=== PATIENT | male | born 1935 | race Caucasian/White ===

== ENCOUNTER 2017-02-16 12:54 | Inpatient (IN) | payer MEDICARE, OTHER ==
--- NOTE | 2017-02-16 13:26 | PDOC ---
History of Present Illness - General Chief Complaint: Shortness of Breath Stated Complaint: DIFFICULTY BREATHING Time Seen by Provider: 02/16/17 13:15 History Source: Patient, Spouse Exam Limitations: No Limitations - History of Present Illness Initial Comments: 81 yo M history HTN, hypothyroid, afib presents with pna. He saw Dr. Cox earlier today, was referred for CXR that showed pna and B/L pleural effusions. He was short of breath, cough producing brown sputum. His shortness of breath improved with oxygen, given at his PMD's office. He had a CT of the chest, as well, which also showed the effusions and consolidation. He was sent for admission. Past History - Past Medical History Allergies/Adverse Reactions: Allergies Allergy/AdvReac Type Severity Reaction Status Date / Time Penicillins Allergy Verified 02/16/17 13:24 Home Medications: Ambulatory Orders Aspirin [ASA -] 81 mg PO DAILY 02/16/17 Atorvastatin Ca [Lipitor] 40 mg PO HS 02/16/17 Dabigatran Etexilate Mesylate [Pradaxa -] 150 mg PO BID 02/16/17 Levothyroxine [Synthroid -] 25 mcg PO DAILY 02/16/17 Metoprolol Succinate [Toprol Xl -] 25 mg PO DAILY 02/16/17 Ranolazine [Ranexa -] 500 mg PO BID 02/16/17 Tamsulosin HCl [Flomax] 0.4 mg PO DAILY 02/16/17 - Psycho/Social/Smoking Cessation Hx Suicidal Ideation: No Smoking History: Never smoked Hx Alcohol Use: No Drug/Substance Use Hx: No Review of Systems - Review of Systems Able to Perform ROS?: Yes Comments:: GENERAL/CONSTITUTIONAL: +Fever/chills. No weakness. HEAD, EYES, EARS, NOSE AND THROAT: No change in vision. No ear pain or discharge. No sore throat. CARDIOVASCULAR: No chest pain. +Shortness of breath. RESPIRATORY: +Cough. No wheezing or hemoptysis. GASTROINTESTINAL: No nausea, vomiting, diarrhea or constipation. GENITOURINARY: No dysuria, frequency, or change in urination. MUSCULOSKELETAL: No joint or muscle swelling or pain. No neck or back pain. SKIN: No rash NEUROLOGIC: No headache, vertigo, loss of consciousness, or change in strength/ sensation. ENDOCRINE: No increased thirst. No abnormal weight change. HEMATOLOGIC/LYMPHATIC: No anemia, easy bleeding, or history of blood clots. ALLERGIC/IMMUNOLOGIC: No hives or skin allergy. *Physical Exam - Vital Signs Last Vital Signs Temp Pulse Resp BP Pulse Ox 101.5 F H 96 H 19 154/84 90 L 02/16/17 13:22 02/16/17 13:22 02/16/17 13:22 02/16/17 13:22 02/16/17 13:22 - Physical Exam Comments: GENERAL: Awake, alert, and fully oriented, in no acute distress. Appears ill but nontoxic. HEAD: No signs of trauma EYES: PERRLA, EOMI, sclera anicteric, conjunctiva clear ENT: Auricles normal inspection, hearing grossly normal, nares patent, oropharynx clear without exudates. Moist mucosa NECK: Normal ROM, supple, no lymphadenopathy, JVD, or masses LUNGS: Breath sounds equal, clear to auscultation bilaterally. No wheezes, and no crackles HEART: Regular rate and rhythm, normal S1 and S2, no murmurs, rubs or gallops ABDOMEN: Soft, nontender, normoactive bowel sounds. No guarding, no rebound. No masses EXTREMITIES: Normal range of motion, no edema. No clubbing or cyanosis. No cords, erythema, or tenderness NEUROLOGICAL: Cranial nerves II through XII grossly intact. Normal speech, normal gait SKIN: Warm, Dry, normal turgor, no rashes or lesions noted. Heart Score/ECG Review - ECG Impressions Comment:: EKG read 13:24- afib 90 bpm, incomplete RBBB ED Treatment Course - LABORATORY CBC & Chemistry Diagram: 02/16/17 13:53 02/16/17 13:53 Medical Decision Making - Medical Decision Making Case d/w Dr. Spears. Will admit for pna. I have treated with levaquin for CAP. Will place on tele, as patient was desatting off O2, requiring 4L nasal cannula. *DC/Admit/Observation/Transfer Diagnosis at time of Disposition: Pleural effusion Pneumonia Qualifiers: Pneumonia type: due to unspecified organism Laterality: unspecified laterality Lung location: unspecified part of lung Qualified Code(s): J18.9 - Pneumonia, unspecified organism - Discharge Dispostion Condition at time of disposition: Guarded Admit: Yes
[2017-02-16] MEDS ORDERED: LEVOFLOXACIN 750 MG IVPB 150 ML IVPB ONE ×2 (13:43→13:56)
[2017-02-16] MEDS ORDERED: ACETAMINOPHEN 650 MG/20.3 ML ORAL SOLUTION (CUPS) ONE (13:56)
[2017-02-16 14:08] LABS: BASOPHIL 0.4 % (0-2.0); EOSINOPHIL 0.8 % (0-4.5); MCH 27.3 pg (25.7-33.7); MCHC 31.7 g/dl (32.0-35.9); MEAN CELL VOLUME 86.1 fl (80-96); MEAN PLT VOLUME 8.9 fl (7.5-11.1); NEUTROPHILS 77.5 % (42.8-82.8); PLATELET COUNT 167 K/MM3 (134-434); RDW 15.1 % (11.9-15.9); WHITE BLOOD COUNT 6.8 K/mm3 (4.0-10.0)
[2017-02-16 14:15] LABS: URINE APPEARANCE CLEAR; URINE BILIRUBIN NEGATIVE (NEGATIVE); URINE BLOOD NEGATIVE (NEGATIVE); URINE COLOR LTYELLOW; URINE GLUCOSE (UA) NEGATIVE (NEGATIVE); URINE KETONE 1+ (NEGATIVE); URINE LEUK ESTERASE NEGATIVE (NEGATIVE); URINE NITRITE NEGATIVE (NEGATIVE); URINE PROTEIN NEGATIVE (NEGATIVE); URINE UROBILINOGEN 2.0 E.U/dl E.U./dl (0.2-1.0)
[2017-02-16] MEDS ORDERED: ACETAMINOPHEN 325 MG TABLET (FP) PO ONE (14:20)
[2017-02-16] MEDS ORDERED: SODIUM CHLORIDE 1,000 ML IV STA (14:20)
[2017-02-16 14:21] LABS: ALBUMIN 3.3 g/dl (3.4-5.0); ANION GAP 12 (8-16); CALCIUM 7.9 mg/dL (8.5-10.1); CO2 28 mmol/L (21-32); CREATININE 0.8 mg/dL (0.7-1.3); GLUCOSE,RANDOM 123 mg/dL (74-106); SGPT/ALT 16 U/L (12-78)
[2017-02-16 14:22] LABS: INR 1.4 (0.82-1.09); PROTHROMBIN TIME (PATIENT) 15.5 SEC (9.98-11.88)
[2017-02-16 14:25] LABS: ACTIVATED PTT 34.5 SECONDS (26.9-34.4)
[2017-02-16 14:43] LABS: ALK PHOS 103 U/L (45-117); BILIRUBIN,TOTAL 1.1 mg/dL (0.2-1.0); SGOT/AST 13 U/L (15-37); TOT PROT 6.3 g/dl (6.4-8.2); TROPONIN I 0.02 ng/ml (0.00-0.05)
[2017-02-16 14:52] LABS: VENOUS PH 7.42 (7.32-7.42)
[2017-02-16 14:56] LABS: VENOUS BLOOD GAS HCO3 26.8 meq/L (19-25)
[2017-02-16 17:23] VITALS: BMI 23.6
[2017-02-16] MEDS ORDERED: DEXTROSE IV ONE (22:00)
[2017-02-16] MEDS ORDERED: [UNRECOGNIZED DRUG - OTHER] IV ONE (22:00)
--- NOTE | 2017-02-16 23:32 | HP ---
Admitting History and Physical - Admission Chief Complaint: Shortness of breath History of Present Illness: Pt is a 81 y/o male w/ PMH significant for HTN, afib, PPM, hypothyroidism and BPH. Pt presented to his PMD w/ a productive cough w/ dark sputum and dyspnea. He was also found to be in rapid afib w/ heart rate of >110. Pt denies any chest pain. A CXR done in the office showed consolidation. Pt is slightly tremulous and feeling weak w/ poor appetite. In the ER pt found to have heart rate of 90's and O2 sat of 90. History Source: Patient - Past Medical History Cardiovascular: Yes: AFIB, HTN Renal/: Yes: BPH Endocrine: Yes: Hypothyroidism - Past Surgical History Past Surgical History: Yes: Permanent Pacemaker - Smoking History Smoking history: Never smoked - Alcohol/Substance Use Hx Alcohol Use: No Home Medications - Allergies Allergies/Adverse Reactions: Allergies Allergy/AdvReac Type Severity Reaction Status Date / Time Penicillins Allergy Verified 02/16/17 13:24 - Home Medications Home Medications: Ambulatory Orders Aspirin [ASA -] 81 mg PO DAILY 02/16/17 Atorvastatin Ca [Lipitor] 40 mg PO HS 02/16/17 Dabigatran Etexilate Mesylate [Pradaxa -] 150 mg PO BID 02/16/17 Levothyroxine [Synthroid -] 25 mcg PO DAILY 02/16/17 Metoprolol Succinate [Toprol Xl -] 25 mg PO DAILY 02/16/17 Ranolazine [Ranexa -] 500 mg PO BID 02/16/17 Tamsulosin HCl [Flomax] 0.4 mg PO DAILY 02/16/17 Family Disease History - Family Disease History Family History: Unremarkable Review of Systems - Review of Systems Constitutional: reports: Loss of Appetite, Malaise, Weakness Eyes: reports: No Symptoms HENT: reports: No Symptoms Neck: reports: No Symptoms Cardiovascular: reports: Shortness of Breath Respiratory: reports: Cough, SOB Gastrointestinal: reports: No Symptoms Physical Examination Vital Signs: Vital Signs Temperature 97.6 F 02/16/17 18:00 Pulse Rate 88 02/16/17 18:00 Respiratory Rate 18 02/16/17 18:00 Blood Pressure 150/81 02/16/17 18:00 O2 Sat by Pulse Oximetry (%) 97 02/16/17 20:28 Constitutional: Yes: Well Nourished Eyes: Yes: WNL HENT: Yes: WNL Neck: Yes: Supple Cardiovascular: Yes: Tachycardia Respiratory: Yes: Rhonchi Gastrointestinal: Yes: WNL, Normal Bowel Sounds, Soft Musculoskeletal: Yes: WNL Extremities: Yes: WNL Edema: No Neurological: Yes: WNL, Alert, Oriented Problem List - Problems (1) Pneumonia Assessment/Plan: Cont IV levaquin/nebulizer Lactic acid increased therefore pt started on IVF Repeat level in am O2 sat improved w/ NC Pulmonary consult Code(s): J18.9 - PNEUMONIA, UNSPECIFIED ORGANISM Qualifiers: Pneumonia type: due to unspecified organism Laterality: unspecified laterality Lung location: unspecified part of lung Qualified Code(s): J18.9 - Pneumonia, unspecified organism (2) Pleural effusion Code(s): J90 - PLEURAL EFFUSION, NOT ELSEWHERE CLASSIFIED Assessment/Plan 1. Afib Heart rate slightly elevated Cardio consult Cont pradaxa/metoprolol 2. HTN BP slightly elevated Cont meds 3. BPH Cont flomax 4. Hypothyroidism Cont levothyroxine Check TSH
[2017-02-17] MEDS: DEXTROSE 5%-0.45% SALINE 1,000 ML IV SCH ×2 (05:27→19:15)
[2017-02-17] MEDS: LEVOTHYROXINE NA 25 MCG TABLET (FP) PO SCH (06:26)
[2017-02-17 07:26] LABS: BASOPHIL 0.1 % (0-2.0); MCH 27.7 pg (25.7-33.7); MCHC 32.9 g/dl (32.0-35.9); MEAN CELL VOLUME 84.2 fl (80-96); MEAN PLT VOLUME 8.8 fl (7.5-11.1); NEUTROPHILS 87.3 % (42.8-82.8); PLATELET COUNT 154 K/MM3 (134-434); RDW 14.7 % (11.9-15.9); WHITE BLOOD COUNT 5.6 K/mm3 (4.0-10.0)
[2017-02-17] MEDS: TAMSULOSIN HCL 0.4 MG CAP.ER.24H (FP) PO SCH (08:14)
[2017-02-17 08:15] LABS: ALBUMIN 2.9 g/dl (3.4-5.0); ANION GAP 10 (8-16); BILIRUBIN,TOTAL 0.6 mg/dL (0.2-1.0); CALCIUM 7.8 mg/dL (8.5-10.1); CO2 27 mmol/L (21-32); CREATININE 0.7 mg/dL (0.7-1.3); GLUCOSE,RANDOM 232 mg/dL (74-106); SGOT/AST 13 U/L (15-37); SGPT/ALT 18 U/L (12-78)
[2017-02-17 08:24] LABS: ALK PHOS 95 U/L (45-117); THYROID STIMULATING HORMONE 0.44 uIU/ml (0.358-3.74)
--- NOTE | 2017-02-17 08:44 | CON.CARD ---
Consult Consult Specialty:: Cardiology Referred by:: Dr. Spears Reason for Consultation:: SOB - History of Present Illness Chief Complaint: SOB History of Present Illness: 81 year old man h/o HTN, HLD, CAD s/p CABG 10/2011, Afib on pradaxa, PPM, Moderate MR, chronic diastolic CHF, mild pah, admitted for sob, hypoxia, PNA. Pt seen and examined today in nad. states he is feeling better. denies any chest pain. no edema. no palpitations, lightheadedness, dizziness, syncope, near syncope. no pnd, orthopnea. - History Source History Provided By: Patient, Medical Record Limitations to Obtaining History: Language Barrier - Past Medical History Cardio/Vascular: Yes: AFIB, CAD, CHF, HTN, Hyperlipdemia, Mitral Insufficiency, Murmur, Pulmonary Hypertension Pulmonary: Yes: Pneumonia Renal/: Yes: BPH Endocrine: Yes: Hypothyroidism - Past Surgical History Past Surgical History: Yes: Permanent Pacemaker - Alcohol/Substance Use Hx Alcohol Use: No - Smoking History Smoking history: Never smoked - Social History ADL: Independent History of Recent Travel: No Home Medications - Allergies Allergies/Adverse Reactions: Allergies Allergy/AdvReac Type Severity Reaction Status Date / Time Penicillins Allergy Verified 02/16/17 13:24 - Home Medications Home Medications: Ambulatory Orders Aspirin [ASA -] 81 mg PO DAILY 02/16/17 Atorvastatin Ca [Lipitor] 40 mg PO HS 02/16/17 Dabigatran Etexilate Mesylate [Pradaxa -] 150 mg PO BID 02/16/17 Levothyroxine [Synthroid -] 25 mcg PO DAILY 02/16/17 Metoprolol Succinate [Toprol Xl -] 25 mg PO DAILY 02/16/17 Ranolazine [Ranexa -] 500 mg PO BID 02/16/17 Tamsulosin HCl [Flomax] 0.4 mg PO DAILY 02/16/17 Family Disease History - Family Disease History Family History: Denies Review of Systems - Review of Systems Constitutional: reports: Malaise, Weakness. denies: No Symptoms, Chills, Diaphoresis, Fever, Lethargy, Loss of Appetite, Night Sweats, Unintentional Wgt. Loss, Other Eyes: denies: No Symptoms, Blind Spots, Blurred Vision, Double Vision, Eye Pain , Floaters, Photophobia, Recent Change in Vision, Other HENT: denies: No Symptoms, Difficult Swallowing, Ear Discharge, Ear Pain, Epistaxis, Gingival Bleeding, Hearing Loss, Mouth Swelling, Nasal Congestion, Ocular Prosthesis, Throat Pain, Toothache, Ringing in Ears, Other Neck: denies: No Symptoms, Decreased ROM, Lumps, Pain on Movement, Stiffness, Swollen Glands, Tenderness, Other Cardiovascular: reports: Shortness of Breath. denies: No Symptoms, Chest Pain, Edema, Palpitations, Other Respiratory: reports: Cough, Exercise Intolerance, SOB, SOB on Exertion. denies : No Symptoms, Hemoptysis, Orthopnea, PND, Snoring, Wheezing, Other Gastrointestinal: denies: No Symptoms, Abdominal Pain, Bloating, Constipation, Diarrhea, Dysphagia, Indigestion, Melena, Nausea, Rectal Bleeding, Vomiting, Vomiting Blood, Other Genitourinary: denies: No Symptoms, Burning, Discharge, Dysuria, Flank Pain, Frequency, Hematuria, Incontinence, Lesions, Menses, Pain, Testicular Mass, Testicular Pain, Testicular Swelling, Urgency, Vaginal Bleeding, Other Breasts: denies: No Symptoms Reported, See HPI, Breast Implants, Discharge from Nipple, Lumps, Pain, Skin Changes, Other Musculoskeletal: denies: No Symptoms, Back Pain, Crepitus, Decreased ROM, Extremity Pain, Joint Pain, Joint Swelling, Muscle Pain, Muscle Cramps, Muscle Weakness, Other Integumentary: denies: No Symptoms, Blister, Bruising, Change in Color, Eczema, Erythema, Incision, Lesions, Lump, Pallor, Pruritis, Rash, Wound, Other Neurological: denies: No Symptoms, Change in LOC, Change in Speech, Confusion, Dizziness, Headache, Incoordination, Numbness, Parasthesia, Pre-Existing Deficit , Seizure, Syncope, Tremors, Unsteady Gait, Weakness, Other Endocrine: denies: No Symptoms, Excessive Sweating, Flushing, Increased Hunger, Increased Thirst, Intolerance to Cold, Intolerance to Heat, Unexplained Weight Gain, Unexplained Weight Loss, Other Hematology/Lymphatic: denies: No Symptoms, Easily Bruised, Excessive Bleeding, Swollen Glands, Other Psychiatric: denies: No Symptoms, Altered Sleep Pattern, Anxiety, Depression, Hallucinations, Panic, Paranoia, Suicidal, Other - Risk Factors Known Risk Factors: Yes: Hypercholesterolemia, Hypertension Vital Signs: Vital Signs Temperature 98.7 F 02/16/17 23:00 Pulse Rate 82 02/17/17 06:00 Respiratory Rate 20 02/17/17 06:00 Blood Pressure 148/79 02/17/17 06:00 O2 Sat by Pulse Oximetry (%) 97 02/16/17 20:28 Constitutional: Yes: Well Nourished, No Distress, Calm Eyes: Yes: WNL, Conjunctiva Clear, EOM Intact HENT: Yes: WNL, Atraumatic, Normocephalic Neck: Yes: WNL, Supple, Trachea Midline Respiratory: Yes: Regular, Diminished, On Nasal O2, Rales, Rhonchi. No: Wheezes Gastrointestinal: Yes: WNL, Normal Bowel Sounds, Soft. No: Distention, Tenderness Renal/: Yes: WNL Cardiovascular: Yes: Pulse Irregular. No: Regular Rate and Rhythm, Bradycardia , Tachycardia, Gallop, Rub, Varicosities JVD: No Carotid Bruit: No PMI: Non-Displaced Heart Sounds: Yes: S1, S2. No: Split S2, S3, S4, Clicks, Gallop, Rub, Bruit Murmur: Yes: Systolic Murmur. No: Diastolic Murmur Musculoskeletal: Yes: WNL Extremities: Yes: WNL Edema: No Peripheral Pulses WNL: Yes Peripheral Pulses: 2+ Left Doralis Pedis, 2+ Right Dorsalis Pedis Integumentary: Yes: WNL Neurological: Yes: WNL, Alert, Oriented, Cran Nerves II-XII Intact ...Motor Strength: WNL Psychiatric: Yes: WNL, Alert, Oriented - Other Data Labs, Other Data: CBC, BMP 02/17/17 05:35 INR, PTT INR 1.40 (0.82-1.09) H 02/16/17 13:53 ekg-AFib 100bpm, incomplete RBBB, nsst Echo: Report Reviewed Prior Cardiac Procedures: CABG Imaging - Results Chest X-ray: Report Reviewed, Image Reviewed EKG: Report Reviewed, Image Reviewed Other: Report Reviewed, Image Reviewed (tele-afib, HR overall adequately controlled) Problem List - Problems (1) Pleural effusion Code(s): J90 - PLEURAL EFFUSION, NOT ELSEWHERE CLASSIFIED (2) Pneumonia Code(s): J18.9 - PNEUMONIA, UNSPECIFIED ORGANISM Qualifiers: Pneumonia type: due to unspecified organism Laterality: unspecified laterality Lung location: unspecified part of lung Qualified Code(s): J18.9 - Pneumonia, unspecified organism (3) SOB (shortness of breath) Code(s): R06.02 - SHORTNESS OF BREATH (4) Hypoxemia Code(s): R09.02 - HYPOXEMIA (5) CAD (coronary artery disease) Code(s): I25.10 - ATHSCL HEART DISEASE OF [place] CORONARY ARTERY W/O ANG PCTRS (6) Hx of CABG Code(s): Z95.1 - PRESENCE OF AORTOCORONARY BYPASS GRAFT (7) Chronic atrial fibrillation Code(s): I48.2 - CHRONIC ATRIAL FIBRILLATION (8) HTN (hypertension) Code(s): I10 - ESSENTIAL (PRIMARY) HYPERTENSION (9) HLD (hyperlipidemia) Code(s): E78.5 - HYPERLIPIDEMIA, UNSPECIFIED (10) Pulmonary HTN Code(s): I27.2 - OTHER SECONDARY PULMONARY HYPERTENSION (11) Mitral regurgitation Code(s): I34.0 - NONRHEUMATIC MITRAL (VALVE) INSUFFICIENCY (12) Acute on chronic diastolic (congestive) heart failure Code(s): I50.33 - ACUTE ON CHRONIC DIASTOLIC (CONGESTIVE) HEART FAILURE Assessment/Plan 81 year old man h/o HTN, HLD, CAD s/p CABG 10/2011, JAVIER ligation, Afib on pradaxa, PPM, Moderate MR, severe TR, chronic diastolic CHF, mild pah, COPD, admitted for sob, hypoxia, PNA. Pt seen and examined today in nad. states he is feeling better. denies any chest pain. no edema. no palpitations, lightheadedness, dizziness, syncope, near syncope. no pnd, orthopnea. SOB-hypoxia, multifactorial, pna, copd, acute on chronic diastolic CHF, valvular heart disease -cont Abx -can give trial of Lasix 20mg IV daily -monitor I/Os and daily weights -monitor bun/creat -monitor and replete electrolytes as needed -pulmonary to evaluate Atrial fibrillation-chronic, HR adequately controlled, h/o PPM -cont toprol, pradaxa CAD h/o cabg, stable -cont asa, statin, ranexa Recent cardiac work up: Stress- 03/31- 3:30 julia, no cp, ecg neg at 89%mphr, no ischemia, lvef 60% Cath- mod phtn, nml lv function, mod mr, sever lm dz, mod lcx and ostial ramus, non obs rca 09/26 Echo- 03/31- no effusion, nml lv fxn, severe tr, rvsp 31, mild lvh, ppm wire, lae Carotid 03/31- Bilateral mild calcified plaque with no evidence of significant stenosis. PPM interrogation- 03/31- [employer] Single Chamber PPM VVI 60underlying rhythm sinusbattery status 8 years22% [id number] vent episodes since 02/15/15- all appear to be rapidly conducting afib- longest 1min 29 sec w avg rate 148
[2017-02-17] MEDS: METOPROLOL SUCCINATE 25 MG TAB.SR.24H (FP) PO SCH (09:52)
[2017-02-17] MEDS: LEVOFLOXACIN 500 MG IVPB 100 ML IVPB SCH (09:52)
[2017-02-17] MEDS: DABIGATRAN ETEXILATE MESYLATE 150 MG CAPSULE PO SCH ×2 (09:52→21:17)
[2017-02-17] MEDS: RANOLAZINE E.R. 500 MG TABLET (FP) PO SCH ×2 (09:52→21:17)
[2017-02-17] MEDS: ASPIRIN 81 MG CHEWABLE TABLETS PO SCH (09:52)
[2017-02-17] MEDS: ALBUTEROL SO4 2.5/IPRATROPIUM 0.5 INH SOL 3 ML VIAL.NEB. NEB PRN ×2 (10:40→22:05)
--- NOTE | 2017-02-17 11:28 | PN ---
Progress Note (short form) - Note Progress Note: PULMONARY CONSULTATION DICTATED 02/17/17 IMP ACUTE HYPOXEMIC RESPIRATORY FAILURE RUL PNEUMONIA HEMOPTYSIS SECONDARY TO PNEUMONIA CHF DECOMPENSATED PULMONARY HTN AFIB S/P PPM HTN HLD ELEVATED LACTATE LEVEL PLAN IV ANTIBIOTICS INHALED BRONCHODILATORS NASAL O2 SPUTUM C+S CHEST CT LASIX PRN TREND LACTATE DR TORRES Problem List - Problems (1) Acute hypoxemic respiratory failure Code(s): J96.01 - ACUTE RESPIRATORY FAILURE WITH HYPOXIA (2) Hemoptysis Code(s): R04.2 - HEMOPTYSIS (3) Acute on chronic diastolic (congestive) heart failure Code(s): I50.33 - ACUTE ON CHRONIC DIASTOLIC (CONGESTIVE) HEART FAILURE (4) CAD (coronary artery disease) Code(s): I25.10 - ATHSCL HEART DISEASE OF [place] CORONARY ARTERY W/O ANG PCTRS (5) Chronic atrial fibrillation Code(s): I48.2 - CHRONIC ATRIAL FIBRILLATION (6) HLD (hyperlipidemia) Code(s): E78.5 - HYPERLIPIDEMIA, UNSPECIFIED (7) HTN (hypertension) Code(s): I10 - ESSENTIAL (PRIMARY) HYPERTENSION (8) Hx of CABG Code(s): Z95.1 - PRESENCE OF AORTOCORONARY BYPASS GRAFT (9) Hypoxemia Code(s): R09.02 - HYPOXEMIA (10) Mitral regurgitation Code(s): I34.0 - NONRHEUMATIC MITRAL (VALVE) INSUFFICIENCY (11) Pleural effusion Code(s): J90 - PLEURAL EFFUSION, NOT ELSEWHERE CLASSIFIED (12) Pneumonia Code(s): J18.9 - PNEUMONIA, UNSPECIFIED ORGANISM Qualifiers: Pneumonia type: due to unspecified organism Laterality: unspecified laterality Lung location: unspecified part of lung Qualified Code(s): J18.9 - Pneumonia, unspecified organism (13) Pulmonary HTN Code(s): I27.2 - OTHER SECONDARY PULMONARY HYPERTENSION (14) SOB (shortness of breath) Code(s): R06.02 - SHORTNESS OF BREATH (15) Elevated lactic acid level Code(s): R79.89 - OTHER SPECIFIED ABNORMAL FINDINGS OF BLOOD CHEMISTRY
[2017-02-17] MEDS: FUROSEMIDE 40 MG/4 ML INJECTABLE VIAL IVPUSH SCH (12:48)
--- NOTE | 2017-02-17 17:38 | EKG ---
Test Reason : Blood Pressure : / mmHG Vent. Rate : 090 BPM Atrial Rate : 079 BPM P-R Int : 000 ms QRS Dur : 098 ms QT Int : 354 ms P-R-T Axes : 000 069 030 degrees QTc Int : 433 ms ATRIAL FIBRILLATION INCOMPLETE RIGHT BUNDLE BRANCH BLOCK ABNORMAL ECG NO PREVIOUS ECGS AVAILABLE Confirmed by WATSON HOLLOWAY MD ([id number]) on 02/17/2017 5:38:28 PM Referred By: Confirmed By:WATSON HOLLOWAY MD
--- NOTE | 2017-02-17 20:14 | PN ---
Progress Note, Physician - Current Medication List Current Medications: Active Medications Albuterol/Ipratropium (Duoneb -) 1 amp NEB Q6H PRN PRN Reason: SHORTNESS OF BREATH Last Admin: 02/17/17 10:40 Dose: 1 amp Aspirin (Asa -) 81 mg PO DAILY [facility] Last Admin: 02/17/17 09:52 Dose: 81 mg Atorvastatin Calcium (Lipitor -) 40 mg PO HS [facility] Dabigatran (Pradaxa -) 150 mg PO BID [facility] Last Admin: 02/17/17 09:52 Dose: 150 mg Furosemide (Lasix Injection -) 20 mg IVPUSH DAILY [facility] Last Admin: 02/17/17 12:48 Dose: 20 mg Dextrose/Sodium Chloride (D5-1/2ns -) 1,000 mls @ 75 mls/hr IV ASDIR [facility] Last Admin: 02/17/17 19:15 Dose: 75 mls/hr Levofloxacin (Levaquin 500 Mg Premixed Ivpb -) 100 mls @ 100 mls/hr IVPB DAILY [facility] Last Admin: 02/17/17 09:52 Dose: 100 mls/hr Levothyroxine Sodium (Synthroid -) 25 mcg PO DAILY@0700 [facility] Last Admin: 02/17/17 06:26 Dose: 25 mcg Metoprolol Succinate (Toprol Xl -) 25 mg PO DAILY [facility] Last Admin: 02/17/17 09:52 Dose: 25 mg Ranolazine (Ranexa -) 500 mg PO BID [facility] Last Admin: 02/17/17 09:52 Dose: 500 mg Tamsulosin HCl (Flomax -) 0.4 mg PO DAILY@0830 [facility] Last Admin: 02/17/17 08:14 Dose: 0.4 mg - Objective Vital Signs: Vital Signs Temperature 97.9 F 02/17/17 20:02 Pulse Rate 90 02/17/17 20:02 Respiratory Rate 20 02/17/17 20:02 Blood Pressure 146/84 02/17/17 20:02 O2 Sat by Pulse Oximetry (%) 94 L 02/17/17 20:02 Constitutional: Yes: No Distress HENT: Yes: Atraumatic Neck: Yes: Supple Cardiovascular: Yes: Regular Rate and Rhythm Respiratory: Yes: Rhonchi Gastrointestinal: Yes: Normal Bowel Sounds Extremities: Yes: WNL Neurological: Yes: Alert, Oriented Labs: CBC, BMP 02/17/17 05:35 02/17/17 05:35 INR, PTT INR 1.40 (0.82-1.09) H 02/16/17 13:53 Assessment/Plan A/P 1.RUL PNA IV ABX DUO NEBS 2.HEMOPTYSIS SECONDARY TO PNA FU H/H 3.CHF ON LASIX 4.AFIB 5.HTN 6.HLD REVIEWED AL [facility] CONTINUE CURRENT MANAGEMENT FU LABS ROUNDING FOR DR CAMPOS TODAY
--- NOTE | 2017-02-17 20:38 | CONS ---
DATE OF CONSULTATION: 02/17/2017 REFERRING PHYSICIAN: Jolly Spears MD HISTORY OF PRESENT ILLNESS: The patient is an 81-year-old male with an extensive past medical history including ASHD, status post CABG in 2010, atrial fibrillation that is maintained on Pradaxa, status post permanent pacemaker, mitral regurgitation, chronic diastolic CHF, mild pulmonary hypertension, hypertension, hyperlipidemia, history of smoking many years ago, admitted to [facility] with shortness of breath, cough, and hypoxemia. Patient apparently was seen earlier in the day by his PMD, at which time a chest x-ray was performed, which revealed evidence of pneumonia as well as pleural effusion, at which time he presented to the emergency room. Patient denies any chest pain. He does state that he had a fever a couple of days ago, not any chills. He denies any history of occupational exposure to chemicals or fumes. There is no evidence of DVT or PE in the past. There is no history of recent travel. He was born in the [place] and moved to the [place] years ago. On admission, he was placed on broad spectrum antibiotics. He was evaluated by Dr. James for cardiology consultation, who felt that the patient was slightly hypoxemic secondary to pneumonia as well as probably COPD as well as mild diastolic CHF. PAST MEDICAL HISTORY: Again includes ASHD, status post CABG, atrial fibrillation on Pradaxa, hypertension, pulmonary hypertension, hyperlipidemia, mitral regurgitation, chronic diastolic CHF. REVIEW OF SYSTEMS: Positive cough, positive sputum, positive hemoptysis. No chest pain, no palpitations. Positive fever. No chills. No abdominal pain. CURRENT MEDICATIONS: Include Levaquin, Pradaxa, ceftriaxone, Flomax, DuoNeb, metoprolol, Ranexa, Lipitor, aspirin, Synthroid. PHYSICAL EXAMINATION: General: The patient is an elderly, male, thin, well-developed, awake and alert, in no acute distress. Vital signs: He is currently afebrile. Blood pressure 148/79, respiratory rate 20, O2 saturation is 97% on 2 L. HEENT: Examination is normocephalic, atraumatic. Neck: Supple. Heart: Irregular. Normal S1, S2. Chest: He has bilateral rhonchi. Abdomen: Soft. Bowel sounds positive. Extremities: No sign of edema. LABORATORY: WBC is 5.6, hemoglobin 11.7, hematocrit 35.6, platelet count of 154,000, INR is 1.40. Venous blood gas shows pH of 7.42, PCO2 of 42, PO2 36. Electrolytes: BUN is 11, creatinine 0.7, lactate level is 2.69. Chest x-ray reveals cardiomegaly, infiltrate in the right upper lobes, atelectasis of the right base, mild congestion. Small bilateral pleural effusion. IMPRESSION: Acute hypoxemic respiratory failure secondary to multiple factors: 1. Right upper lobe pneumonia, community acquired. 2. Decompensated congestive heart failure. 3. Atrial fibrillation. 4. Pulmonary hypertension. 5. Hypertension. PLAN: Broad spectrum antibiotics, CT scan of the chest, inhaled bronchodilators, diuretics, sputum culture and sensitivity. Thank you. I will follow closely with you. DANIA TORRES M.D. [id number]
[2017-02-17] MEDS: ATORVASTATIN CA 40 MG TABLET (FP) PO SCH (21:17)
[2017-02-18] MEDS: LEVOTHYROXINE NA 25 MCG TABLET (FP) PO SCH (06:32)
[2017-02-18] MEDS: DEXTROSE 5%-0.45% SALINE 1,000 ML IV SCH (08:00)
[2017-02-18] MEDS: RANOLAZINE E.R. 500 MG TABLET (FP) PO SCH ×2 (09:15→21:40)
[2017-02-18] MEDS: LEVOFLOXACIN 500 MG IVPB 100 ML IVPB SCH (09:15)
[2017-02-18] MEDS: ASPIRIN 81 MG CHEWABLE TABLETS PO SCH (09:15)
[2017-02-18] MEDS: FUROSEMIDE 40 MG/4 ML INJECTABLE VIAL IVPUSH SCH (09:15)
[2017-02-18] MEDS: DABIGATRAN ETEXILATE MESYLATE 150 MG CAPSULE PO SCH ×2 (09:15→21:40)
[2017-02-18] MEDS: METOPROLOL SUCCINATE 25 MG TAB.SR.24H (FP) PO SCH (09:15)
[2017-02-18] MEDS: TAMSULOSIN HCL 0.4 MG CAP.ER.24H (FP) PO SCH (09:15)
--- NOTE | 2017-02-18 09:18 | PN ---
Progress Note, Physician Chief Complaint: no distress TELE: AF w/ average rate < 100bpm - Current Medication List Current Medications: Active Medications Albuterol/Ipratropium (Duoneb -) 1 amp NEB Q6H PRN PRN Reason: SHORTNESS OF BREATH Last Admin: 02/17/17 22:05 Dose: 1 amp Aspirin (Asa -) 81 mg PO DAILY [facility] Last Admin: 02/18/17 09:15 Dose: 81 mg Atorvastatin Calcium (Lipitor -) 40 mg PO HS [facility] Last Admin: 02/17/17 21:17 Dose: 40 mg Dabigatran (Pradaxa -) 150 mg PO BID [facility] Last Admin: 02/18/17 09:15 Dose: 150 mg Furosemide (Lasix Injection -) 20 mg IVPUSH DAILY [facility] Last Admin: 02/18/17 09:15 Dose: 20 mg Dextrose/Sodium Chloride (D5-1/2ns -) 1,000 mls @ 75 mls/hr IV ASDIR [facility] Last Admin: 02/18/17 08:00 Dose: 75 mls/hr Levofloxacin (Levaquin 500 Mg Premixed Ivpb -) 100 mls @ 100 mls/hr IVPB DAILY [facility] Last Admin: 02/18/17 09:15 Dose: 100 mls/hr Levothyroxine Sodium (Synthroid -) 25 mcg PO DAILY@0700 [facility] Last Admin: 02/18/17 06:32 Dose: 25 mcg Metoprolol Succinate (Toprol Xl -) 25 mg PO DAILY [facility] Last Admin: 02/18/17 09:15 Dose: 25 mg Ranolazine (Ranexa -) 500 mg PO BID [facility] Last Admin: 02/18/17 09:15 Dose: 500 mg Tamsulosin HCl (Flomax -) 0.4 mg PO DAILY@0830 [facility] Last Admin: 02/18/17 09:15 Dose: 0.4 mg - Objective Vital Signs: Vital Signs Temperature 98.0 F 02/18/17 09:13 Pulse Rate 92 H 02/18/17 09:13 Respiratory Rate 18 02/18/17 09:13 Blood Pressure 132/57 02/18/17 09:13 O2 Sat by Pulse Oximetry (%) 94 L 02/17/17 21:00 Constitutional: Yes: Calm Eyes: Yes: Conjunctiva Clear Cardiovascular: Yes: Pulse Irregular Respiratory: Yes: Other (right basilar rales) Gastrointestinal: Yes: Soft Edema: No Neurological: Yes: Alert, Oriented Labs: CBC, BMP 02/17/17 05:35 02/17/17 05:35 INR, PTT INR 1.40 (0.82-1.09) H 02/16/17 13:53 - ....Imaging Cat Scan: Report Reviewed EKG: Image Reviewed Assessment/Plan Assessment/Plan 81 year old man h/o HTN, HLD, CAD s/p CABG 10/2011, JAVIER ligation, Afib on pradaxa, PPM, Moderate MR, severe TR, chronic diastolic CHF, mild pah, COPD, admitted for sob, hypoxia, PNA. Pt seen and examined today in nad. states he is feeling better. denies any chest pain. no edema. no palpitations, lightheadedness, dizziness, syncope, near syncope. no pnd, orthopnea. SOB-hypoxia, multifactorial, pna, copd, acute on chronic diastolic CHF, valvular heart disease -cont Abx - Lasix 20mg IV daily as there are b/l effusions on CT -monitor bun/creat -monitor and replete electrolytes as needed Atrial fibrillation-chronic, HR adequately controlled, h/o PPM -cont toprol and pradaxa CAD h/o cabg, stable -cont asa, statin, ranexa Recent cardiac work up: Stress- 03/31- 3:30 julia, no cp, ecg neg at 89%mphr, no ischemia, lvef 60% Cath- mod phtn, nml lv function, mod mr, sever lm dz, mod lcx and ostial ramus, non obs rca 09/26 Echo- 03/31- no effusion, nml lv fxn, severe tr, rvsp 31, mild lvh, ppm wire, lae Carotid 03/31- Bilateral mild calcified plaque with no evidence of significant stenosis. PPM interrogation- 03/31- SpecifiedBy Single Chamber PPM VVI 60underlying rhythm sinusbattery status 8 years22% [id number] vent episodes since 02/15/15- all appear to be rapidly conducting afib- longest 1min 29 sec w avg rate 148
--- NOTE | 2017-02-18 10:45 | PN ---
Progress Note, Physician History of Present Illness: PULMONARY ALERT,FEELING BETTER,LESS DYSPNEIC - Current Medication List Current Medications: Active Medications Albuterol/Ipratropium (Duoneb -) 1 amp NEB Q6H PRN PRN Reason: SHORTNESS OF BREATH Last Admin: 02/17/17 22:05 Dose: 1 amp Aspirin (Asa -) 81 mg PO DAILY [facility] Last Admin: 02/18/17 09:15 Dose: 81 mg Atorvastatin Calcium (Lipitor -) 40 mg PO HS [facility] Last Admin: 02/17/17 21:17 Dose: 40 mg Dabigatran (Pradaxa -) 150 mg PO BID [facility] Last Admin: 02/18/17 09:15 Dose: 150 mg Furosemide (Lasix Injection -) 20 mg IVPUSH DAILY [facility] Last Admin: 02/18/17 09:15 Dose: 20 mg Dextrose/Sodium Chloride (D5-1/2ns -) 1,000 mls @ 75 mls/hr IV ASDIR [facility] Last Admin: 02/18/17 08:00 Dose: 75 mls/hr Levofloxacin (Levaquin 500 Mg Premixed Ivpb -) 100 mls @ 100 mls/hr IVPB DAILY [facility] Last Admin: 02/18/17 09:15 Dose: 100 mls/hr Levothyroxine Sodium (Synthroid -) 25 mcg PO DAILY@0700 [facility] Last Admin: 02/18/17 06:32 Dose: 25 mcg Metoprolol Succinate (Toprol Xl -) 25 mg PO DAILY [facility] Last Admin: 02/18/17 09:15 Dose: 25 mg Ranolazine (Ranexa -) 500 mg PO BID [facility] Last Admin: 02/18/17 09:15 Dose: 500 mg Tamsulosin HCl (Flomax -) 0.4 mg PO DAILY@0830 [facility] Last Admin: 02/18/17 09:15 Dose: 0.4 mg - Objective Vital Signs: Vital Signs Temperature 98.0 F 02/18/17 09:13 Pulse Rate 92 H 02/18/17 09:13 Respiratory Rate 18 02/18/17 09:13 Blood Pressure 132/57 02/18/17 09:13 O2 Sat by Pulse Oximetry (%) 94 L 02/17/17 21:00 Constitutional: Yes: Well Nourished, Calm Eyes: Yes: WNL HENT: Yes: WNL Neck: Yes: WNL Cardiovascular: Yes: Pulse Irregular, S1, S2 Respiratory: Yes: Rales (FEW CRACKLES BILATERALLY) Gastrointestinal: Yes: Normal Bowel Sounds, Soft Extremities: Yes: WNL Edema: No Labs: CBC, BMP 02/17/17 05:35 02/17/17 05:35 INR, PTT INR 1.40 (0.82-1.09) H 02/16/17 13:53 - ....Imaging Cat Scan: Report Reviewed, Image Reviewed (BILATERAL PLEURAL EFFUSIONS WITH COMPRESSIVE ATELECTASIS,PSEUDO TUMOR R MAJOR FISSURE,-MASS) Problem List - Problems (1) Acute hypoxemic respiratory failure Code(s): J96.01 - ACUTE RESPIRATORY FAILURE WITH HYPOXIA (2) Hemoptysis Code(s): R04.2 - HEMOPTYSIS (3) Acute on chronic diastolic (congestive) heart failure Code(s): I50.33 - ACUTE ON CHRONIC DIASTOLIC (CONGESTIVE) HEART FAILURE (4) CAD (coronary artery disease) Code(s): I25.10 - ATHSCL HEART DISEASE OF [place] CORONARY ARTERY W/O ANG PCTRS (5) Chronic atrial fibrillation Code(s): I48.2 - CHRONIC ATRIAL FIBRILLATION (6) HLD (hyperlipidemia) Code(s): E78.5 - HYPERLIPIDEMIA, UNSPECIFIED (7) HTN (hypertension) Code(s): I10 - ESSENTIAL (PRIMARY) HYPERTENSION (8) Hx of CABG Code(s): Z95.1 - PRESENCE OF AORTOCORONARY BYPASS GRAFT (9) Hypoxemia Code(s): R09.02 - HYPOXEMIA (10) Mitral regurgitation Code(s): I34.0 - NONRHEUMATIC MITRAL (VALVE) INSUFFICIENCY (11) Pleural effusion Code(s): J90 - PLEURAL EFFUSION, NOT ELSEWHERE CLASSIFIED (12) Pneumonia Code(s): J18.9 - PNEUMONIA, UNSPECIFIED ORGANISM Qualifiers: Pneumonia type: due to unspecified organism Laterality: unspecified laterality Lung location: unspecified part of lung Qualified Code(s): J18.9 - Pneumonia, unspecified organism (13) Pulmonary HTN Code(s): I27.2 - OTHER SECONDARY PULMONARY HYPERTENSION (14) SOB (shortness of breath) Code(s): R06.02 - SHORTNESS OF BREATH (15) Elevated lactic acid level Code(s): R79.89 - OTHER SPECIFIED ABNORMAL FINDINGS OF BLOOD CHEMISTRY Assessment/Plan IMP ACUTE HYPOXEMIC RESPIRATORY FAILURE RUL PNEUMONIA HEMOPTYSIS SECONDARY TO PNEUMONIA CHF DECOMPENSATED PULMONARY HTN AFIB S/P PPM HTN HLD ELEVATED LACTATE LEVEL NORMAL PLAN IV ANTIBIOTICS INHALED BRONCHODILATORS NASAL O2 IV LASIX DR TORRES Problem List - Problems (1) Acute hypoxemic respiratory failure Code(s): J96.01 - ACUTE RESPIRATORY FAILURE WITH HYPOXIA (2) Hemoptysis Code(s): R04.2 - HEMOPTYSIS (3) Acute on chronic diastolic (congestive) heart failure Code(s): I50.33 - ACUTE ON CHRONIC DIASTOLIC (CONGESTIVE) HEART FAILURE (4) CAD (coronary artery disease) Code(s): I25.10 - ATHSCL HEART DISEASE OF [place] CORONARY ARTERY W/O ANG PCTRS (5) Chronic atrial fibrillation Code(s): I48.2 - CHRONIC ATRIAL FIBRILLATION (6) HLD (hyperlipidemia) Code(s): E78.5 - HYPERLIPIDEMIA, UNSPECIFIED (7) HTN (hypertension) Code(s): I10 - ESSENTIAL (PRIMARY) HYPERTENSION (8) Hx of CABG Code(s): Z95.1 - PRESENCE OF AORTOCORONARY BYPASS GRAFT (9) Hypoxemia Code(s): R09.02 - HYPOXEMIA (10) Mitral regurgitation Code(s): I34.0 - NONRHEUMATIC MITRAL (VALVE) INSUFFICIENCY (11) Pleural effusion Code(s): J90 - PLEURAL EFFUSION, NOT ELSEWHERE CLASSIFIED (12) Pneumonia Code(s): J18.9 - PNEUMONIA, UNSPECIFIED ORGANISM Qualifiers: Pneumonia type: due to unspecified organism Laterality: unspecified laterality Lung location: unspecified part of lung Qualified Code(s): J18.9 - Pneumonia, unspecified organism (13) Pulmonary HTN Code(s): I27.2 - OTHER SECONDARY PULMONARY HYPERTENSION (14) SOB (shortness of breath) Code(s): R06.02 - SHORTNESS OF BREATH (15) Elevated lactic acid level Code(s): R79.89 - OTHER SPECIFIED ABNORMAL FINDINGS OF BLOOD CHEMISTRY
[2017-02-18] MEDS: ATORVASTATIN CA 40 MG TABLET (FP) PO SCH (21:40)
--- NOTE | 2017-02-18 22:38 | PN ---
Progress Note, Physician - Current Medication List Current Medications: Active Medications Albuterol/Ipratropium (Duoneb -) 1 amp NEB Q6H PRN PRN Reason: SHORTNESS OF BREATH Last Admin: 02/17/17 22:05 Dose: 1 amp Aspirin (Asa -) 81 mg PO DAILY [facility] Last Admin: 02/18/17 09:15 Dose: 81 mg Atorvastatin Calcium (Lipitor -) 40 mg PO HS [facility] Last Admin: 02/18/17 21:40 Dose: 40 mg Dabigatran (Pradaxa -) 150 mg PO BID [facility] Last Admin: 02/18/17 21:40 Dose: 150 mg Furosemide (Lasix Injection -) 20 mg IVPUSH DAILY [facility] Last Admin: 02/18/17 09:15 Dose: 20 mg Dextrose/Sodium Chloride (D5-1/2ns -) 1,000 mls @ 75 mls/hr IV ASDIR [facility] Last Admin: 02/18/17 08:00 Dose: 75 mls/hr Levofloxacin (Levaquin 500 Mg Premixed Ivpb -) 100 mls @ 100 mls/hr IVPB DAILY [facility] Last Admin: 02/18/17 09:15 Dose: 100 mls/hr Levothyroxine Sodium (Synthroid -) 25 mcg PO DAILY@0700 [facility] Last Admin: 02/18/17 06:32 Dose: 25 mcg Metoprolol Succinate (Toprol Xl -) 25 mg PO DAILY [facility] Last Admin: 02/18/17 09:15 Dose: 25 mg Ranolazine (Ranexa -) 500 mg PO BID [facility] Last Admin: 02/18/17 21:40 Dose: 500 mg Tamsulosin HCl (Flomax -) 0.4 mg PO DAILY@0830 [facility] Last Admin: 02/18/17 09:15 Dose: 0.4 mg - Objective Vital Signs: Vital Signs Temperature 97.9 F 02/18/17 20:33 Pulse Rate 116 H 02/18/17 20:33 Respiratory Rate 20 02/18/17 20:33 Blood Pressure 149/106 02/18/17 20:33 O2 Sat by Pulse Oximetry (%) 95 02/18/17 12:09 Labs: CBC, BMP 02/17/17 05:35 02/17/17 05:35 INR, PTT INR 1.40 (0.82-1.09) H 02/16/17 13:53 Problem List - Problems (1) Pneumonia Code(s): J18.9 - PNEUMONIA, UNSPECIFIED ORGANISM Qualifiers: Pneumonia type: due to unspecified organism Laterality: unspecified laterality Lung location: unspecified part of lung Qualified Code(s): J18.9 - Pneumonia, unspecified organism (2) Pleural effusion Code(s): J90 - PLEURAL EFFUSION, NOT ELSEWHERE CLASSIFIED
[2017-02-19] MEDS: DEXTROSE 5%-0.45% SALINE 1,000 ML IV SCH (01:12)
[2017-02-19] MEDS: LEVOTHYROXINE NA 25 MCG TABLET (FP) PO SCH (06:12)
[2017-02-19] MEDS: FUROSEMIDE 40 MG/4 ML INJECTABLE VIAL IVPUSH SCH (09:25)
[2017-02-19] MEDS: DABIGATRAN ETEXILATE MESYLATE 150 MG CAPSULE PO SCH ×2 (09:25→21:25)
[2017-02-19] MEDS: RANOLAZINE E.R. 500 MG TABLET (FP) PO SCH ×2 (09:25→21:25)
[2017-02-19] MEDS: TAMSULOSIN HCL 0.4 MG CAP.ER.24H (FP) PO SCH (09:25)
[2017-02-19] MEDS: METOPROLOL SUCCINATE 25 MG TAB.SR.24H (FP) PO SCH (09:25)
[2017-02-19] MEDS: ASPIRIN 81 MG CHEWABLE TABLETS PO SCH (09:25)
[2017-02-19] MEDS: LEVOFLOXACIN 500 MG IVPB 100 ML IVPB SCH (09:26)
--- NOTE | 2017-02-19 09:28 | PN ---
Progress Note, Physician Chief Complaint: no distress TELE: rate controlled AF History of Present Illness: no CV complaints - Current Medication List Current Medications: Active Medications Albuterol/Ipratropium (Duoneb -) 1 amp NEB Q6H PRN PRN Reason: SHORTNESS OF BREATH Last Admin: 02/17/17 22:05 Dose: 1 amp Aspirin (Asa -) 81 mg PO DAILY [facility] Last Admin: 02/19/17 09:25 Dose: 81 mg Atorvastatin Calcium (Lipitor -) 40 mg PO HS [facility] Last Admin: 02/18/17 21:40 Dose: 40 mg Dabigatran (Pradaxa -) 150 mg PO BID [facility] Last Admin: 02/19/17 09:25 Dose: 150 mg Furosemide (Lasix Injection -) 20 mg IVPUSH DAILY [facility] Last Admin: 02/19/17 09:25 Dose: 20 mg Dextrose/Sodium Chloride (D5-1/2ns -) 1,000 mls @ 75 mls/hr IV ASDIR [facility] Last Admin: 02/19/17 01:12 Dose: 75 mls/hr Levofloxacin (Levaquin 500 Mg Premixed Ivpb -) 100 mls @ 100 mls/hr IVPB DAILY [facility] Last Admin: 02/19/17 09:26 Dose: 100 mls/hr Levothyroxine Sodium (Synthroid -) 25 mcg PO DAILY@0700 [facility] Last Admin: 02/19/17 06:12 Dose: 25 mcg Metoprolol Succinate (Toprol Xl -) 25 mg PO DAILY [facility] Last Admin: 02/19/17 09:25 Dose: 25 mg Ranolazine (Ranexa -) 500 mg PO BID [facility] Last Admin: 02/19/17 09:25 Dose: 500 mg Tamsulosin HCl (Flomax -) 0.4 mg PO DAILY@0830 [facility] Last Admin: 02/19/17 09:25 Dose: 0.4 mg - Objective Vital Signs: Vital Signs Temperature 97.8 F 02/19/17 08:49 Pulse Rate 80 02/19/17 08:49 Respiratory Rate 20 02/19/17 08:49 Blood Pressure 141/74 02/19/17 08:49 O2 Sat by Pulse Oximetry (%) 95 02/18/17 12:09 Constitutional: Yes: No Distress Cardiovascular: Yes: Pulse Irregular Respiratory: Yes: Other (slight decreased breath sounds at bases) Gastrointestinal: Yes: Soft Edema: No Labs: CBC, BMP 02/17/17 05:35 02/17/17 05:35 INR, PTT INR 1.40 (0.82-1.09) H 02/16/17 13:53 - ....Imaging Other: Image Reviewed Assessment/Plan 81 year old man h/o HTN, HLD, CAD s/p CABG 10/2011, JAVIER ligation, Afib on pradaxa, PPM, Moderate MR, severe TR, chronic diastolic CHF, mild pah, COPD, admitted for sob, hypoxia, PNA. Pt seen and examined today in nad. states he is feeling better. denies any chest pain. no edema. no palpitations, lightheadedness, dizziness, syncope, near syncope. no pnd, orthopnea. SOB-hypoxia, multifactorial, pna, copd, acute on chronic diastolic CHF, valvular heart disease -cont Abx - can switch to PO Lasix -monitor bun/creat -monitor and replete electrolytes as needed Atrial fibrillation-chronic, HR adequately controlled, h/o PPM -cont toprol and pradaxa CAD h/o cabg, stable -cont asa, statin, ranexa
[2017-02-19] MEDS: FUROSEMIDE 40 MG TABLET (FP) PO SCH (10:30)
--- NOTE | 2017-02-19 16:06 | PN ---
Progress Note (short form) - Note Progress Note: Resting in NAD. Feels better. Less SOB. No CP. Intake & Output 02/16/17 02/17/17 02/18/17 02/19/17 23:59 23:59 23:59 23:59 Intake Total 400 1525 1650 900 Output Total 1400 Balance 400 1525 250 900 Weight 174 lb Last Vital Signs Temp Pulse Resp BP Pulse Ox 98.6 F 80 20 119/62 97 02/19/17 15:13 02/19/17 15:13 02/19/17 15:13 02/19/17 15:13 02/19/17 09:00 Active Medications Albuterol/Ipratropium (Duoneb -) 1 amp NEB Q6H PRN PRN Reason: SHORTNESS OF BREATH Last Admin: 02/17/17 22:05 Dose: 1 amp Aspirin (Asa -) 81 mg PO DAILY [facility] Last Admin: 02/19/17 09:25 Dose: 81 mg Atorvastatin Calcium (Lipitor -) 40 mg PO HS [facility] Last Admin: 02/18/17 21:40 Dose: 40 mg Dabigatran (Pradaxa -) 150 mg PO BID [facility] Last Admin: 02/19/17 09:25 Dose: 150 mg Furosemide (Lasix -) 40 mg PO DAILY [facility] Dextrose/Sodium Chloride (D5-1/2ns -) 1,000 mls @ 75 mls/hr IV ASDIR [facility] Last Admin: 02/19/17 01:12 Dose: 75 mls/hr Levofloxacin (Levaquin 500 Mg Premixed Ivpb -) 100 mls @ 100 mls/hr IVPB DAILY [facility] Last Admin: 02/19/17 09:26 Dose: 100 mls/hr Levothyroxine Sodium (Synthroid -) 25 mcg PO DAILY@0700 [facility] Last Admin: 02/19/17 06:12 Dose: 25 mcg Metoprolol Succinate (Toprol Xl -) 25 mg PO DAILY [facility] Last Admin: 02/19/17 09:25 Dose: 25 mg Ranolazine (Ranexa -) 500 mg PO BID [facility] Last Admin: 02/19/17 09:25 Dose: 500 mg Tamsulosin HCl (Flomax -) 0.4 mg PO DAILY@0830 [facility] Last Admin: 02/19/17 09:25 Dose: 0.4 mg Constitutional: Yes: NAD Eyes: Yes: WNL HENT: Yes: WNL Neck: Yes: WNL Cardiovascular: Yes: Pulse Irregular, S1, S2 Respiratory: Yes: few basilar rhonchi Gastrointestinal: Yes: Normal Bowel Sounds, Soft Extremities: Yes: WNL Edema: No Labs: Problem List - Problems (1) Acute hypoxemic respiratory failure Code(s): J96.01 - ACUTE RESPIRATORY FAILURE WITH HYPOXIA (2) Hemoptysis Code(s): R04.2 - HEMOPTYSIS (3) Acute on chronic diastolic (congestive) heart failure Code(s): I50.33 - ACUTE ON CHRONIC DIASTOLIC (CONGESTIVE) HEART FAILURE (4) CAD (coronary artery disease) Code(s): I25.10 - ATHSCL HEART DISEASE OF [place] CORONARY ARTERY W/O ANG PCTRS (5) Chronic atrial fibrillation Code(s): I48.2 - CHRONIC ATRIAL FIBRILLATION (6) HLD (hyperlipidemia) Code(s): E78.5 - HYPERLIPIDEMIA, UNSPECIFIED (7) HTN (hypertension) Code(s): I10 - ESSENTIAL (PRIMARY) HYPERTENSION (8) Hx of CABG Code(s): Z95.1 - PRESENCE OF AORTOCORONARY BYPASS GRAFT (9) Hypoxemia Code(s): R09.02 - HYPOXEMIA (10) Mitral regurgitation Code(s): I34.0 - NONRHEUMATIC MITRAL (VALVE) INSUFFICIENCY (11) Pleural effusion Code(s): J90 - PLEURAL EFFUSION, NOT ELSEWHERE CLASSIFIED (12) Pneumonia Code(s): J18.9 - PNEUMONIA, UNSPECIFIED ORGANISM Qualifiers: Pneumonia type: due to unspecified organism Laterality: unspecified laterality Lung location: unspecified part of lung Qualified Code(s): J18.9 - Pneumonia, unspecified organism (13) Pulmonary HTN Code(s): I27.2 - OTHER SECONDARY PULMONARY HYPERTENSION (14) SOB (shortness of breath) Code(s): R06.02 - SHORTNESS OF BREATH (15) Elevated lactic acid level Code(s): R79.89 - OTHER SPECIFIED ABNORMAL FINDINGS OF BLOOD CHEMISTRY Assessment/Plan IMP ACUTE HYPOXEMIC RESPIRATORY FAILURE RUL PNEUMONIA HEMOPTYSIS SECONDARY TO PNEUMONIA CHF DECOMPENSATED PULMONARY HTN AFIB S/P PPM HTN HLD ELEVATED LACTATE LEVEL NORMAL PLAN ANTIBIOTICS INHALED BRONCHODILATORS NASAL O2 [facility] DR HERNANDEZ
[2017-02-19] MEDS: ATORVASTATIN CA 40 MG TABLET (FP) PO SCH (21:25)
--- NOTE | 2017-02-19 22:23 | PN ---
Progress Note, Physician History of Present Illness: No new complaints - Current Medication List Current Medications: Active Medications Albuterol/Ipratropium (Duoneb -) 1 amp NEB Q6H PRN PRN Reason: SHORTNESS OF BREATH Last Admin: 02/17/17 22:05 Dose: 1 amp Aspirin (Asa -) 81 mg PO DAILY [facility] Last Admin: 02/19/17 09:25 Dose: 81 mg Atorvastatin Calcium (Lipitor -) 40 mg PO HS [facility] Last Admin: 02/19/17 21:25 Dose: 40 mg Dabigatran (Pradaxa -) 150 mg PO BID [facility] Last Admin: 02/19/17 21:25 Dose: 150 mg Furosemide (Lasix -) 40 mg PO DAILY [facility] Last Admin: 02/19/17 10:30 Dose: 40 mg Dextrose/Sodium Chloride (D5-1/2ns -) 1,000 mls @ 75 mls/hr IV ASDIR [facility] Last Admin: 02/19/17 01:12 Dose: 75 mls/hr Levofloxacin (Levaquin 500 Mg Premixed Ivpb -) 100 mls @ 100 mls/hr IVPB DAILY [facility] Last Admin: 02/19/17 09:26 Dose: 100 mls/hr Levothyroxine Sodium (Synthroid -) 25 mcg PO DAILY@0700 [facility] Last Admin: 02/19/17 06:12 Dose: 25 mcg Metoprolol Succinate (Toprol Xl -) 25 mg PO DAILY [facility] Last Admin: 02/19/17 09:25 Dose: 25 mg Ranolazine (Ranexa -) 500 mg PO BID [facility] Last Admin: 02/19/17 21:25 Dose: 500 mg Tamsulosin HCl (Flomax -) 0.4 mg PO DAILY@0830 [facility] Last Admin: 02/19/17 09:25 Dose: 0.4 mg - Objective Vital Signs: Vital Signs Temperature 98.5 F 02/19/17 17:00 Pulse Rate 82 02/19/17 17:00 Respiratory Rate 20 02/19/17 17:00 Blood Pressure 126/65 02/19/17 17:00 O2 Sat by Pulse Oximetry (%) 97 02/19/17 09:00 Constitutional: Yes: Well Nourished Neck: Yes: Supple Cardiovascular: Yes: WNL, Pulse Irregular Respiratory: Yes: Rhonchi Gastrointestinal: Yes: WNL, Normal Bowel Sounds, Soft Labs: CBC, BMP 02/17/17 05:35 02/17/17 05:35 INR, PTT INR 1.40 (0.82-1.09) H 02/16/17 13:53 Problem List - Problems (1) Pneumonia Assessment/Plan: RUL pneumomia Cont IV levaquin/nebulizer O2 sat improved w/ NC Code(s): J18.9 - PNEUMONIA, UNSPECIFIED ORGANISM Qualifiers: Pneumonia type: due to unspecified organism Laterality: unspecified laterality Lung location: unspecified part of lung Qualified Code(s): J18.9 - Pneumonia, unspecified organism (2) Chronic atrial fibrillation Assessment/Plan: Cont pradaxa Rate controlled Code(s): I48.2 - CHRONIC ATRIAL FIBRILLATION (3) Pleural effusion Assessment/Plan: Due to pneumonia Code(s): J90 - PLEURAL EFFUSION, NOT ELSEWHERE CLASSIFIED (4) Acute hypoxemic respiratory failure Assessment/Plan: Improved Code(s): J96.01 - ACUTE RESPIRATORY FAILURE WITH HYPOXIA (5) CAD (coronary artery disease) Code(s): I25.10 - ATHSCL HEART DISEASE OF [place] CORONARY ARTERY W/O ANG PCTRS (6) HTN (hypertension) Assessment/Plan: BP stable Cont lasix/toprol Code(s): I10 - ESSENTIAL (PRIMARY) HYPERTENSION (7) HLD (hyperlipidemia) Assessment/Plan: Cont lipitor Code(s): E78.5 - HYPERLIPIDEMIA, UNSPECIFIED (8) BPH (benign prostatic hyperplasia) Assessment/Plan: Cont flomax Code(s): N40.0 - BENIGN PROSTATIC HYPERPLASIA WITHOUT LOWER URINRY TRACT SYMP
[2017-02-20] MEDS: LEVOTHYROXINE NA 25 MCG TABLET (FP) PO SCH (06:11)
[2017-02-20] MEDS: DABIGATRAN ETEXILATE MESYLATE 150 MG CAPSULE PO SCH ×2 (09:04→22:07)
[2017-02-20] MEDS: LEVOFLOXACIN 500 MG IVPB 100 ML IVPB SCH (09:04)
[2017-02-20] MEDS: RANOLAZINE E.R. 500 MG TABLET (FP) PO SCH ×2 (09:04→22:07)
[2017-02-20] MEDS: FUROSEMIDE 40 MG TABLET (FP) PO SCH ×3 (09:04→22:03)
[2017-02-20] MEDS: ASPIRIN 81 MG CHEWABLE TABLETS PO SCH (09:04)
[2017-02-20] MEDS: METOPROLOL SUCCINATE 25 MG TAB.SR.24H (FP) PO SCH (09:04)
[2017-02-20] MEDS: TAMSULOSIN HCL 0.4 MG CAP.ER.24H (FP) PO SCH (09:04)
--- NOTE | 2017-02-20 09:25 | PN ---
Progress Note, Physician History of Present Illness: seen and examined today in nad. no overnight events. no new complaints. feeling better. - Current Medication List Current Medications: Active Medications Albuterol/Ipratropium (Duoneb -) 1 amp NEB Q6H PRN PRN Reason: SHORTNESS OF BREATH Last Admin: 02/17/17 22:05 Dose: 1 amp Aspirin (Asa -) 81 mg PO DAILY [facility] Last Admin: 02/20/17 09:04 Dose: 81 mg Atorvastatin Calcium (Lipitor -) 40 mg PO HS [facility] Last Admin: 02/19/17 21:25 Dose: 40 mg Dabigatran (Pradaxa -) 150 mg PO BID [facility] Last Admin: 02/20/17 09:04 Dose: 150 mg Furosemide (Lasix -) 40 mg PO DAILY [facility] Last Admin: 02/20/17 09:04 Dose: 40 mg Levofloxacin (Levaquin 500 Mg Premixed Ivpb -) 100 mls @ 100 mls/hr IVPB DAILY [facility] Last Admin: 02/20/17 09:04 Dose: 100 mls/hr Levothyroxine Sodium (Synthroid -) 25 mcg PO DAILY@0700 [facility] Last Admin: 02/20/17 06:11 Dose: 25 mcg Metoprolol Succinate (Toprol Xl -) 25 mg PO DAILY [facility] Last Admin: 02/20/17 09:04 Dose: 25 mg Ranolazine (Ranexa -) 500 mg PO BID [facility] Last Admin: 02/20/17 09:04 Dose: 500 mg Tamsulosin HCl (Flomax -) 0.4 mg PO DAILY@0830 [facility] Last Admin: 02/20/17 09:04 Dose: 0.4 mg - Objective Vital Signs: Vital Signs Temperature 97.9 F 02/20/17 09:10 Pulse Rate 79 02/20/17 09:10 Respiratory Rate 20 02/20/17 09:10 Blood Pressure 131/73 02/20/17 09:10 O2 Sat by Pulse Oximetry (%) 95 02/20/17 08:31 Constitutional: Yes: Well Nourished, No Distress, Calm Eyes: Yes: WNL, Conjunctiva Clear, EOM Intact, PERRL HENT: Yes: WNL, Atraumatic, Normocephalic Neck: Yes: WNL, Supple, Trachea Midline Cardiovascular: Yes: Pulse Irregular, S1, S2. No: Regular Rate and Rhythm, Bradycardia, Tachycardia, Bruit, JVD, Gallop, Murmur, Rub, S3, S4, Varicosities Respiratory: Yes: Regular, Diminished, Rales, Rhonchi. No: SOB, Wheezes Gastrointestinal: Yes: WNL, Normal Bowel Sounds, Soft. No: Distention, Tenderness Musculoskeletal: Yes: WNL Extremities: Yes: WNL Edema: No Peripheral Pulses WNL: Yes Peripheral Pulses: Left Doralis Pedis: 2+, Right Dorsalis Pedis: 2+ Integumentary: Yes: WNL Neurological: Yes: Alert, Oriented Psychiatric: Yes: Alert, Oriented Labs: CBC, BMP 02/17/17 05:35 02/17/17 05:35 INR, PTT INR 1.40 (0.82-1.09) H 02/16/17 13:53 - ....Imaging Chest X-ray: Report Reviewed, Image Reviewed EKG: Report Reviewed, Image Reviewed Other: Report Reviewed, Image Reviewed (tele-Afib, HR controlled, PVCs, intermittent Vpaced) Problem List - Problems (1) Pleural effusion Code(s): J90 - PLEURAL EFFUSION, NOT ELSEWHERE CLASSIFIED (2) Pneumonia Code(s): J18.9 - PNEUMONIA, UNSPECIFIED ORGANISM Qualifiers: Pneumonia type: due to unspecified organism Laterality: unspecified laterality Lung location: unspecified part of lung Qualified Code(s): J18.9 - Pneumonia, unspecified organism (3) SOB (shortness of breath) Code(s): R06.02 - SHORTNESS OF BREATH (4) Hypoxemia Code(s): R09.02 - HYPOXEMIA (5) CAD (coronary artery disease) Code(s): I25.10 - ATHSCL HEART DISEASE OF [place] CORONARY ARTERY W/O ANG PCTRS (6) Hx of CABG Code(s): Z95.1 - PRESENCE OF AORTOCORONARY BYPASS GRAFT (7) Chronic atrial fibrillation Code(s): I48.2 - CHRONIC ATRIAL FIBRILLATION (8) HTN (hypertension) Code(s): I10 - ESSENTIAL (PRIMARY) HYPERTENSION (9) HLD (hyperlipidemia) Code(s): E78.5 - HYPERLIPIDEMIA, UNSPECIFIED (10) Pulmonary HTN Code(s): I27.2 - OTHER SECONDARY PULMONARY HYPERTENSION (11) Mitral regurgitation Code(s): I34.0 - NONRHEUMATIC MITRAL (VALVE) INSUFFICIENCY (12) Acute on chronic diastolic (congestive) heart failure Code(s): I50.33 - ACUTE ON CHRONIC DIASTOLIC (CONGESTIVE) HEART FAILURE Assessment/Plan 81 year old man h/o HTN, HLD, CAD s/p CABG 10/2011, JAVIER ligation, Afib on pradaxa, PPM, Moderate MR, severe TR, chronic diastolic CHF, mild pah, COPD, admitted for sob, hypoxia, PNA. Pt seen and examined today in nad. states he is feeling better. denies any chest pain. no edema. no palpitations, lightheadedness, dizziness, syncope, near syncope. no pnd, orthopnea. SOB-hypoxia, multifactorial, pna, copd, acute on chronic diastolic CHF, valvular heart disease -overall improved, still has rhonchi and some rales on exam -can increase po Lasix to 40mg po bid -check Cxr today -cont Abx as per PMD and ID -monitor bun/creat, consider repeating labs before discharge, last labs 02/17 -monitor and replete electrolytes as needed -Ok to dc tele Atrial fibrillation-chronic, HR adequately controlled, h/o PPM -cont toprol and pradaxa -ok to dc tele CAD h/o cabg, stable -cont asa, statin, ranexa
[2017-02-20 10:22] LABS: MCH 27.4 pg (25.7-33.7); MCHC 32.6 g/dl (32.0-35.9); MEAN CELL VOLUME 84.2 fl (80-96); PLATELET COUNT 216 K/MM3 (134-434); RDW 14.9 % (11.9-15.9); WHITE BLOOD COUNT 6.7 K/mm3 (4.0-10.0)
[2017-02-20 10:49] LABS: ALBUMIN 2.8 g/dl (3.4-5.0); ANION GAP 11 (8-16); BILIRUBIN,TOTAL 0.6 mg/dL (0.2-1.0); CALCIUM 8.1 mg/dL (8.5-10.1); CO2 30 mmol/L (21-32); COCKROFT - GAULT 69.42; CREATININE 0.9 mg/dL (0.7-1.3); GLUCOSE,RANDOM 154 mg/dL (74-106); MAGNESIUM 2.1 mg/dL (1.8-2.4); SGOT/AST 19 U/L (15-37); SGPT/ALT 43 U/L (12-78)
[2017-02-20 10:50] LABS: ALK PHOS 99 U/L (45-117); TOT PROT 5.7 g/dl (6.4-8.2)
[2017-02-20 11:23] LABS: PLATELET ESTIMATE ADEQUATE (NORMAL)
--- NOTE | 2017-02-20 14:18 | PN ---
Progress Note (short form) - Note Progress Note: PULMONARY VSS/AFEBRILE RESTING COMFORTABLY IN BED FAMILY PRESENT INQUIRING ABOUT DISCHARGE ANICTERIC DISTANT BREATH SOUNDS DECREASED LEFT BASE S1S2 BS+ SOFT NO EDEMA LABS/MEDS/NOTES/IMAGING REVIEWED IMP ACUTE HYPOXEMIC RESPIRATORY FAILURE RUL PNEUMONIA HEMOPTYSIS SECONDARY TO PNEUMONIA CHF DECOMPENSATED PULMONARY HTN AFIB S/P PPM HTN HLD ELEVATED LACTATE LEVEL NORMAL PLAN ANTIBIOTICS INHALED BRONCHODILATORS NASAL O2 LASIX WILL FOLLOW Ralph POE MD
[2017-02-20] MEDS: POTASSIUM CHLORIDE ORAL LIQUID 20 MEQ/15 ML PO SCH ×2 (15:23→22:52)
[2017-02-20] MEDS: ATORVASTATIN CA 40 MG TABLET (FP) PO SCH (22:07)
[2017-02-20] MEDS: ALBUTEROL SO4 2.5/IPRATROPIUM 0.5 INH SOL 3 ML VIAL.NEB. NEB PRN (22:15)
--- NOTE | 2017-02-20 22:21 | PN ---
Progress Note, Physician - Current Medication List Current Medications: Active Medications Albuterol/Ipratropium (Duoneb -) 1 amp NEB Q6H PRN PRN Reason: SHORTNESS OF BREATH Last Admin: 02/17/17 22:05 Dose: 1 amp Aspirin (Asa -) 81 mg PO DAILY [facility] Last Admin: 02/20/17 09:04 Dose: 81 mg Atorvastatin Calcium (Lipitor -) 40 mg PO HS [facility] Last Admin: 02/20/17 22:07 Dose: 40 mg Dabigatran (Pradaxa -) 150 mg PO BID [facility] Last Admin: 02/20/17 22:07 Dose: 150 mg Furosemide (Lasix -) 40 mg PO BIDLASIX [facility] Levofloxacin (Levaquin 500 Mg Premixed Ivpb -) 100 mls @ 100 mls/hr IVPB DAILY [facility] Last Admin: 02/20/17 09:04 Dose: 100 mls/hr Levothyroxine Sodium (Synthroid -) 25 mcg PO DAILY@0700 [facility] Last Admin: 02/20/17 06:11 Dose: 25 mcg Metoprolol Succinate (Toprol Xl -) 25 mg PO DAILY [facility] Last Admin: 02/20/17 09:04 Dose: 25 mg Ranolazine (Ranexa -) 500 mg PO BID [facility] Last Admin: 02/20/17 22:07 Dose: 500 mg Tamsulosin HCl (Flomax -) 0.4 mg PO DAILY@0830 [facility] Last Admin: 02/20/17 09:04 Dose: 0.4 mg - Objective Vital Signs: Vital Signs Temperature 98.0 F 02/20/17 17:00 Pulse Rate 65 02/20/17 17:00 Respiratory Rate 20 02/20/17 20:42 Blood Pressure 108/57 02/20/17 17:00 O2 Sat by Pulse Oximetry (%) 97 02/20/17 20:42 Labs: CBC, BMP 02/20/17 10:04 02/20/17 10:04 INR, PTT INR 1.40 (0.82-1.09) H 02/16/17 13:53 Problem List - Problems (1) Pneumonia Code(s): J18.9 - PNEUMONIA, UNSPECIFIED ORGANISM Qualifiers: Pneumonia type: due to unspecified organism Laterality: unspecified laterality Lung location: unspecified part of lung Qualified Code(s): J18.9 - Pneumonia, unspecified organism (2) Chronic atrial fibrillation Code(s): I48.2 - CHRONIC ATRIAL FIBRILLATION (3) Pleural effusion Code(s): J90 - PLEURAL EFFUSION, NOT ELSEWHERE CLASSIFIED (4) Acute hypoxemic respiratory failure Code(s): J96.01 - ACUTE RESPIRATORY FAILURE WITH HYPOXIA (5) CAD (coronary artery disease) Code(s): I25.10 - ATHSCL HEART DISEASE OF [place] CORONARY ARTERY W/O ANG PCTRS (6) HTN (hypertension) Code(s): I10 - ESSENTIAL (PRIMARY) HYPERTENSION (7) HLD (hyperlipidemia) Code(s): E78.5 - HYPERLIPIDEMIA, UNSPECIFIED (8) BPH (benign prostatic hyperplasia) Code(s): N40.0 - BENIGN PROSTATIC HYPERPLASIA WITHOUT LOWER URINRY TRACT SYMP
[2017-02-21] MEDS: LEVOTHYROXINE NA 25 MCG TABLET (FP) PO SCH (06:12)
[2017-02-21] MEDS: FUROSEMIDE 40 MG TABLET (FP) PO SCH ×2 (06:12→14:05)
[2017-02-21] MEDS: ASPIRIN 81 MG CHEWABLE TABLETS PO SCH (09:22)
[2017-02-21] MEDS: LEVOFLOXACIN 500 MG IVPB 100 ML IVPB SCH (09:22)
[2017-02-21] MEDS: TAMSULOSIN HCL 0.4 MG CAP.ER.24H (FP) PO SCH (09:22)
[2017-02-21] MEDS: RANOLAZINE E.R. 500 MG TABLET (FP) PO SCH (09:23)
[2017-02-21] MEDS: DABIGATRAN ETEXILATE MESYLATE 150 MG CAPSULE PO SCH (09:23)
--- NOTE | 2017-02-21 10:31 | PN ---
Progress Note (short form) - Note Progress Note: PULMONARY VSS/AFEBRILE OOB TO CHEST WANTS TO GO HOME ANICTERIC DISTANT BREATH SOUNDS DECREASED LEFT BASE S1S2 BS+ SOFT NO EDEMA LABS/MEDS/NOTES/IMAGING REVIEWED IMP ACUTE HYPOXEMIC RESPIRATORY FAILURE PNEUMONIA CHF DECOMPENSATED PULMONARY HTN AFIB S/P PPM HTN HLD PLAN ANTIBIOTICS DAY #6 INHALED BRONCHODILATORS NASAL O2 LASIX WILL FOLLOW Ralph POE MD
[2017-02-21] MEDS: METOPROLOL SUCCINATE 25 MG TAB.SR.24H (FP) PO SCH (10:58)
[2017-02-21 12:56] VITALS: BP 111/69; PULSE 75; TEMP 98.4
--- NOTE | 2017-02-21 14:22 | PN ---
Progress Note, Physician Chief Complaint: Pt sitting up at bedside; no chest pain or dyspnea. at beside. History of Present Illness: Pt is a 81 y/o male (b. [place]) w/ PMH significant for HTN, afib, PPM, hypothyroidism and BPH. Pt presented to his PMD w/ a productive cough w/ dark sputum and dyspnea. He was also found to be in rapid afib w/ heart rate of >110. Pt denies any chest pain. A CXR done in the office showed consolidation. Pt is slightly tremulous and feeling weak w/ poor appetite. In the ER pt found to have heart rate of 90's and O2 sat of 90. History Source: Patient - Current Medication List Current Medications: Active Medications Albuterol/Ipratropium (Duoneb -) 1 amp NEB Q6H PRN PRN Reason: SHORTNESS OF BREATH Last Admin: 02/20/17 22:15 Dose: 1 amp Aspirin (Asa -) 81 mg PO DAILY [facility] Last Admin: 02/21/17 09:22 Dose: 81 mg Atorvastatin Calcium (Lipitor -) 40 mg PO HS [facility] Last Admin: 02/20/17 22:07 Dose: 40 mg Dabigatran (Pradaxa -) 150 mg PO BID [facility] Last Admin: 02/21/17 09:23 Dose: 150 mg Furosemide (Lasix -) 40 mg PO BIDLASIX [facility] Last Admin: 02/21/17 14:05 Dose: 40 mg Levofloxacin (Levaquin 500 Mg Premixed Ivpb -) 100 mls @ 100 mls/hr IVPB DAILY [facility] Last Admin: 02/21/17 09:22 Dose: 100 mls/hr Levothyroxine Sodium (Synthroid -) 25 mcg PO DAILY@0700 [facility] Last Admin: 02/21/17 06:12 Dose: 25 mcg Metoprolol Succinate (Toprol Xl -) 25 mg PO DAILY [facility] Last Admin: 02/21/17 10:58 Dose: 25 mg Ranolazine (Ranexa -) 500 mg PO BID [facility] Last Admin: 02/21/17 09:23 Dose: 500 mg Tamsulosin HCl (Flomax -) 0.4 mg PO DAILY@0830 [facility] Last Admin: 02/21/17 09:22 Dose: 0.4 mg - Objective Vital Signs: Vital Signs Temperature 98.4 F 02/21/17 11:00 Pulse Rate 75 02/21/17 11:00 Respiratory Rate 20 02/21/17 11:00 Blood Pressure 111/69 02/21/17 11:00 O2 Sat by Pulse Oximetry (%) 98 02/21/17 10:00 Constitutional: Yes: No Distress Eyes: Yes: WNL HENT: Yes: WNL, Tonsillar Exudate Cardiovascular: Yes: WNL Respiratory: Yes: Diminished Gastrointestinal: Yes: Soft ...Rectal Exam: Yes: Deferred Genitourinary: No: Anuria Breast(s): Yes: WNL Musculoskeletal: Yes: Muscle Weakness Extremities: Yes: WNL Edema: No Peripheral Pulses WNL: Yes Integumentary: Yes: WNL Neurological: Yes: WNL Psychiatric: Yes: WNL Labs: CBC, BMP 02/20/17 10:04 02/20/17 10:04 INR, PTT INR 1.40 (0.82-1.09) H 02/16/17 13:53 Problem List - Problems (1) Acute hypoxemic respiratory failure Assessment/Plan: CXR: improved right effusion; +Left effusion. Code(s): J96.01 - ACUTE RESPIRATORY FAILURE WITH HYPOXIA (2) Acute on chronic diastolic (congestive) heart failure Code(s): I50.33 - ACUTE ON CHRONIC DIASTOLIC (CONGESTIVE) HEART FAILURE (3) BPH (benign prostatic hyperplasia) Code(s): N40.0 - BENIGN PROSTATIC HYPERPLASIA WITHOUT LOWER URINRY TRACT SYMP (4) CAD (coronary artery disease) Code(s): I25.10 - ATHSCL HEART DISEASE OF [place] CORONARY ARTERY W/O ANG PCTRS (5) Chronic atrial fibrillation Assessment/Plan: On Metoprolol for HR control. On Pradxa. Replete K+; f/u BUN/Cr, electrolytes, especially while on furosemide. Code(s): I48.2 - CHRONIC ATRIAL FIBRILLATION (6) HLD (hyperlipidemia) Code(s): E78.5 - HYPERLIPIDEMIA, UNSPECIFIED (7) HTN (hypertension) Code(s): I10 - ESSENTIAL (PRIMARY) HYPERTENSION (8) Hx of CABG Code(s): Z95.1 - PRESENCE OF AORTOCORONARY BYPASS GRAFT (9) SOB (shortness of breath) Code(s): R06.02 - SHORTNESS OF BREATH (10) Hypothyroid Assessment/Plan: TSH WNL; on synthroid. Code(s): E03.9 - HYPOTHYROIDISM, UNSPECIFIED
== END 2017-02-21 15:00 | disposition home or self-care (01) | DRG 291 ==
LOC: JER 12:54 → JERBED 15:41 → J4W 17:46
PROVIDERS: ADMIT Internal Medicine; ATTEND Internal Medicine
DX: I11.0 Hypertensive heart disease with heart failure (principal); J18.9 Pneumonia, unspecified organism; J96.01 Acute respiratory failure with hypoxia; I50.33 Acute on chronic diastolic (congestive) heart failure; E03.9 Hypothyroidism, unspecified; I48.91 Unspecified atrial fibrillation; Z95.0 Presence of cardiac pacemaker; N40.0 Benign prostatic hyperplasia without lower urinary tract symptoms; I25.10 Atherosclerotic heart disease of native coronary artery without angina pectoris; Z95.1 Presence of aortocoronary bypass graft; Z79.01 Long term (current) use of anticoagulants; I48.2 Chronic atrial fibrillation; E78.5 Hyperlipidemia, unspecified; I27.2 Other secondary pulmonary hypertension; I34.0 Nonrheumatic mitral (valve) insufficiency; Z87.891 Personal history of nicotine dependence
CPT/HCPCS: 36415; 71010-TC; 71250-TC; 80053; 81003; 82550; 82803; 83605; 83735; 84443; 84484; 85025; 85610; 85730; 86850; 86900; 86901; 87040; 87070; 87086; 87205; 93005; 93010; 93306-TC; 94640; 97116-GP; 97161-GP; 99283-25

== ENCOUNTER 2018-03-17 15:04 | Inpatient (IN) | payer MEDICARE, OTHER ==
--- NOTE | 2018-03-17 15:15 | PDOC ---
Rapid Medical Evaluation Time Seen by Provider: 03/17/18 15:15 Medical Evaluation: Allergies Allergy/AdvReac Type Severity Reaction Status Date / Time Penicillins Allergy Verified 02/16/17 13:24 03/17/18 15:15 82 year old male with HTN, Afib s/p PPM on Pradaxa, HTN, HLD, CAD s/p CABG 2010, moderate MR, chronic diastolic CHF, mild PAH referred by PCP after outside CT Chest demonstrated cardiomegaly, pulm vasc congestion, and loculated right-sided pleural effusion (report with family). Patient reports dyspnea and pain with deep breathing. No fevers. Alert, oriented, no distress. Irregular rhythm, S1/S2, Breath sounds present and equal bilaterally. No LE edema. Plan: -EKG -Labs including CBC, CMP, PT/INR, T&S, BNP, blood cultures -To Main ED for further evaluation, likely pulm consult
[2018-03-17 15:53] LABS: HEMATOCRIT 36.2 % (35.4-49); HEMOGLOBIN 11.8 GM/dL (11.7-16.9); MCH 27.4 pg (25.7-33.7); MCHC 32.5 g/dl (32.0-35.9); MEAN CELL VOLUME 84.1 fl (80-96); MEAN PLT VOLUME 8.4 fl (7.5-11.1); PLATELET COUNT 176 K/MM3 (134-434); RDW 16.1 % (11.9-15.9); WHITE BLOOD COUNT 5.6 K/mm3 (4.0-10.0)
--- NOTE | 2018-03-17 16:11 | PDOC ---
History of Present Illness - General Chief Complaint: Respiratory Stated Complaint: ABD PAIN Time Seen by Provider: 03/17/18 15:15 - History of Present Illness Initial Comments: 03/17/18 16:48 The patient is an 82 year old male with a history of HTN, Afib s/p PPM on Pradaxa, HTN, HLD, CAD s/p CABG 10/2011, moderate MR, chronic diastolic CHF who presents for evaluation of shortness of breath. The patient is accompanied by family who assist in providing the history. They report that the patient has been having worsening difficulty breathing and SOB. The patient had a ct chest on an outpatient basis which demonstrated a right sided loculated pleural effusion and the patient's primary care provider Dr. Cox sent that patient in for admission. The patient had a similar presentation 1 year ago with a similar loculated pleural effusion. The patient is also complaining of worsening lower extremity swelling over the past week in addition to his worsening SOB. The patient otherwise denies fevers, chills, chest pain, nausea , vomiting, abdominal pain, or changes with urination or bowel movements. Past History - Past Medical History Allergies/Adverse Reactions: Allergies Allergy/AdvReac Type Severity Reaction Status Date / Time Penicillins Allergy Verified 03/17/18 15:20 Home Medications: Ambulatory Orders Aspirin [ASA -] 81 mg PO DAILY 02/16/17 Atorvastatin Ca [Lipitor] 40 mg PO HS 02/16/17 Dabigatran Etexilate Mesylate [Pradaxa -] 150 mg PO BID 02/16/17 Levothyroxine [Synthroid -] 25 mcg PO DAILY 02/16/17 Tamsulosin HCl [Flomax -] 0.4 mg PO DAILY 02/16/17 Furosemide [Lasix -] 40 mg PO BIDLASIX tablet 02/21/17 Levofloxacin [Levaquin] 500 mg PO DAILY #30 tablet 02/21/17 Cardiac Disorders: Yes (AFIB) COPD: No HTN: Yes Hypercholesterolemia: Yes Thyroid Disease: Yes - Surgical History Cardiac Surgery: Yes (5yrs cardiac bipass) - Suicide/Smoking/Psychosocial Hx Smoking History: Never smoked Hx Alcohol Use: No Drug/Substance Use Hx: No Substance Use Type: None Review of Systems - Review of Systems Comments:: 03/17/18 16:59 Constitutional: No fevers, chills, fatigue, malaise HEENT: No Rhinorrhea, nasal congestion, visual changes Cardiovascular: No chest pain, syncope, palpitations, lightheadedness Respiratory: SOB. No Cough, Hemoptysis, Gastrointestinal: No Abdominal pain, Nausea, Vomiting, Constipation, Diarrhea, Melena Genitourinary: No Dysuria, Frequency, Urgency, Hesitancy, Hematuria, Flank pain Musculoskeletal: Lower Extremity Swelling. No Myalgia, arthralgia Skin: No rashes, itching, bruising, pallor Neurologic: No Headache, Dizziness, Numbness, Weakness, or Tingling Psychiatric: No Hallucinations. No SI or HI *Physical Exam - Vital Signs Last Vital Signs Temp Pulse Resp BP Pulse Ox 98.6 F 90 24 120/68 97 03/17/18 15:15 03/17/18 15:15 03/17/18 15:15 03/17/18 15:15 03/17/18 15:15 - Physical Exam Comments: 03/17/18 16:59 General Appearance: Nourished. No Apparent Distress HEENT: EOMI, [place]. No Pharyngeal Erythema, Tonsillar Exudate, Tonsillar Erythema Neck: No Cervical Lymphadenopathy Respiratory/Chest: Diminished breath sounds at the bases bilaterally worse on the right with some notable rales on exam. No Rhonchi, Wheezing Cardiovascular: Irregularly Irregular Rhythm, Regular Rate. No Murmur, Gallops, Rubs Gastrointestinal/Abdominal: Normal Bowel Sounds, Soft. No Guarding, Rebound, Tenderness Musculoskeletal: No CVA Tenderness Extremity: 2+ pitting edema in the lower extremities bilaterally. Normal Capillary Refill Integumentary: Normal Color, Dry, Warm Heart Score/ECG Review #1 ECG reviewed & interpreted by me at: 18:28 (Atrial Fibrillation) General ECG Interpretation: Normal Rate, Normal Intervals, No acute ischemic changes ED Treatment Course - LABORATORY CBC & Chemistry Diagram: 03/17/18 15:46 03/17/18 15:46 - ADDITIONAL ORDERS Additional order review: 03/17/18 15:46 RBC 4.30 MCV 84.1 MCHC 32.5 RDW 16.1 H MPV 8.4 Neutrophils % No Result Required. Lymphocytes % No Result Required. Medical Decision Making - Medical Decision Making 03/17/18 17:01 The patient is an 82 year old male with a history of HTN, Afib s/p PPM on Pradaxa, HTN, HLD, CAD s/p CABG 10/2011, moderate MR, chronic diastolic CHF who presents for evaluation of shortness of breath. Differential includes but is not limited to: CHF exacerbation, Pleural Effusion, Pneumonia, Infectious, Metabolic derangement. Given the patient's history and physical exam, it is possible his symptoms are due to a CHF exacerbation with pleural effusion. We will obtain a cbc, cmp, troponin, bnp, coags, ekg, chest plain film to evaluate further. We will treat with lasix here in the ED and continue to monitor and reassess. 03/17/18 17:47 CBC, cmp, are unremarkable. BNP is elevated to 1500. Chest plain film demonstrates pleural effusion as well as fluid in the right middle fissure as read by our radiologist. We discussed the case with Dr. Spears who accepted the patient for admission. *DC/Admit/Observation/Transfer Diagnosis at time of Disposition: Acute on chronic diastolic (congestive) heart failure, Pleural effusion - Discharge Dispostion Condition at time of disposition: Stable Admit: Yes - Referrals - Patient Instructions - Post Discharge Activity
[2018-03-17 16:15] LABS: INR 1.39 (0.82-1.09); PROTHROMBIN TIME (PATIENT) 15.7 SEC (9.7-13.0)
--- NOTE | 2018-03-17 16:54 | PDOC ---
Attending Attestation - HPI HPI: 03/17/18 17:10 The patient is a 82 year old male with past medical history of Afib s/p PPM on Pradaxa, HTN, CAD s/p CABG 10/2011, Chronic diastolic CHF, moderate MR presents to the emergency department with SOB. As per the family members, the patients breathings been progressively worsening. The patient was sent in by his PCP Dr. Cox after an outpatient CT chest read right sided loculated pleural effusion. <Marie Sousa - Last Filed: 03/17/18 17:10> - Resident Resident Name: Nikolas Garcia - ED Attending Attestation I have performed the following: I have examined & evaluated the patient, The case was reviewed & discussed with the resident, I agree w/resident's findings & plan, Exceptions are as noted - Physicial Exam PE: 03/17/18 18:07 Patient is awake and alert, frail-appearing, afebrile, in no distress Normocephalic, atraumatic EOMI, conjunctiva are pink No JVD Decreased breath sounds bilaterally at the bases mild hepatomegaly without hepatojugular reflux +2 pitting edema bilaterally Fine resting tremor is noted bilaterally with some cogwheel rigidity on evaluation of upper and lower extremities consistent with parkinsonism. - Medical Decision Making 03/17/18 18:09 Patient is a frail-appearing 82-year-old male with multiple comorbidities who presents with worsening shortness of breath with bilateral pleural effusions ( some loculated) requiring IV diuresis. In the ER, patient is nontoxic appearing , hemodynamically stable. ekh reveals reate controled afib. pt is on pradaxa. First set of cardiac enzymes within normal limit. We'll administer IV Lasix. Will admit further diuresis. <Tonny Matos - Last Filed: 03/17/18 18:29>
[2018-03-17 17:13] LABS: ALBUMIN 3.2 g/dl (3.4-5.0); ANION GAP 4 (8-16); BILIRUBIN,TOTAL 0.7 mg/dL (0.2-1.0); BLOOD UREA NITROGEN 10 mg/dL (7-18); CHLORIDE 109 mmol/L (98-107); CO2 30 mmol/L (21-32); CREATININE 1.1 mg/dL (0.7-1.3); GLUCOSE,RANDOM 159 mg/dL (74-106); POTASSIUM 3.8 mmol/L (3.5-5.1); SGOT/AST 14 U/L (15-37); SGPT/ALT 20 U/L (12-78); SODIUM 143 mmol/L (136-145); TOT PROT 6.3 g/dl (6.4-8.2)
[2018-03-17 17:16] LABS: ALK PHOS 99 U/L (45-117); N-TERMINAL BNP 1535.75 pg/ml (5-450)
[2018-03-17] MEDS ORDERED: FUROSEMIDE 40 MG/4 ML INJECTABLE VIAL IVPUSH ONE (17:18)
[2018-03-17] MEDS ORDERED: FUROSEMIDE 40 MG/4 ML INJECTABLE VIAL ONE (17:55)
[2018-03-17 19:03] VITALS: BMI 24.4
[2018-03-17] MEDS ORDERED: ACETAMINOPHEN INJECTION 100 ML IVPB ONE (20:00)
[2018-03-17 21:48] LABS: PLATELET ESTIMATE ADEQUATE
[2018-03-18] MEDS ORDERED: PT OWN MED DRAWER 7, Y5N ONE ×2 (00:57→21:03)
[2018-03-18] MEDS ORDERED: ALBUTEROL SO4 2.5/IPRATROPIUM 0.5 INH SOL 3 ML VIAL.NEB. NEB PRN (03:31)
[2018-03-18] MEDS: LEVOTHYROXINE NA 25 MCG TABLET (FP) PO SCH (06:16)
[2018-03-18 07:54] LABS: BASO % 0.6 % (0-2.0); EOS % 2.7 % (0-4.5); HEMATOCRIT 34.6 % (35.4-49); HEMOGLOBIN 11.4 GM/dL (11.7-16.9); LYMPH % 26.8 % (8-40); MCH 27.5 pg (25.7-33.7); MEAN CELL VOLUME 83.4 fl (80-96); MEAN PLT VOLUME 8.6 fl (7.5-11.1); MONO % 14.8 % (3.8-10.2); NEUT % 55.1 % (42.8-82.8); PLATELET COUNT 174 K/MM3 (134-434); RBC 4.15 M/mm3 (4.00-5.60); RDW 15.7 % (11.9-15.9); WHITE BLOOD COUNT 6.3 K/mm3 (4.0-10.0)
[2018-03-18] MEDS: TAMSULOSIN HCL 0.4 MG CAP.ER.24H (FP) PO SCH (08:38)
[2018-03-18 08:57] LABS: ALBUMIN 3.2 g/dl (3.4-5.0); ANION GAP 7 (8-16); BLOOD UREA NITROGEN 10 mg/dL (7-18); CALCIUM 7.9 mg/dL (8.5-10.1); CHLORIDE 106 mmol/L (98-107); CO2 30 mmol/L (21-32); GLUCOSE,RANDOM 114 mg/dL (74-106); POTASSIUM 3.2 mmol/L (3.5-5.1); SODIUM 143 mmol/L (136-145)
[2018-03-18 09:02] LABS: ALK PHOS 88 U/L (45-117); BILIRUBIN,TOTAL 0.7 mg/dL (0.2-1.0); CREATININE 0.9 mg/dL (0.7-1.3); SGOT/AST 14 U/L (15-37); SGPT/ALT 20 U/L (12-78)
--- NOTE | 2018-03-18 09:16 | CON.CARD ---
Cardiology Consult (text) - Consultation Consultation Note: IMP: Large right pleural effusion Mild volume overload, chronic diastolic CHF CAD s/p CABG AF s/p PPM Moderate MR Parkinson's Disease ?h/o of Leukemia? REC: 1. IV Lasix 2. Hold Pradaxa if thoracentesis planned. 3. Pulmonary consult 4. Will review records to clarify h/o ?blood malignancy
--- NOTE | 2018-03-18 09:36 | CONS ---
CARDIOLOGY CONSULTATION DATE OF CONSULTATION: DATE OF DICTATION: 03/18/2018 REQUESTING PHYSICIAN: Jolly Spears MD REASON FOR CONSULTATION: Pleural effusion. The patient is an 82-year-old male with coronary artery disease status post 2-vessel CABG in 2010, atrial fibrillation status post pacemaker with left atrial resection, hypertension, COPD, Parkinson disease, moderate mitral regurgitation, and I believe, a prior history of hematologic malignancy several years ago. The details of that need to be reviewed in the medical record. He is now admitted from his PMD's office for worsening shortness of breath and loculated right pleural effusion noted on CT scan of the chest. The patient reports increasing dyspnea and pain with deep breathing. Denies fever or chills. He denies chest pain other than pleuritic-natured pain described above. No palpitations or syncope. He has had increased dyspnea on exertion as well as increasing lower extremity edema. ALLERGIES: He is allergic to PENICILLIN. HOME MEDICATIONS: Include Flomax 0.4 mg daily for BPH, Synthroid 25 mcg daily, Levaquin 500 p.o. daily, Lasix 40 mg p.o. b.i.d., Pradaxa 150 mg b.i.d., atorvastatin 40 nightly, and aspirin 81 mg daily. Here in hospital, his Lasix has been changed to 40 mg IV daily. FAMILY HISTORY: Noncontributory. SOCIAL HISTORY: Denies smoking. PHYSICAL EXAMINATION: General: He is in no distress. Vital Signs: With a low-grade temperature of 99.3, pulse 79, blood pressure 126/73. Weight 175 pounds. Oxygen saturation 98 on room air. Neck: No JVD. No bruit. Heart: S1, S2 regular. There is a median sternotomy scar. Chest: Scattered rhonchi with decreased breath sounds on the right base. Abdomen: Soft. Extremities: With1+ edema. Chest x-ray was reviewed and shows a pacemaker with a predominantly unilateral right-sided effusion. EKG is currently not in the chart to review. LABORATORY DATA: White count 6.3, hematocrit 34.6, platelet count 174. INR 1.39. Sodium 143, potassium 3.2, creatinine 0.9. LFTs are normal. BNP is 1535. IMPRESSION: 1. History of coronary disease status post coronary artery bypass graft. 2. Atrial fibrillation status post pacemaker. 3. Parkinson disease. 4. Pleural effusion, predominantly right sided, with evidence of mild volume overload. RECOMMENDATIONS: 1. Continue Pradaxa for now unless pleural drainage is planned. In which case, it should be held for at least 24 hours. 2. Continue IV Lasix. 3. Pulmonary consultation. 4. We will review patient's past medical history regarding possibility of prior hematologic malignancy. Will follow. Thank you for the consultation. GABRIELLE HOLM M.D. [id number]
[2018-03-18] MEDS: FUROSEMIDE 40 MG/4 ML INJECTABLE VIAL IVPUSH SCH (10:00)
[2018-03-18] MEDS: ASPIRIN 81 MG CHEWABLE TABLETS PO SCH (10:00)
[2018-03-18] MEDS: DABIGATRAN ETEXILATE MESYLATE 150 MG CAPSULE PO SCH ×2 (10:29→21:35)
--- NOTE | 2018-03-18 11:28 | EKG ---
Test Reason : Blood Pressure : / mmHG Vent. Rate : 086 BPM Atrial Rate : 078 BPM P-R Int : 000 ms QRS Dur : 098 ms QT Int : 396 ms P-R-T Axes : 000 046 023 degrees QTc Int : 473 ms ATRIAL FIBRILLATION WITH OCCASIONAL ventricular-paced complexes INCOMPLETE RIGHT BUNDLE BRANCH BLOCK ABNORMAL ECG WHEN COMPARED WITH ECG OF 16-FEB-2017 13:21, ELECTRONIC VENTRICULAR PACEMAKER HAS REPLACED ATRIAL FIBRILLATION Confirmed by BOLA VILLA, DANIEL ([id number]) on 03/18/2018 11:28:38 AM Referred By: Confirmed By:DANIEL PLAZA MD
--- NOTE | 2018-03-18 12:29 | CON.PULM ---
Consult Consult Specialty:: PULMONARY Referred by:: Dr. Spears Reason for Consultation:: r/o pneumonia - History of Present Illness Chief Complaint: chest discomfort History of Present Illness: 82yo male with h/o HTN, hyperlipidemia, CAD s/p CABG, atrial fibrillation s/p PPM, mitral regurgitation, LV diastolic dysfunction who was admitted for worsening shortness of breath and right sided chest discomfort. Reports a mild nonproductive cough without wheezing. No fevers, chills or sweats. Reports leg and face swelling which has improved since admission. CXR showing a right sided density and right sided effusion, CT chest done February 2017 suggestive of loculated pleural effusion in the fissure. 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 - History Source History Provided By: Patient, Family Member, Medical Record Limitations to Obtaining History: Language Barrier - Past Medical History Cardio/Vascular: Yes: AFIB, CAD, CHF, HTN, Hyperlipdemia, Mitral Insufficiency, Murmur, Pulmonary Hypertension Pulmonary: Yes: Pneumonia Renal/: Yes: BPH Endocrine: Yes: Hypothyroidism - Past Surgical History Past Surgical History: Yes: Permanent Pacemaker - Alcohol/Substance Use Hx Alcohol Use: No - Smoking History Smoking history: Never smoked - Social History ADL: Independent History of Recent Travel: No Home Medications - Allergies Allergies/Adverse Reactions: Allergies Allergy/AdvReac Type Severity Reaction Status Date / Time Penicillins Allergy Verified 03/17/18 15:20 - Home Medications Home Medications: Ambulatory Orders Aspirin [ASA -] 81 mg PO DAILY 02/16/17 Atorvastatin Ca [Lipitor] 40 mg PO HS 02/16/17 Dabigatran Etexilate Mesylate [Pradaxa -] 150 mg PO BID 02/16/17 Levothyroxine [Synthroid -] 25 mcg PO DAILY 02/16/17 Tamsulosin HCl [Flomax -] 0.4 mg PO DAILY 02/16/17 Furosemide [Lasix -] 40 mg PO BIDLASIX tablet 02/21/17 Levofloxacin [Levaquin] 500 mg PO DAILY #30 tablet 02/21/17 Carbidopa/Levodopa 25/100 [Sinemet 25/100 -] 1 tab PO TID 03/18/18 Review of Systems - Review of Systems Constitutional: denies: Chills, Fever Eyes: denies: Recent Change in Vision HENT: denies: Nasal Congestion, Throat Pain Neck: denies: Stiffness, Tenderness Cardiovascular: reports: Chest Pain, Edema, Shortness of Breath Respiratory: reports: Cough. denies: Hemoptysis, Wheezing Gastrointestinal: denies: Abdominal Pain, Nausea, Vomiting Genitourinary: denies: Dysuria, Hematuria Endocrine: denies: Unexplained Weight Loss Physical Exam Vital Sings: Vital Signs Temperature 99.3 F 03/18/18 06:50 Pulse Rate 91 H 03/18/18 06:50 Respiratory Rate 20 03/18/18 06:50 Blood Pressure 126/73 03/18/18 06:50 O2 Sat by Pulse Oximetry (%) 98 03/17/18 18:58 Constitutional: Yes: Calm Eyes: Yes: Conjunctiva Clear, EOM Intact HENT: Yes: Atraumatic, Normocephalic Neck: Yes: Supple, Trachea Midline Cardiovascular: Yes: Regular Rate and Rhythm Respiratory: Yes: Diminished (decreased breath sounds right base) ...Clubbing: No Gastrointestinal: Yes: Normal Bowel Sounds, Soft. No: Tenderness Edema: Yes Neurological: Yes: Alert, Oriented Labs: CBC, BMP 03/18/18 06:30 03/18/18 06:30 Imaging - Results Chest X-ray: Report Reviewed, Image Reviewed (Right effusion, loculated effusion ) Problem List - Problems (1) Acute on chronic diastolic (congestive) heart failure Code(s): I50.33 - ACUTE ON CHRONIC DIASTOLIC (CONGESTIVE) HEART FAILURE (2) Pleural effusion Code(s): J90 - PLEURAL EFFUSION, NOT ELSEWHERE CLASSIFIED (3) CAD (coronary artery disease) Code(s): I25.10 - ATHSCL HEART DISEASE OF [place] CORONARY ARTERY W/O ANG PCTRS (4) Chronic atrial fibrillation Code(s): I48.2 - CHRONIC ATRIAL FIBRILLATION (5) HLD (hyperlipidemia) Code(s): E78.5 - HYPERLIPIDEMIA, UNSPECIFIED (6) Pulmonary HTN Code(s): I27.2 - OTHER SECONDARY PULMONARY HYPERTENSION * DO NOT USE * Assessment/Plan Acute on Chronic Diastolic Heart Failure Pulmonary HTN CAD s/p CABG Atrial Fibrillation s/p PPM Pleural Effusion HTN Hypercholesterolemia Hypothyroidism Parkinsons - IV lasix - monitor urine output, creatinine - daily weights - monitor CXR with diuresis - loculated effusion looks similar or improved from last year, continue to monitor as outpt - rate controlled - continue anticoagulation - clinical picture more consistent with decompensated CHF, less likely pneumonia, can d/c antibiotics Thank you for this consult Greg Amador MD
[2018-03-18] MEDS: CARBIDOPA/LEVODOPA 25/100 TABLET (FP) PO SCH ×2 (13:51→21:35)
--- NOTE | 2018-03-18 15:28 | HP ---
Admitting History and Physical - Admission History of Present Illness: 82 y/o M with a h/o Afib s/p PPM on Pradaxa, HTN, CAD s/p CABG 10/2011, Chronic diastolic CHF, moderate MR presents to the ER with SOB. According to family members his SOB is progressive. Outpatient CT chest read right sided loculated pleural effusion for wc he was sent today. He cont with SOB. Denies cp, pp. No diaphoresis, recent infections or fever. - Past Medical History Cardiovascular: Yes: AFIB, CAD, CHF, HTN, Hyperlipdemia, Mitral Insufficiency, Murmur, Pulmonary Hypertension Pulmonary: Yes: Pneumonia Renal/: Yes: BPH Endocrine: Yes: Hypothyroidism - Past Surgical History Past Surgical History: Yes: Permanent Pacemaker - Smoking History Smoking history: Never smoked - Alcohol/Substance Use Hx Alcohol Use: No - Social History ADL: Independent History of Recent Travel: No Home Medications - Allergies Allergies/Adverse Reactions: Allergies Allergy/AdvReac Type Severity Reaction Status Date / Time Penicillins Allergy Verified 03/17/18 15:20 - Home Medications Home Medications: Ambulatory Orders Aspirin [ASA -] 81 mg PO DAILY 02/16/17 Atorvastatin Ca [Lipitor] 40 mg PO HS 02/16/17 Dabigatran Etexilate Mesylate [Pradaxa -] 150 mg PO BID 02/16/17 Levothyroxine [Synthroid -] 25 mcg PO DAILY 02/16/17 Tamsulosin HCl [Flomax -] 0.4 mg PO DAILY 02/16/17 Carbidopa/Levodopa 25/100 [Sinemet 25/100 -] 1 each PO TID #90 tablet 03/23/18 Docusate Sodium [Colace -] 100 mg PO TID #90 capsule 03/23/18 Furosemide [Lasix -] 40 mg PO DAILY #30 tablet 03/23/18 Metoprolol Succinate [Toprol XL -] 12.5 mg PO DAILY #30 tab.sr.24h 03/23/18 Potassium Chloride [Potassium Chloride Oral Liquid] 20 meq PO BID #60 cup Physical Examination Vital Signs: Vital Signs Temperature 97.6 F 03/18/18 10:00 Pulse Rate 95 H 03/18/18 10:00 Respiratory Rate 18 03/18/18 10:00 Blood Pressure 137/70 03/18/18 10:00 O2 Sat by Pulse Oximetry (%) 98 05/02/18 18:58 Neck: Yes: Trachea Midline Cardiovascular: Yes: Regular Rate and Rhythm Respiratory: Yes: Diminished Gastrointestinal: Yes: Normal Bowel Sounds, Soft Labs: CBC, BMP 03/18/18 06:30 03/18/18 06:30 Problem List - Problems (1) CAD (coronary artery disease) Code(s): I25.10 - ATHSCL HEART DISEASE OF [place] CORONARY ARTERY W/O ANG PCTRS (2) HLD (hyperlipidemia) Code(s): E78.5 - HYPERLIPIDEMIA, UNSPECIFIED (3) HTN (hypertension) Code(s): I10 - ESSENTIAL (PRIMARY) HYPERTENSION (4) Pleural effusion Code(s): J90 - PLEURAL EFFUSION, NOT ELSEWHERE CLASSIFIED Assessment/Plan Large right pleural effusion--cont lasix Mild volume overload, chronic diastolic CHF--as per cardiology heme/onc consult given questionable h/o blood malignancy pulmonary consult
[2018-03-18] MEDS: ATORVASTATIN CA 40 MG TABLET (FP) PO SCH (21:35)
--- NOTE | 2018-03-18 23:17 | PN ---
Progress Note, Physician History of Present Illness: This was entered in error - Current Medication List Current Medications: Active Medications Albuterol/Ipratropium (Duoneb -) 1 amp NEB Q6H PRN PRN Reason: SHORTNESS OF BREATH Aspirin (Asa -) 81 mg PO DAILY [facility] Last Admin: 03/18/18 10:00 Dose: 81 mg Atorvastatin Calcium (Lipitor -) 40 mg PO HS [facility] Last Admin: 03/18/18 21:35 Dose: 40 mg Carbidopa/Levodopa (Sinemet 25/100 -) 1 each PO TID [facility] Last Admin: 03/18/18 21:35 Dose: 1 each Dabigatran (Pradaxa -) 150 mg PO BID [facility] Last Admin: 03/18/18 21:35 Dose: 150 mg Furosemide (Lasix Injection -) 40 mg IVPUSH DAILY [facility] Last Admin: 03/18/18 10:00 Dose: 40 mg Levothyroxine Sodium (Synthroid -) 25 mcg PO DAILY@0700 [facility] Last Admin: 03/18/18 06:16 Dose: 25 mcg Tamsulosin HCl (Flomax -) 0.4 mg PO DAILY@0830 [facility] Last Admin: 03/18/18 08:38 Dose: 0.4 mg - Objective Vital Signs: Vital Signs Temperature 98.4 F 03/18/18 18:04 Pulse Rate 84 03/18/18 18:04 Respiratory Rate 20 03/18/18 21:00 Blood Pressure 132/63 03/18/18 18:04 O2 Sat by Pulse Oximetry (%) 95 03/18/18 21:00 Labs: CBC, BMP 03/18/18 06:30 03/18/18 06:30 INR, PTT INR 1.39 (0.82-1.09) H 03/17/18 15:46
[2018-03-19] MEDS: CARBIDOPA/LEVODOPA 25/100 TABLET (FP) PO SCH ×3 (06:14→21:42)
--- NOTE | 2018-03-19 06:29 | PN ---
Progress Note, Physician Chief Complaint: weight is down no distress Records reviewed, he has no h/o heme malignancy: I was thinking of another patient with a very similar name, also w CAD - Current Medication List Current Medications: Active Medications Albuterol/Ipratropium (Duoneb -) 1 amp NEB Q6H PRN PRN Reason: SHORTNESS OF BREATH Aspirin (Asa -) 81 mg PO DAILY [facility] Last Admin: 03/18/18 10:00 Dose: 81 mg Atorvastatin Calcium (Lipitor -) 40 mg PO HS [facility] Last Admin: 03/18/18 21:35 Dose: 40 mg Carbidopa/Levodopa (Sinemet 25/100 -) 1 each PO TID [facility] Last Admin: 03/19/18 06:14 Dose: 1 each Dabigatran (Pradaxa -) 150 mg PO BID [facility] Last Admin: 03/18/18 21:35 Dose: 150 mg Furosemide (Lasix Injection -) 40 mg IVPUSH DAILY [facility] Last Admin: 03/18/18 10:00 Dose: 40 mg Levothyroxine Sodium (Synthroid -) 25 mcg PO DAILY@0700 [facility] Last Admin: 03/18/18 06:16 Dose: 25 mcg Tamsulosin HCl (Flomax -) 0.4 mg PO DAILY@0830 [facility] Last Admin: 03/18/18 08:38 Dose: 0.4 mg - Objective Vital Signs: Vital Signs Temperature 98.4 F 03/18/18 18:04 Pulse Rate 84 03/18/18 18:04 Respiratory Rate 20 03/18/18 21:00 Blood Pressure 132/63 03/18/18 18:04 O2 Sat by Pulse Oximetry (%) 95 03/18/18 21:00 Constitutional: Yes: No Distress, Calm Cardiovascular: Yes: Regular Rate and Rhythm Respiratory: Yes: CTA Bilaterally, Other (decreased breath sounds right) Gastrointestinal: Yes: Soft Edema: Yes Edema: LLE: Trace Neurological: Yes: Alert, Oriented ...Motor Strength: WNL Labs: CBC, BMP 03/18/18 06:30 03/18/18 06:30 INR, PTT INR 1.39 (0.82-1.09) H 03/17/18 15:46 Microbiology 03/17/18 15:46 Blood - Peripheral Venous Blood Culture - Preliminary NO GROWTH OBTAINED AFTER 24 HOURS, INCUBATION TO CONTINUE FOR 4 DAYS. 03/17/18 15:46 Blood - Peripheral Venous Blood Culture - Preliminary NO GROWTH OBTAINED AFTER 24 HOURS, INCUBATION TO CONTINUE FOR 4 DAYS. Laboratory Tests 03/18/18 06:30 Sodium 143 Assessment/Plan IMP: Large right pleural effusion Mild volume overload, acute on chronic diastolic CHF (HFpEF) CAD s/p CABG AF s/p PPM Moderate MR Parkinson's Disease Hypokalemia REC: 1. IV Lasix 2. BMP today, replete electrolytes 3. Daily weights 4. Would add low dose ARB only if BP becomes elevated. 5. Monitor CXR (r. effusion), pulmonary following
[2018-03-19] MEDS: LEVOTHYROXINE NA 25 MCG TABLET (FP) PO SCH (06:41)
[2018-03-19] MEDS: ASPIRIN 81 MG CHEWABLE TABLETS PO SCH (10:13)
[2018-03-19] MEDS: DABIGATRAN ETEXILATE MESYLATE 150 MG CAPSULE PO SCH ×2 (10:13→21:41)
[2018-03-19] MEDS: FUROSEMIDE 40 MG/4 ML INJECTABLE VIAL IVPUSH SCH (10:13)
[2018-03-19] MEDS: TAMSULOSIN HCL 0.4 MG CAP.ER.24H (FP) PO SCH (10:13)
--- NOTE | 2018-03-19 16:38 | PN ---
Progress Note, Physician History of Present Illness: pulmonary alert,no complaints,-sob,min cough - Current Medication List Current Medications: Active Medications Albuterol/Ipratropium (Duoneb -) 1 amp NEB Q6H PRN PRN Reason: SHORTNESS OF BREATH Aspirin (Asa -) 81 mg PO DAILY [facility] Last Admin: 03/19/18 10:13 Dose: 81 mg Atorvastatin Calcium (Lipitor -) 40 mg PO HS [facility] Last Admin: 03/18/18 21:35 Dose: 40 mg Carbidopa/Levodopa (Sinemet 25/100 -) 1 each PO TID [facility] Last Admin: 03/19/18 15:23 Dose: 1 each Dabigatran (Pradaxa -) 150 mg PO BID [facility] Last Admin: 03/19/18 10:13 Dose: 150 mg Furosemide (Lasix Injection -) 40 mg IVPUSH DAILY [facility] Last Admin: 03/19/18 10:13 Dose: 40 mg Levothyroxine Sodium (Synthroid -) 25 mcg PO DAILY@0700 [facility] Last Admin: 03/19/18 06:41 Dose: 25 mcg Tamsulosin HCl (Flomax -) 0.4 mg PO DAILY@0830 [facility] Last Admin: 03/19/18 10:13 Dose: 0.4 mg - Objective Vital Signs: Vital Signs Temperature 100.2 F H 03/19/18 16:09 Pulse Rate 78 03/19/18 16:09 Respiratory Rate 22 03/19/18 16:09 Blood Pressure 128/78 03/19/18 16:09 O2 Sat by Pulse Oximetry (%) 95 03/18/18 21:00 Constitutional: Yes: Calm, Thin Eyes: Yes: WNL HENT: Yes: WNL Neck: Yes: WNL Cardiovascular: Yes: Pulse Irregular, S1, S2 Respiratory: Yes: Rales (few bibasilaer crackles) Gastrointestinal: Yes: Normal Bowel Sounds, Soft Extremities: Yes: WNL Edema: No Labs: CBC, BMP 03/18/18 06:30 03/18/18 06:30 INR, PTT INR 1.39 (0.82-1.09) H 03/17/18 15:46 Assessment/Plan Problem List - Problems (1) Acute on chronic diastolic (congestive) heart failure Code(s): I50.33 - ACUTE ON CHRONIC DIASTOLIC (CONGESTIVE) HEART FAILURE (2) Pleural effusion Code(s): J90 - PLEURAL EFFUSION, NOT ELSEWHERE CLASSIFIED (3) CAD (coronary artery disease) Code(s): I25.10 - ATHSCL HEART DISEASE OF [place] CORONARY ARTERY W/O ANG PCTRS (4) Chronic atrial fibrillation Code(s): I48.2 - CHRONIC ATRIAL FIBRILLATION (5) HLD (hyperlipidemia) Code(s): E78.5 - HYPERLIPIDEMIA, UNSPECIFIED (6) Pulmonary HTN Code(s): I27.2 - OTHER SECONDARY PULMONARY HYPERTENSION * DO NOT USE * Assessment/Plan Acute on Chronic Diastolic Heart Failure Pulmonary HTN CAD s/p CABG Atrial Fibrillation s/p PPM Pleural Effusion HTN Hypercholesterolemia Hypothyroidism Parkinsons - IV lasix - monitor urine output, creatinine - daily weights - monitor CXR with diuresis - loculated effusion looks similar or improved from last year, continue to monitor as outpt - rate controlled - anticoagulation - clinical picture more consistent with decompensated CHF, less likely pneumonia, can d/c antibiotics DR TORRES
[2018-03-19] MEDS ORDERED: PT OWN MED DRAWER 7, Y5N ONE (20:58)
[2018-03-19] MEDS: ATORVASTATIN CA 40 MG TABLET (FP) PO SCH (21:41)
--- NOTE | 2018-03-19 22:20 | PN ---
Progress Note, Physician History of Present Illness: no new complaints - Current Medication List Current Medications: Active Medications Albuterol/Ipratropium (Duoneb -) 1 amp NEB Q6H PRN PRN Reason: SHORTNESS OF BREATH Aspirin (Asa -) 81 mg PO DAILY [facility] Last Admin: 03/19/18 10:13 Dose: 81 mg Atorvastatin Calcium (Lipitor -) 40 mg PO HS [facility] Last Admin: 03/19/18 21:41 Dose: 40 mg Carbidopa/Levodopa (Sinemet 25/100 -) 1 each PO TID [facility] Last Admin: 03/19/18 21:42 Dose: 1 each Dabigatran (Pradaxa -) 150 mg PO BID [facility] Last Admin: 03/19/18 21:41 Dose: 150 mg Furosemide (Lasix Injection -) 40 mg IVPUSH DAILY [facility] Last Admin: 03/19/18 10:13 Dose: 40 mg Levothyroxine Sodium (Synthroid -) 25 mcg PO DAILY@0700 [facility] Last Admin: 03/19/18 06:41 Dose: 25 mcg Tamsulosin HCl (Flomax -) 0.4 mg PO DAILY@0830 [facility] Last Admin: 03/19/18 10:13 Dose: 0.4 mg - Objective Vital Signs: Vital Signs Temperature 97.7 F 03/19/18 16:30 Pulse Rate 93 H 03/19/18 16:30 Respiratory Rate 20 03/19/18 21:00 Blood Pressure 111/56 03/19/18 16:30 O2 Sat by Pulse Oximetry (%) 94 L 03/19/18 21:00 Constitutional: Yes: No Distress Cardiovascular: Yes: Regular Rate and Rhythm Respiratory: Yes: Regular, Diminished Labs: CBC, BMP 03/18/18 06:30 03/18/18 06:30 INR, PTT INR 1.39 (0.82-1.09) H 03/17/18 15:46 Problem List - Problems (1) Acute on chronic diastolic (congestive) heart failure Code(s): I50.33 - ACUTE ON CHRONIC DIASTOLIC (CONGESTIVE) HEART FAILURE (2) CAD (coronary artery disease) Code(s): I25.10 - ATHSCL HEART DISEASE OF [place] CORONARY ARTERY W/O ANG PCTRS (3) HLD (hyperlipidemia) Code(s): E78.5 - HYPERLIPIDEMIA, UNSPECIFIED (4) HTN (hypertension) Code(s): I10 - ESSENTIAL (PRIMARY) HYPERTENSION (5) Pleural effusion Code(s): J90 - PLEURAL EFFUSION, NOT ELSEWHERE CLASSIFIED (6) SOB (shortness of breath) Code(s): R06.02 - SHORTNESS OF BREATH Assessment/Plan Large right pleural effusion--cont lasix Mild volume overload, chronic diastolic CHF--as per cardiology as per heme/onc as per pulmonary
[2018-03-20] MEDS: CARBIDOPA/LEVODOPA 25/100 TABLET (FP) PO SCH ×3 (06:13→21:14)
[2018-03-20] MEDS: LEVOTHYROXINE NA 25 MCG TABLET (FP) PO SCH (06:13)
[2018-03-20 07:46] LABS: BASO % 0.8 % (0-2.0); EOS % 2.9 % (0-4.5); HEMATOCRIT 38.3 % (35.4-49); HEMOGLOBIN 12.6 GM/dL (11.7-16.9); MCH 27.4 pg (25.7-33.7); MCHC 32.9 g/dl (32.0-35.9); MEAN CELL VOLUME 83.3 fl (80-96); MEAN PLT VOLUME 8.5 fl (7.5-11.1); MONO % 14.5 % (3.8-10.2); NEUT % 49.8 % (42.8-82.8); PLATELET COUNT 219 K/MM3 (134-434); RBC 4.61 M/mm3 (4.00-5.60); RDW 15.4 % (11.9-15.9); WHITE BLOOD COUNT 6.3 K/mm3 (4.0-10.0)
[2018-03-20 08:08] LABS: CHLORIDE 103 mmol/L (98-107); POTASSIUM 3.3 mmol/L (3.5-5.1); SODIUM 140 mmol/L (136-145)
[2018-03-20 08:22] LABS: ALBUMIN 3.3 g/dl (3.4-5.0); ALK PHOS 96 U/L (45-117); ANION GAP 7 (8-16); BILIRUBIN,TOTAL 1.1 mg/dL (0.2-1.0); BLOOD UREA NITROGEN 11 mg/dL (7-18); CO2 30 mmol/L (21-32); CREATININE 0.9 mg/dL (0.7-1.3); GLUCOSE,RANDOM 119 mg/dL (74-106); SGOT/AST 13 U/L (15-37); SGPT/ALT 6 U/L (12-78); TOT PROT 6.3 g/dl (6.4-8.2)
[2018-03-20] MEDS: TAMSULOSIN HCL 0.4 MG CAP.ER.24H (FP) PO SCH (08:46)
[2018-03-20] MEDS ORDERED: POTASSIUM CHLORIDE ORAL LIQUID 20 MEQ/15 ML PO ONE (08:50)
[2018-03-20] MEDS ORDERED: PT OWN MED DRAWER 7, Y5N ONE (09:19)
[2018-03-20] MEDS: ASPIRIN 81 MG CHEWABLE TABLETS PO SCH (09:21)
[2018-03-20] MEDS: FUROSEMIDE 40 MG/4 ML INJECTABLE VIAL IVPUSH SCH (09:21)
[2018-03-20] MEDS: DABIGATRAN ETEXILATE MESYLATE 150 MG CAPSULE PO SCH ×2 (09:22→21:14)
--- NOTE | 2018-03-20 09:29 | PN ---
Progress Note, Physician Chief Complaint: feels better pulm input re improvement in chronic effusion noted - Current Medication List Current Medications: Active Medications Albuterol/Ipratropium (Duoneb -) 1 amp NEB Q6H PRN PRN Reason: SHORTNESS OF BREATH Aspirin (Asa -) 81 mg PO DAILY [facility] Last Admin: 03/20/18 09:21 Dose: 81 mg Atorvastatin Calcium (Lipitor -) 40 mg PO HS [facility] Last Admin: 03/19/18 21:41 Dose: 40 mg Carbidopa/Levodopa (Sinemet 25/100 -) 1 each PO TID [facility] Last Admin: 03/20/18 06:13 Dose: 1 each Dabigatran (Pradaxa -) 150 mg PO BID [facility] Last Admin: 03/20/18 09:22 Dose: 150 mg Furosemide (Lasix Injection -) 40 mg IVPUSH DAILY [facility] Last Admin: 03/20/18 09:21 Dose: 40 mg Levothyroxine Sodium (Synthroid -) 25 mcg PO DAILY@0700 [facility] Last Admin: 03/20/18 06:13 Dose: 25 mcg Tamsulosin HCl (Flomax -) 0.4 mg PO DAILY@0830 [facility] Last Admin: 03/20/18 08:46 Dose: 0.4 mg - Objective Vital Signs: Vital Signs Temperature 98.3 F 03/20/18 06:00 Pulse Rate 88 03/20/18 06:00 Respiratory Rate 20 03/20/18 06:00 Blood Pressure 120/52 03/20/18 06:00 O2 Sat by Pulse Oximetry (%) 94 L 03/19/18 21:00 Constitutional: Yes: Calm Cardiovascular: Yes: Regular Rate and Rhythm Respiratory: Yes: CTA Bilaterally, Other (decreased right basilar breath sounds) Gastrointestinal: Yes: Soft Edema: No Labs: CBC, BMP 03/20/18 06:00 03/20/18 06:00 INR, PTT INR 1.39 (0.82-1.09) H 03/17/18 15:46 Microbiology 03/17/18 15:46 Blood - Peripheral Venous Blood Culture - Preliminary NO GROWTH OBTAINED AFTER 48 HOURS, INCUBATION TO CONTINUE FOR 3 DAYS. 03/17/18 15:46 Blood - Peripheral Venous Blood Culture - Preliminary NO GROWTH OBTAINED AFTER 48 HOURS, INCUBATION TO CONTINUE FOR 3 DAYS. Laboratory Tests 05/05/18 05/05/18 06:00 06:00 WBC 6.3 Hgb 12.6 D Plt Count 219 D Sodium 140 Potassium 3.3 L Creatinine 0.9 Assessment/Plan IMP: Large right pleural effusion Mild volume overload, acute on chronic diastolic CHF (HFpEF): improved. CAD s/p CABG AF s/p PPM on Pradaxa Moderate MR Parkinson's Disease Hypokalemia REC: 1. Switch to PO Lasix 2. Replete K+ 3. Daily weights reveal significant weight drop since admission with IV lasix correlating with clinical improvement. 4. Would add low dose ARB only if BP becomes elevated; his low dose Toprol ( 12.5mg) was discontinued in setting of acute CHF. At this point, does not seem to need it for HTN nor heart rate. In patient's with PD, LUIS/ARB/beta blockers can pose custodial problems exacerbating orthostatic BP changes that usually happen as the disease progresses. Would try to avoid these meds in this elderly patient and use only those meds that are essential for sx relief (Lasix) and for stroke prevention ( Pradaxa) so long as his gait remains fairly stable.
[2018-03-20] MEDS: FUROSEMIDE 40 MG TABLET (FP) PO SCH (12:37)
[2018-03-20] MEDS: POTASSIUM CHLORIDE ORAL LIQUID 20 MEQ/15 ML PO SCH ×2 (13:24→21:14)
--- NOTE | 2018-03-20 13:56 | PN ---
Progress Note, Physician History of Present Illness: pulmonary alert,no distress,-sob,min cough - Current Medication List Current Medications: Active Medications Albuterol/Ipratropium (Duoneb -) 1 amp NEB Q6H PRN PRN Reason: SHORTNESS OF BREATH Atorvastatin Calcium (Lipitor -) 40 mg PO HS [facility] Last Admin: 03/19/18 21:41 Dose: 40 mg Carbidopa/Levodopa (Sinemet 25/100 -) 1 each PO TID [facility] Last Admin: 03/20/18 13:40 Dose: 1 each Dabigatran (Pradaxa -) 150 mg PO BID [facility] Last Admin: 03/20/18 09:22 Dose: 150 mg Furosemide (Lasix -) 40 mg PO DAILY [facility] Last Admin: 03/20/18 12:37 Dose: Not Given Levothyroxine Sodium (Synthroid -) 25 mcg PO DAILY@0700 [facility] Last Admin: 03/20/18 06:13 Dose: 25 mcg Potassium Chloride (Potassium Chloride Oral Liquid) 20 meq PO BID [facility] Last Admin: 03/20/18 13:24 Dose: Not Given Tamsulosin HCl (Flomax -) 0.4 mg PO DAILY@0830 [facility] Last Admin: 03/20/18 08:46 Dose: 0.4 mg - Objective Vital Signs: Vital Signs Temperature 98 F 03/20/18 09:00 Pulse Rate 87 03/20/18 09:00 Respiratory Rate 20 03/20/18 09:00 Blood Pressure 123/58 03/20/18 09:00 O2 Sat by Pulse Oximetry (%) 94 L 03/20/18 09:00 Constitutional: Yes: Calm, Thin Eyes: Yes: WNL HENT: Yes: WNL Neck: Yes: WNL Cardiovascular: Yes: Pulse Irregular, S1, S2 Respiratory: Yes: Diminished Gastrointestinal: Yes: Normal Bowel Sounds, Soft Extremities: Yes: WNL Edema: No Labs: CBC, BMP 03/20/18 06:00 03/20/18 06:00 INR, PTT INR 1.39 (0.82-1.09) H 03/17/18 15:46 Assessment/Plan Problem List - Problems (1) Acute on chronic diastolic (congestive) heart failure Code(s): I50.33 - ACUTE ON CHRONIC DIASTOLIC (CONGESTIVE) HEART FAILURE (2) Pleural effusion Code(s): J90 - PLEURAL EFFUSION, NOT ELSEWHERE CLASSIFIED (3) CAD (coronary artery disease) Code(s): I25.10 - ATHSCL HEART DISEASE OF [place] CORONARY ARTERY W/O ANG PCTRS (4) Chronic atrial fibrillation Code(s): I48.2 - CHRONIC ATRIAL FIBRILLATION (5) HLD (hyperlipidemia) Code(s): E78.5 - HYPERLIPIDEMIA, UNSPECIFIED (6) Pulmonary HTN Code(s): I27.2 - OTHER SECONDARY PULMONARY HYPERTENSION * DO NOT USE * Assessment/Plan Acute on Chronic Diastolic Heart Failure improving Pulmonary HTN CAD s/p CABG Atrial Fibrillation s/p PPM Pleural Effusion HTN Hypercholesterolemia Hypothyroidism Parkinsons - IV lasix - monitor urine output, creatinine - daily weights - monitor CXR with diuresis - loculated effusion looks similar or improved from last year, continue to monitor as outpt - rate controlled - anticoagulation - clinical picture more consistent with decompensated CHF, less likely pneumonia, can d/c antibiotics DR TORRES
--- NOTE | 2018-03-20 15:55 | PN ---
Physical Exam: SUBJECTIVE: Patient seen and examined at the bedside. Feels well, not short of breath, comfortable at rest. Wants to ambulate more. OBJECTIVE: Vital Signs Period Temp Pulse Resp BP Sys/Hale Pulse Ox Last 24 Hr 97.7 F-100.2 F 78-93 20-22 111-128/52-78 94-94 GENERAL: The patient is awake, alert, and fully oriented, in no acute distress. jamaican speaking mostly HEAD: Normal with no signs of trauma. EYES: PERRL, extraocular movements intact, sclera anicteric, conjunctiva clear. No ptosis. ENT: Ears normal, nares patent, oropharynx clear without exudates, moist mucous membranes. NECK: Trachea midline, full range of motion, supple. LUNGS: Breath sounds equal, clear to auscultation bilaterally, no wheezes, no crackles, no accessory muscle use. HEART: Regular rate and rhythm, S1, S2 without murmur, rub or gallop. ABDOMEN: Soft, nontender, nondistended, normoactive bowel sounds, no guarding, no rebound, no hepatosplenomegaly, no masses. EXTREMITIES: no edema. NEUROLOGICAL: right hand tremors at rest PSYCH: Normal mood, normal affect. SKIN: Warm, dry, normal turgor, no rashes or lesions noted Laboratory Results - last 24 hr 03/20/18 03/20/18 06:00 06:00 WBC 6.3 RBC 4.61 Hgb 12.6 D Hct 38.3 MCV 83.3 MCH 27.4 MCHC 32.9 RDW 15.4 Plt Count 219 D MPV 8.5 Neutrophils % 49.8 Lymphocytes % 32.0 Monocytes % 14.5 H Eosinophils % 2.9 Basophils % 0.8 Sodium 140 Potassium 3.3 L Chloride 103 Carbon Dioxide 30 Anion Gap 7 L BUN 11 Creatinine 0.9 Creat Clearance w eGFR > 60 Random Glucose 119 H Calcium 8.0 L Total Bilirubin 1.1 H D AST 13 L ALT 6 L D Alkaline Phosphatase 96 Total Protein 6.3 L Albumin 3.3 L Active Medications Generic Name Dose Route Start Last Admin Trade Name Freq PRN Reason Stop Dose Admin Albuterol/Ipratropium 1 amp 03/18/18 03:31 Duoneb - NEB Q6H PRN SHORTNESS OF BREATH Atorvastatin Calcium 40 mg 03/18/18 22:00 03/19/18 21:41 Lipitor - PO 40 mg HS ANA Administration Carbidopa/Levodopa 1 each 03/18/18 14:00 03/20/18 13:40 Sinemet 25/100 - PO 1 each TID ANA Administration Dabigatran 150 mg 03/18/18 10:00 03/20/18 09:22 Pradaxa - PO 150 mg BID ANA Administration Furosemide 40 mg 03/20/18 10:00 03/20/18 12:37 Lasix - PO Not Given DAILY ANA Levothyroxine Sodium 25 mcg 03/18/18 07:00 03/20/18 06:13 Synthroid - PO 25 mcg DAILY@0700 ANA Administration Potassium Chloride 20 meq 03/20/18 10:00 03/20/18 13:24 Potassium Chloride Oral Liquid PO Not Given BID ANA Tamsulosin HCl 0.4 mg 03/18/18 08:30 03/20/18 08:46 Flomax - PO 0.4 mg DAILY@0830 ANA Administration ASSESSMENT/PLAN: Patient is an 82 year old male with a history of HTN, Afib s/p PPM on Pradaxa, HTN, HLD, CAD s/p CABG 10/2011, moderate MR, chronic diastolic CHF who presents to the ED on 03/17/2018 for evaluation of shortness of breath. Patient has been having worsening difficulty breathing and SOB. The patient had a ct chest on an outpatient basis which demonstrated a right sided loculated pleural effusion and the patient's primary care provider Dr. Cxo sent that patient in for admission. Pulmonary: Shortness of breath, resolved Lungs clear to auscultation bilaterally, tolerating room air Monitor off antibiotics On Lasix 40mg PO daily Duonebs q6 prn Pulm following Cardiology: Hypertension, controlled Atrial fibrillation s/p PPM On Pradaxa 150mg BID CAD s/p CABG 10/2011 Moderate MR, chronic diastolic CHF Pulmonary HTN On Lasix 40mg daily Lipitor 40mg @ hs Hypercholesterolemia, chronic On Lipitor Hypothyroidism, chronic On Synthroid Neuro: Parkinsons, chronic On Sinemet F.E.N. Fluids: tolerating PO Electrolytes: hypokalemia repleted Nutriton: low salt Prophy: DVT: on Pradaxa GI; deferred Disposition: full code Visit type - Emergency Visit Emergency Visit: Yes ED Registration Date: 05/02/18 Care time: The patient presented to the Emergency Department on the above date and was hospitalized for further evaluation of their emergent condition. - New Patient This patient is new to me today: No - Critical Care Critical Care patient: No - Discharge Referral Referred to [facility] No
[2018-03-20] MEDS: ATORVASTATIN CA 40 MG TABLET (FP) PO SCH (21:14)
[2018-03-21] MEDS: CARBIDOPA/LEVODOPA 25/100 TABLET (FP) PO SCH ×3 (05:25→21:56)
[2018-03-21] MEDS: LEVOTHYROXINE NA 25 MCG TABLET (FP) PO SCH (06:26)
[2018-03-21] MEDS: TAMSULOSIN HCL 0.4 MG CAP.ER.24H (FP) PO SCH (08:25)
[2018-03-21] MEDS ORDERED: PT OWN MED DRAWER 7, Y5N ONE ×2 (09:00→21:52)
[2018-03-21] MEDS: FUROSEMIDE 40 MG TABLET (FP) PO SCH (09:14)
[2018-03-21] MEDS: POTASSIUM CHLORIDE ORAL LIQUID 20 MEQ/15 ML PO SCH ×2 (09:14→21:56)
[2018-03-21] MEDS: DABIGATRAN ETEXILATE MESYLATE 150 MG CAPSULE PO SCH ×2 (09:14→21:55)
[2018-03-21 09:52] LABS: BASO % 0.6 % (0-2.0); HEMATOCRIT 40.6 % (35.4-49); HEMOGLOBIN 13.2 GM/dL (11.7-16.9); LYMPH % 28.8 % (8-40); MCH 27.2 pg (25.7-33.7); MCHC 32.4 g/dl (32.0-35.9); MEAN CELL VOLUME 83.9 fl (80-96); MEAN PLT VOLUME 8.1 fl (7.5-11.1); MONO % 12.3 % (3.8-10.2); NEUT % 55.3 % (42.8-82.8); PLATELET COUNT 228 K/MM3 (134-434); RBC 4.84 M/mm3 (4.00-5.60); RDW 15.9 % (11.9-15.9); WHITE BLOOD COUNT 5.9 K/mm3 (4.0-10.0)
[2018-03-21 10:15] LABS: ALBUMIN 3.4 g/dl (3.4-5.0); ANION GAP 6 (8-16); BLOOD UREA NITROGEN 9 mg/dL (7-18); CALCIUM 8.1 mg/dL (8.5-10.1); CHLORIDE 105 mmol/L (98-107); CO2 30 mmol/L (21-32); GLUCOSE,RANDOM 162 mg/dL (74-106); MAGNESIUM 2.2 mg/dL (1.8-2.4); SGOT/AST 17 U/L (15-37); SODIUM 141 mmol/L (136-145)
[2018-03-21 10:18] LABS: ALK PHOS 102 U/L (45-117); BILIRUBIN,TOTAL 1.1 mg/dL (0.2-1.0); CREATININE 0.9 mg/dL (0.7-1.3); SGPT/ALT < 6 U/L (12-78); TOT PROT 6.8 g/dl (6.4-8.2)
[2018-03-21] MEDS ORDERED: BISACODYL 5 MG TABLET.DR (FP) PO ONE (12:15)
[2018-03-21] MEDS: DOCUSATE SODIUM 100 MG CAPSULE (FP) PO SCH ×2 (13:58→21:56)
--- NOTE | 2018-03-21 14:33 | PN ---
Progress Note, Physician History of Present Illness: pulmonary alert,no distress,-sob,less cough - Current Medication List Current Medications: Active Medications Albuterol/Ipratropium (Duoneb -) 1 amp NEB Q6H PRN PRN Reason: SHORTNESS OF BREATH Atorvastatin Calcium (Lipitor -) 40 mg PO HS [facility] Last Admin: 03/20/18 21:14 Dose: 40 mg Carbidopa/Levodopa (Sinemet 25/100 -) 1 each PO TID [facility] Last Admin: 03/21/18 13:58 Dose: 1 each Dabigatran (Pradaxa -) 150 mg PO BID [facility] Last Admin: 03/21/18 09:14 Dose: 150 mg Docusate Sodium (Colace -) 100 mg PO TID [facility] Last Admin: 03/21/18 13:58 Dose: 100 mg Furosemide (Lasix -) 40 mg PO DAILY [facility] Last Admin: 03/21/18 09:14 Dose: 40 mg Levothyroxine Sodium (Synthroid -) 25 mcg PO DAILY@0700 [facility] Last Admin: 03/21/18 06:26 Dose: 25 mcg Potassium Chloride (Potassium Chloride Oral Liquid) 20 meq PO BID [facility] Last Admin: 03/21/18 09:14 Dose: 20 meq Tamsulosin HCl (Flomax -) 0.4 mg PO DAILY@0830 [facility] Last Admin: 03/21/18 08:25 Dose: 0.4 mg - Objective Vital Signs: Vital Signs Temperature 98.4 F 03/21/18 09:00 Pulse Rate 85 03/21/18 10:15 Respiratory Rate 20 03/21/18 09:00 Blood Pressure 126/76 03/21/18 09:00 O2 Sat by Pulse Oximetry (%) 94 L 03/21/18 10:15 Constitutional: Yes: Well Nourished, Calm Eyes: Yes: WNL HENT: Yes: WNL Neck: Yes: WNL Cardiovascular: Yes: Pulse Irregular, S1, S2 Respiratory: Yes: Diminished Gastrointestinal: Yes: Normal Bowel Sounds, Soft Extremities: Yes: WNL Edema: No Labs: CBC, BMP 03/21/18 09:30 03/21/18 09:30 INR, PTT INR 1.39 (0.82-1.09) H 03/17/18 15:46 Assessment/Plan Problem List - Problems (1) Acute on chronic diastolic (congestive) heart failure Code(s): I50.33 - ACUTE ON CHRONIC DIASTOLIC (CONGESTIVE) HEART FAILURE (2) Pleural effusion Code(s): J90 - PLEURAL EFFUSION, NOT ELSEWHERE CLASSIFIED (3) CAD (coronary artery disease) Code(s): I25.10 - ATHSCL HEART DISEASE OF [place] CORONARY ARTERY W/O ANG PCTRS (4) Chronic atrial fibrillation Code(s): I48.2 - CHRONIC ATRIAL FIBRILLATION (5) HLD (hyperlipidemia) Code(s): E78.5 - HYPERLIPIDEMIA, UNSPECIFIED (6) Pulmonary HTN Code(s): I27.2 - OTHER SECONDARY PULMONARY HYPERTENSION * DO NOT USE * Assessment/Plan Acute on Chronic Diastolic Heart Failure improving Pulmonary HTN CAD s/p CABG Atrial Fibrillation s/p PPM Pleural Effusion HTN Hypercholesterolemia Hypothyroidism Parkinsons - IV lasix - monitor urine output, creatinine - daily weights - monitor CXR with diuresis - loculated effusion looks similar or improved from last year, continue to monitor as outpt - rate controlled - anticoagulation DR TORRES
--- NOTE | 2018-03-21 19:06 | PN ---
Physical Exam: SUBJECTIVE: Patient seen and examined at the bedside. Sitting in chair, in not acute distress. No chest pain OBJECTIVE: Ambulated today with respiratory therapist Monitor on PO lasix prior to d/c Vital Signs Period Temp Pulse Resp BP Sys/Hale Pulse Ox Last 24 Hr 97.3 F-98.6 F 84-88 20-20 113-128/61-76 94-95 GENERAL: The patient is awake, alert, and fully oriented, in no acute distress. thai speaking mostly HEAD: Normal with no signs of trauma. EYES: PERRL, extraocular movements intact, sclera anicteric, conjunctiva clear. No ptosis. ENT: Ears normal, nares patent, oropharynx clear without exudates, moist mucous membranes. NECK: Trachea midline, full range of motion, supple. LUNGS: Breath sounds equal, clear to auscultation bilaterally, no wheezes, no crackles, no accessory muscle use. HEART: Regular rate and rhythm, S1, S2 without murmur, rub or gallop. ABDOMEN: Soft, nontender, nondistended, normoactive bowel sounds, no guarding, no rebound, no hepatosplenomegaly, no masses. EXTREMITIES: no edema. NEUROLOGICAL: right hand tremors at rest PSYCH: Normal mood, normal affect. SKIN: Warm, dry, normal turgor, no rashes or lesions noted Laboratory Results - last 24 hr 03/21/18 03/21/18 09:30 09:30 WBC 5.9 RBC 4.84 Hgb 13.2 Hct 40.6 MCV 83.9 MCH 27.2 MCHC 32.4 RDW 15.9 Plt Count 228 MPV 8.1 Neutrophils % 55.3 Lymphocytes % 28.8 Monocytes % 12.3 H Eosinophils % 3.0 Basophils % 0.6 Sodium 141 Potassium 4.0 D Chloride 105 Carbon Dioxide 30 Anion Gap 6 L BUN 9 Creatinine 0.9 Creat Clearance w eGFR > 60 Random Glucose 162 H D Calcium 8.1 L Magnesium 2.2 Total Bilirubin 1.1 H AST 17 D ALT < 6 L Alkaline Phosphatase 102 Total Protein 6.8 Albumin 3.4 Active Medications Generic Name Dose Route Start Last Admin Trade Name Freq PRN Reason Stop Dose Admin Albuterol/Ipratropium 1 amp 03/18/18 03:31 Duoneb - NEB Q6H PRN SHORTNESS OF BREATH Atorvastatin Calcium 40 mg 03/18/18 22:00 03/20/18 21:14 Lipitor - PO 40 mg HS ANA Administration Carbidopa/Levodopa 1 each 03/18/18 14:00 03/21/18 13:58 Sinemet 25/100 - PO 1 each TID ANA Administration Dabigatran 150 mg 03/18/18 10:00 03/21/18 09:14 Pradaxa - PO 150 mg BID ANA Administration Docusate Sodium 100 mg 03/21/18 14:00 03/21/18 13:58 Colace - PO 100 mg TID ANA Administration Furosemide 40 mg 03/20/18 10:00 03/21/18 09:14 Lasix - PO 40 mg DAILY ANA Administration Levothyroxine Sodium 25 mcg 03/18/18 07:00 03/21/18 06:26 Synthroid - PO 25 mcg DAILY@0700 ANA Administration Potassium Chloride 20 meq 03/20/18 10:00 03/21/18 09:14 Potassium Chloride Oral Liquid PO 20 meq BID ANA Administration Tamsulosin HCl 0.4 mg 03/18/18 08:30 03/21/18 08:25 Flomax - PO 0.4 mg DAILY@0830 ANA Administration ASSESSMENT/PLAN: Patient is an 82 year old male with a history of HTN, Afib s/p PPM on Pradaxa, HTN, HLD, CAD s/p CABG 10/2011, moderate MR, chronic diastolic CHF who presents to the ED on 03/17/2018 for evaluation of shortness of breath. Patient has been having worsening difficulty breathing and SOB. The patient had a ct chest on an outpatient basis which demonstrated a right sided loculated pleural effusion and the patient's primary care provider Dr. Cox sent that patient in for admission. Pulmonary: Shortness of breath, resolved Lungs clear to auscultation bilaterally, tolerating room air Monitor off antibiotics On Lasix 40mg PO daily Duonebs q6 prn Pulm following Monitor intake and output on PO Lasix Weights have decreased from 81>75kg since admission Pulmonary HTN On Lasix 40mg daily Cardiology: Hypertension, controlled Atrial fibrillation/PPM On Pradaxa 150mg BID CAD s/p CABG 10/2011 Moderate MR, chronic diastolic CHF Hypercholesterolemia, chronic On Lipitor Hypothyroidism, chronic On Synthroid Neuro: Parkinsons, chronic On Sinemet Ambulatory with assistance Right hand resting tremor Disposition: full code Visit type - Emergency Visit Emergency Visit: Yes ED Registration Date: 03/17/18 Care time: The patient presented to the Emergency Department on the above date and was hospitalized for further evaluation of their emergent condition. - New Patient This patient is new to me today: No - Critical Care Critical Care patient: No - Discharge Referral Referred to [facility] No
[2018-03-21] MEDS: ATORVASTATIN CA 40 MG TABLET (FP) PO SCH (21:56)
[2018-03-22] MEDS: DOCUSATE SODIUM 100 MG CAPSULE (FP) PO SCH ×3 (05:47→21:59)
[2018-03-22] MEDS: CARBIDOPA/LEVODOPA 25/100 TABLET (FP) PO SCH ×3 (05:48→21:59)
[2018-03-22] MEDS: LEVOTHYROXINE NA 25 MCG TABLET (FP) PO SCH (06:30)
[2018-03-22] MEDS: TAMSULOSIN HCL 0.4 MG CAP.ER.24H (FP) PO SCH (08:51)
--- NOTE | 2018-03-22 08:56 | PN ---
Progress Note, Physician Chief Complaint: Back in AF today on auscultation - Current Medication List Current Medications: Active Medications Albuterol/Ipratropium (Duoneb -) 1 amp NEB Q6H PRN PRN Reason: SHORTNESS OF BREATH Atorvastatin Calcium (Lipitor -) 40 mg PO HS [facility] Last Admin: 03/21/18 21:56 Dose: 40 mg Carbidopa/Levodopa (Sinemet 25/100 -) 1 each PO TID [facility] Last Admin: 03/22/18 05:48 Dose: 1 each Dabigatran (Pradaxa -) 150 mg PO BID [facility] Last Admin: 03/21/18 21:55 Dose: 150 mg Docusate Sodium (Colace -) 100 mg PO TID [facility] Last Admin: 03/22/18 05:47 Dose: 100 mg Furosemide (Lasix -) 40 mg PO DAILY [facility] Last Admin: 03/21/18 09:14 Dose: 40 mg Levothyroxine Sodium (Synthroid -) 25 mcg PO DAILY@0700 [facility] Last Admin: 03/22/18 06:30 Dose: 25 mcg Potassium Chloride (Potassium Chloride Oral Liquid) 20 meq PO BID [facility] Last Admin: 03/21/18 21:56 Dose: 20 meq Tamsulosin HCl (Flomax -) 0.4 mg PO DAILY@0830 [facility] Last Admin: 03/22/18 08:51 Dose: 0.4 mg - Objective Vital Signs: Vital Signs Temperature 98.3 F 03/22/18 07:21 Pulse Rate 92 H 03/22/18 07:21 Respiratory Rate 20 03/22/18 07:21 Blood Pressure 118/58 03/22/18 07:21 O2 Sat by Pulse Oximetry (%) 94 L 03/21/18 21:00 Constitutional: Yes: No Distress Cardiovascular: Yes: Tachycardia, Pulse Irregular Respiratory: Yes: CTA Bilaterally Gastrointestinal: Yes: Soft Edema: No Labs: CBC, BMP 03/21/18 09:30 03/21/18 09:30 INR, PTT INR 1.39 (0.82-1.09) H 03/17/18 15:46 Laboratory Tests 03/21/18 03/21/18 09:30 09:30 WBC 5.9 Hgb 13.2 Plt Count 228 Sodium 141 Potassium 4.0 D Creatinine 0.9 Assessment/Plan IMP: Large right pleural effusion Mild volume overload, acute on chronic diastolic CHF (HFpEF): improved. CAD s/p CABG PAF s/p PPM on Pradaxa Moderate MR Parkinson's Disease Hypokalemia REC: Tried simplifying his regimen by holding Toprol (see prior notes), but now back in AF. Resume Toprol 12.5mg daily. F/u ECG later today.
[2018-03-22 09:31] LABS: BASO % 0.5 % (0-2.0); HEMATOCRIT 39.9 % (35.4-49); HEMOGLOBIN 13.1 GM/dL (11.7-16.9); LYMPH % 25.6 % (8-40); MCH 27.4 pg (25.7-33.7); MCHC 32.9 g/dl (32.0-35.9); MEAN CELL VOLUME 83.3 fl (80-96); MEAN PLT VOLUME 8.1 fl (7.5-11.1); MONO % 11.7 % (3.8-10.2); NEUT % 59.2 % (42.8-82.8); PLATELET COUNT 234 K/MM3 (134-434); RBC 4.79 M/mm3 (4.00-5.60); RDW 15.7 % (11.9-15.9); WHITE BLOOD COUNT 6.3 K/mm3 (4.0-10.0)
[2018-03-22 09:54] LABS: ALBUMIN 3.5 g/dl (3.4-5.0); ANION GAP 2 (8-16); BLOOD UREA NITROGEN 10 mg/dL (7-18); CALCIUM 8.3 mg/dL (8.5-10.1); CHLORIDE 104 mmol/L (98-107); CO2 31 mmol/L (21-32); CREATININE 0.9 mg/dL (0.7-1.3); GLUCOSE,RANDOM 183 mg/dL (74-106); SGPT/ALT 7 U/L (12-78); SODIUM 137 mmol/L (136-145)
[2018-03-22 09:56] LABS: ALK PHOS 105 U/L (45-117); BILIRUBIN,TOTAL 0.9 mg/dL (0.2-1.0); TOT PROT 6.9 g/dl (6.4-8.2)
[2018-03-22 10:00] LABS: MAGNESIUM 2.2 mg/dL (1.8-2.4); POTASSIUM 4.8 mmol/L (3.5-5.1); SGOT/AST 24 U/L (15-37)
[2018-03-22] MEDS: FUROSEMIDE 40 MG TABLET (FP) PO SCH (10:00)
[2018-03-22] MEDS: POTASSIUM CHLORIDE ORAL LIQUID 20 MEQ/15 ML PO SCH ×2 (10:00→21:59)
[2018-03-22] MEDS: metoPROLOL SUCCINATE 25 MG TAB.SR.24H (FP) PO SCH (10:00)
[2018-03-22] MEDS: DABIGATRAN ETEXILATE MESYLATE 150 MG CAPSULE PO SCH ×2 (10:01→21:59)
--- NOTE | 2018-03-22 12:34 | EKG ---
Test Reason : Blood Pressure : / mmHG Vent. Rate : 079 BPM Atrial Rate : 227 BPM P-R Int : 000 ms QRS Dur : 100 ms QT Int : 374 ms P-R-T Axes : 000 026 048 degrees QTc Int : 428 ms ATRIAL FIBRILLATION WITH OCCASIONAL ventricular-paced complexes INCOMPLETE RIGHT BUNDLE BRANCH BLOCK ABNORMAL ECG WHEN COMPARED WITH ECG OF 17-MAR-2018 18:16, VENT. RATE HAS DECREASED BY 7 BPM Confirmed by AMIE VILLA, WATSON ([id number]) on 03/22/2018 12:34:24 PM Referred By: Confirmed By:WATSON HOLLOWAY MD
--- NOTE | 2018-03-22 16:31 | PN ---
Progress Note, Physician History of Present Illness: pulmonary alert,feeling better,-sob - Current Medication List Current Medications: Active Medications Albuterol/Ipratropium (Duoneb -) 1 amp NEB Q6H PRN PRN Reason: SHORTNESS OF BREATH Atorvastatin Calcium (Lipitor -) 40 mg PO HS [facility] Last Admin: 03/21/18 21:56 Dose: 40 mg Carbidopa/Levodopa (Sinemet 25/100 -) 1 each PO TID [facility] Last Admin: 03/22/18 13:49 Dose: 1 each Dabigatran (Pradaxa -) 150 mg PO BID [facility] Last Admin: 03/22/18 10:01 Dose: 150 mg Docusate Sodium (Colace -) 100 mg PO TID [facility] Last Admin: 03/22/18 13:48 Dose: Not Given Furosemide (Lasix -) 40 mg PO DAILY [facility] Last Admin: 03/22/18 10:00 Dose: 40 mg Levothyroxine Sodium (Synthroid -) 25 mcg PO DAILY@0700 [facility] Last Admin: 03/22/18 06:30 Dose: 25 mcg Metoprolol Succinate (Toprol Xl -) 12.5 mg PO DAILY [facility] Last Admin: 03/22/18 10:00 Dose: 12.5 mg Potassium Chloride (Potassium Chloride Oral Liquid) 20 meq PO BID [facility] Last Admin: 03/22/18 10:00 Dose: 20 meq Tamsulosin HCl (Flomax -) 0.4 mg PO DAILY@0830 [facility] Last Admin: 03/22/18 08:51 Dose: 0.4 mg - Objective Vital Signs: Vital Signs Temperature 97.7 F 03/22/18 15:21 Pulse Rate 89 03/22/18 15:21 Respiratory Rate 22 03/22/18 15:21 Blood Pressure 121/64 03/22/18 15:21 O2 Sat by Pulse Oximetry (%) 98 03/22/18 09:00 Constitutional: Yes: Calm, Thin Eyes: Yes: WNL HENT: Yes: WNL Neck: Yes: WNL Cardiovascular: Yes: Pulse Irregular, S1, S2 Respiratory: Yes: Rales (bibasilar rales) Gastrointestinal: Yes: Normal Bowel Sounds, Soft Extremities: Yes: WNL Edema: No Labs: CBC, BMP 03/22/18 09:13 03/22/18 09:13 INR, PTT INR 1.39 (0.82-1.09) H 03/17/18 15:46 Assessment/Plan Problem List - Problems (1) Acute on chronic diastolic (congestive) heart failure Code(s): I50.33 - ACUTE ON CHRONIC DIASTOLIC (CONGESTIVE) HEART FAILURE (2) Pleural effusion Code(s): J90 - PLEURAL EFFUSION, NOT ELSEWHERE CLASSIFIED (3) CAD (coronary artery disease) Code(s): I25.10 - ATHSCL HEART DISEASE OF [place] CORONARY ARTERY W/O ANG PCTRS (4) Chronic atrial fibrillation Code(s): I48.2 - CHRONIC ATRIAL FIBRILLATION (5) HLD (hyperlipidemia) Code(s): E78.5 - HYPERLIPIDEMIA, UNSPECIFIED (6) Pulmonary HTN Code(s): I27.2 - OTHER SECONDARY PULMONARY HYPERTENSION * DO NOT USE * Assessment/Plan Acute on Chronic Diastolic Heart Failure improving Pulmonary HTN CAD s/p CABG Atrial Fibrillation s/p PPM Pleural Effusion HTN Hypercholesterolemia Hypothyroidism Parkinsons - IV lasix - monitor urine output, creatinine - daily weights - loculated effusion looks similar or improved from last year, continue to monitor as outpt - rate controlled - anticoagulation - chest x-ray DR TORRES
--- NOTE | 2018-03-22 21:08 | PN ---
Progress Note, Physician History of Present Illness: No new complaints - Current Medication List Current Medications: Active Medications Albuterol/Ipratropium (Duoneb -) 1 amp NEB Q6H PRN PRN Reason: SHORTNESS OF BREATH Atorvastatin Calcium (Lipitor -) 40 mg PO HS [facility] Last Admin: 03/21/18 21:56 Dose: 40 mg Carbidopa/Levodopa (Sinemet 25/100 -) 1 each PO TID [facility] Last Admin: 03/22/18 13:49 Dose: 1 each Dabigatran (Pradaxa -) 150 mg PO BID [facility] Last Admin: 03/22/18 10:01 Dose: 150 mg Docusate Sodium (Colace -) 100 mg PO TID [facility] Last Admin: 03/22/18 13:48 Dose: Not Given Furosemide (Lasix -) 40 mg PO DAILY [facility] Last Admin: 03/22/18 10:00 Dose: 40 mg Levothyroxine Sodium (Synthroid -) 25 mcg PO DAILY@0700 [facility] Last Admin: 03/22/18 06:30 Dose: 25 mcg Metoprolol Succinate (Toprol Xl -) 12.5 mg PO DAILY [facility] Last Admin: 03/22/18 10:00 Dose: 12.5 mg Potassium Chloride (Potassium Chloride Oral Liquid) 20 meq PO BID [facility] Last Admin: 03/22/18 10:00 Dose: 20 meq Tamsulosin HCl (Flomax -) 0.4 mg PO DAILY@0830 [facility] Last Admin: 03/22/18 08:51 Dose: 0.4 mg - Objective Vital Signs: Vital Signs Temperature 97.6 F 03/22/18 17:42 Pulse Rate 87 03/22/18 17:42 Respiratory Rate 18 03/22/18 17:42 Blood Pressure 112/62 03/22/18 17:42 O2 Sat by Pulse Oximetry (%) 98 03/22/18 09:00 HENT: Yes: WNL Neck: Yes: WNL, Supple Cardiovascular: Yes: Pulse Irregular Respiratory: Yes: Diminished Gastrointestinal: Yes: WNL, Normal Bowel Sounds, Soft Edema: No Labs: CBC, BMP 03/22/18 09:13 03/22/18 09:13 INR, PTT INR 1.39 (0.82-1.09) H 03/17/18 15:46 Problem List - Problems (1) Chronic atrial fibrillation Assessment/Plan: Heart rate was elevated and in AFib today Toprol restarted Heart rate better controlled Cont eliquis Code(s): I48.2 - CHRONIC ATRIAL FIBRILLATION (2) Acute on chronic diastolic (congestive) heart failure Assessment/Plan: Cont lasix Monitor electrolytes DC planning for am Code(s): I50.33 - ACUTE ON CHRONIC DIASTOLIC (CONGESTIVE) HEART FAILURE (3) Pleural effusion Assessment/Plan: No intervention at this time Cont duoneb prn Code(s): J90 - PLEURAL EFFUSION, NOT ELSEWHERE CLASSIFIED (4) HTN (hypertension) Assessment/Plan: Bp controlled Cont antihypertensives Code(s): I10 - ESSENTIAL (PRIMARY) HYPERTENSION (5) BPH (benign prostatic hyperplasia) Assessment/Plan: Cont flomax Code(s): N40.0 - BENIGN PROSTATIC HYPERPLASIA WITHOUT LOWER URINRY TRACT SYMP (6) CAD (coronary artery disease) Code(s): I25.10 - ATHSCL HEART DISEASE OF [place] CORONARY ARTERY W/O ANG PCTRS (7) HLD (hyperlipidemia) Code(s): E78.5 - HYPERLIPIDEMIA, UNSPECIFIED (8) Hypothyroid Assessment/Plan: Cont levothyroxine Code(s): E03.9 - HYPOTHYROIDISM, UNSPECIFIED (9) Hx of CABG Code(s): Z95.1 - PRESENCE OF AORTOCORONARY BYPASS GRAFT
[2018-03-22] MEDS: ATORVASTATIN CA 40 MG TABLET (FP) PO SCH (21:59)
[2018-03-23] MEDS: DOCUSATE SODIUM 100 MG CAPSULE (FP) PO SCH ×2 (05:40→14:55)
[2018-03-23] MEDS: CARBIDOPA/LEVODOPA 25/100 TABLET (FP) PO SCH ×2 (05:40→14:55)
[2018-03-23] MEDS: LEVOTHYROXINE NA 25 MCG TABLET (FP) PO SCH (06:02)
[2018-03-23] MEDS: TAMSULOSIN HCL 0.4 MG CAP.ER.24H (FP) PO SCH (07:51)
[2018-03-23 08:03] LABS: HEMATOCRIT 38.6 % (35.4-49); HEMOGLOBIN 12.9 GM/dL (11.7-16.9); MCH 27.7 pg (25.7-33.7); MCHC 33.4 g/dl (32.0-35.9); MEAN CELL VOLUME 82.8 fl (80-96); MEAN PLT VOLUME 8.6 fl (7.5-11.1); PLATELET COUNT 240 K/MM3 (134-434); RBC 4.66 M/mm3 (4.00-5.60); RDW 15.6 % (11.9-15.9); WHITE BLOOD COUNT 6.8 K/mm3 (4.0-10.0)
[2018-03-23 08:29] LABS: CHLORIDE 104 mmol/L (98-107); POTASSIUM 4.5 mmol/L (3.5-5.1); SODIUM 139 mmol/L (136-145)
[2018-03-23 08:51] LABS: ALBUMIN 3.4 g/dl (3.4-5.0); ALK PHOS 100 U/L (45-117); ANION GAP 7 (8-16); BILIRUBIN,TOTAL 0.9 mg/dL (0.2-1.0); BLOOD UREA NITROGEN 11 mg/dL (7-18); CALCIUM 8.3 mg/dL (8.5-10.1); CO2 28 mmol/L (21-32); CREATININE 0.9 mg/dL (0.7-1.3); GLUCOSE,RANDOM 117 mg/dL (74-106); SGOT/AST 20 U/L (15-37); SGPT/ALT 6 U/L (12-78); TOT PROT 6.8 g/dl (6.4-8.2)
--- NOTE | 2018-03-23 09:07 | PN ---
Progress Note, Physician Chief Complaint: ECG confirmed he flipped back into AF, but rates controlled - Current Medication List Current Medications: Active Medications Atorvastatin Calcium (Lipitor -) 40 mg PO HS [facility] Last Admin: 03/22/18 21:59 Dose: 40 mg Carbidopa/Levodopa (Sinemet 25/100 -) 1 each PO TID [facility] Last Admin: 03/23/18 05:40 Dose: 1 each Dabigatran (Pradaxa -) 150 mg PO BID [facility] Last Admin: 03/22/18 21:59 Dose: 150 mg Docusate Sodium (Colace -) 100 mg PO TID [facility] Last Admin: 03/23/18 05:40 Dose: 100 mg Furosemide (Lasix -) 40 mg PO DAILY [facility] Last Admin: 03/22/18 10:00 Dose: 40 mg Levothyroxine Sodium (Synthroid -) 25 mcg PO DAILY@0700 [facility] Last Admin: 03/23/18 06:02 Dose: 25 mcg Metoprolol Succinate (Toprol Xl -) 12.5 mg PO DAILY [facility] Last Admin: 03/22/18 10:00 Dose: 12.5 mg Potassium Chloride (Potassium Chloride Oral Liquid) 20 meq PO BID [facility] Last Admin: 03/22/18 21:59 Dose: 20 meq Tamsulosin HCl (Flomax -) 0.4 mg PO DAILY@0830 [facility] Last Admin: 03/23/18 07:51 Dose: 0.4 mg - Objective Vital Signs: Vital Signs Temperature 98.3 F 03/23/18 06:23 Pulse Rate 95 H 03/23/18 06:23 Respiratory Rate 18 03/23/18 06:23 Blood Pressure 119/64 03/23/18 06:23 O2 Sat by Pulse Oximetry (%) 98 03/22/18 21:00 Constitutional: Yes: No Distress Cardiovascular: Yes: Pulse Irregular Respiratory: Yes: CTA Bilaterally, Other (decreased breath sounds left base) Gastrointestinal: Yes: Soft Edema: No Neurological: Yes: Alert Labs: CBC, BMP 03/23/18 06:15 03/23/18 06:15 INR, PTT INR 1.39 (0.82-1.09) H 03/17/18 15:46 Assessment/Plan IMP: Large pleural effusion, chronic Mild volume overload, acute on chronic diastolic CHF (HFpEF): improved. CAD s/p CABG PAF s/p PPM on Pradaxa Moderate MR Parkinson's Disease Hypokalemia REC: Tried simplifying his regimen by holding Toprol (see prior notes), but now back in AF- rate controlled Resumed Toprol 12.5mg daily; Cont. AC Will sign off today. Please call again as needed, thank you.
[2018-03-23] MEDS ORDERED: PT OWN MED DRAWER 7, Y5N ONE (09:08)
[2018-03-23 09:12] LABS: ACANTHOCYTES 1+; PLATELET ESTIMATE NORMAL
[2018-03-23] MEDS: metoPROLOL SUCCINATE 25 MG TAB.SR.24H (FP) PO SCH (09:14)
[2018-03-23] MEDS: DABIGATRAN ETEXILATE MESYLATE 150 MG CAPSULE PO SCH (09:15)
[2018-03-23] MEDS: POTASSIUM CHLORIDE ORAL LIQUID 20 MEQ/15 ML PO SCH (09:15)
[2018-03-23] MEDS: FUROSEMIDE 40 MG TABLET (FP) PO SCH (09:15)
[2018-03-23 10:49] VITALS: BP 113/63; PULSE 88; TEMP 98.5
--- NOTE | 2018-03-23 12:15 | DS ---
Physical Examination Vital Signs: Vital Signs Temperature 98.5 F 03/23/18 10:48 Pulse Rate 88 03/23/18 10:48 Respiratory Rate 18 03/23/18 10:48 Blood Pressure 113/63 03/23/18 10:48 O2 Sat by Pulse Oximetry (%) 98 03/23/18 10:47 Constitutional: Yes: No Distress Cardiovascular: Yes: Regular Rate and Rhythm Respiratory: Yes: Regular, CTA Bilaterally Gastrointestinal: Yes: Normal Bowel Sounds, Soft Labs: CBC, BMP 03/23/18 06:15 03/23/18 06:15 Discharge Summary Reason For Visit: PLEURAL EFFUSION,ACUTE ON [employer] DIAG [facility] Current Active Problems Acute on chronic diastolic (congestive) heart failure (Acute) Pleural effusion (Acute) Hospital Course: 82 y/o M with a h/o Afib s/p PPM on Pradaxa, HTN, CAD s/p CABG 10/2011, Chronic diastolic CHF, moderate MR presents to the ER with SOB. According to family members his SOB was progressive. Outpatient CT chest read right sided loculated pleural effusion for wc he was sent to the ER. He was treated for CHF and plural effusion and improved significantly. He is to f/u as outpt. Condition: Stable - Instructions Diet, Activity, Other Instructions: 2 gram sodium diet See Dr Cox in 1 week Referrals: Sergio Cox MD [Primary Care Provider] - Disposition: HOME - Home Medications Comprehensive Discharge Medication List: Ambulatory Orders Aspirin [ASA -] 81 mg PO DAILY 02/16/17 Atorvastatin Ca [Lipitor] 40 mg PO HS 02/16/17 Dabigatran Etexilate Mesylate [Pradaxa -] 150 mg PO BID 02/16/17 Levothyroxine [Synthroid -] 25 mcg PO DAILY 02/16/17 Tamsulosin HCl [Flomax -] 0.4 mg PO DAILY 02/16/17 Carbidopa/Levodopa 25/100 [Sinemet 25/100 -] 1 each PO TID #90 tablet 03/23/18 Docusate Sodium [Colace -] 100 mg PO TID #90 capsule 03/23/18 Furosemide [Lasix -] 40 mg PO DAILY #30 tablet 03/23/18 Metoprolol Succinate [Toprol XL -] 12.5 mg PO DAILY #30 tab.sr.24h 03/23/18 Potassium Chloride [Potassium Chloride Oral Liquid] 20 meq PO BID #60 cup
--- NOTE | 2018-03-23 14:19 | PN ---
Progress Note (short form) - Note Progress Note: NAD on RA. CXR: Resolved Left effusion / improving right effusion / atelectasis Intake & Output 03/20/18 03/21/18 03/22/18 03/23/18 23:59 23:59 23:59 23:59 Intake Total 1100 120 400 Output Total 100 Balance 1000 120 400 Weight 166 lb 8 oz 166 lb 165 lb 5 oz 161 lb 11.2 oz Last Vital Signs Temp Pulse Resp BP Pulse Ox 98.5 F 88 18 113/63 98 03/23/18 10:48 03/23/18 10:48 03/23/18 10:48 03/23/18 10:48 03/23/18 10:47 Active Medications Atorvastatin Calcium (Lipitor -) 40 mg PO HS [facility] Last Admin: 03/22/18 21:59 Dose: 40 mg Carbidopa/Levodopa (Sinemet 25/100 -) 1 each PO TID [facility] Last Admin: 03/23/18 05:40 Dose: 1 each Dabigatran (Pradaxa -) 150 mg PO BID [facility] Last Admin: 03/23/18 09:15 Dose: 150 mg Docusate Sodium (Colace -) 100 mg PO TID [facility] Last Admin: 03/23/18 05:40 Dose: 100 mg Furosemide (Lasix -) 40 mg PO DAILY [facility] Last Admin: 03/23/18 09:15 Dose: 40 mg Levothyroxine Sodium (Synthroid -) 25 mcg PO DAILY@0700 [facility] Last Admin: 03/23/18 06:02 Dose: 25 mcg Metoprolol Succinate (Toprol Xl -) 12.5 mg PO DAILY [facility] Last Admin: 03/23/18 09:14 Dose: 12.5 mg Potassium Chloride (Potassium Chloride Oral Liquid) 20 meq PO BID [facility] Last Admin: 03/23/18 09:15 Dose: 20 meq Tamsulosin HCl (Flomax -) 0.4 mg PO DAILY@0830 [facility] Last Admin: 03/23/18 07:51 Dose: 0.4 mg Constitutional: Yes: NAD Eyes: Yes: WNL HENT: Yes: WNL Neck: Yes: WNL Cardiovascular: Yes: Pulse Irregular, S1, S2 Respiratory: Yes: Few basilar rhonchi Gastrointestinal: Yes: Normal Bowel Sounds, Soft Extremities: Yes: WNL Edema: No Labs: Laboratory Results - last 24 hr 03/23/18 03/23/18 06:15 06:15 WBC 6.8 RBC 4.66 Hgb 12.9 Hct 38.6 MCV 82.8 MCH 27.7 MCHC 33.4 RDW 15.6 Plt Count 240 MPV 8.6 Neutrophils % No Result Required. Neutrophils % (Manual) 54.1 Band Neutrophils % 0.0 Lymphocytes % No Result Required. Lymphocytes % (Manual) 28.6 D Monocytes % (Manual) 8 Eosinophils % (Manual) 2.0 Basophils % (Manual) 2.0 Myelocytes % (Man) 1 Promyelocytes % (Man) 0 Blast Cells % (Manual) 0 Nucleated RBC % 0 Metamyelocytes 0 Platelet Estimate Normal Polychromasia 1+ Acanthocytes (Spur) 1+ Schistocytes 1+ Sodium 139 Potassium 4.5 Chloride 104 Carbon Dioxide 28 Anion Gap 7 L BUN 11 Creatinine 0.9 Creat Clearance w eGFR > 60 Random Glucose 117 H D Calcium 8.3 L Total Bilirubin 0.9 AST 20 ALT 6 L Alkaline Phosphatase 100 Total Protein 6.8 Albumin 3.4 Assessment/Plan Problem List - Problems (1) Acute on chronic diastolic (congestive) heart failure Code(s): I50.33 - ACUTE ON CHRONIC DIASTOLIC (CONGESTIVE) HEART FAILURE (2) Pleural effusion Code(s): J90 - PLEURAL EFFUSION, NOT ELSEWHERE CLASSIFIED (3) CAD (coronary artery disease) Code(s): I25.10 - ATHSCL HEART DISEASE OF [place] CORONARY ARTERY W/O ANG PCTRS (4) Chronic atrial fibrillation Code(s): I48.2 - CHRONIC ATRIAL FIBRILLATION (5) HLD (hyperlipidemia) Code(s): E78.5 - HYPERLIPIDEMIA, UNSPECIFIED (6) Pulmonary HTN Code(s): I27.2 - OTHER SECONDARY PULMONARY HYPERTENSION * DO NOT USE * Assessment/Plan Acute on Chronic Diastolic Heart Failure improving Pulmonary HTN CAD s/p CABG Atrial Fibrillation s/p PPM Pleural Effusion HTN Hypercholesterolemia Hypothyroidism Parkinsons - Lasix - Rate control per Cardiology - D/C planning Dr Melchor
== END 2018-03-23 15:34 | disposition home or self-care (01) | DRG 292 ==
LOC: JER 15:04 → JERBED 17:39 → J8W 20:37
PROVIDERS: ADMIT Internal Medicine; ATTEND Internal Medicine
DX: I11.0 Hypertensive heart disease with heart failure (principal); J98.11 Atelectasis; J90 Pleural effusion, not elsewhere classified; I50.33 Acute on chronic diastolic (congestive) heart failure; I27.20 Pulmonary hypertension, unspecified; I25.10 Atherosclerotic heart disease of native coronary artery without angina pectoris; Z95.1 Presence of aortocoronary bypass graft; E78.5 Hyperlipidemia, unspecified; E03.9 Hypothyroidism, unspecified; E87.6 Hypokalemia; E87.70 Fluid overload, unspecified; N40.0 Benign prostatic hyperplasia without lower urinary tract symptoms; I34.0 Nonrheumatic mitral (valve) insufficiency; G20 Parkinson's disease
CPT/HCPCS: 36415; 71046-TC-FY; 80048; 80053; 83735; 83880; 85025; 85610; 86850; 86900; 86901; 87040; 93005; 93010; 93306-TC; 94761; 97116-GP; 97161-GP; 99284-25

== ENCOUNTER 2022-03-25 10:41 | Inpatient (IN) | payer OTHER ==
[2022-03-25] MEDS ORDERED: SODIUM CHLORIDE 0.9% 500 ML INFUS.BAG IV ONE (12:20)
[2022-03-25] MEDS ORDERED: ALBUTEROL SO4 2.5/IPRATROPIUM 0.5 INH SOL 3 ML VIAL.NEB. NEB ONE ×2 (12:20→12:43)
[2022-03-25] MEDS ORDERED: ACETAMINOPHEN 1000 MG/100 ML BAG IVPB ONE (12:21)
[2022-03-25 12:43] LABS: HEMATOCRIT 33.7 % (35.4-49); HEMOGLOBIN 11.2 GM/dL (11.7-16.9); MCHC 33.2 g/dl (32.0-35.9); MEAN CELL VOLUME 84.4 fl (80-96); PLATELET COUNT 233 10^3/uL (134-434); RBC 3.99 M/mm3 (4.00-5.60); RDW 16.3 % (11.9-15.9); WHITE BLOOD COUNT 6.3 K/mm3 (4.0-10.0)
[2022-03-25] MEDS ORDERED: ACETAMINOPHEN INJECTION 100 ML IVPB ONE (12:43)
[2022-03-25 12:49] LABS: INR 2.16 (0.83-1.09)
[2022-03-25 12:52] LABS: ACTIVATED PTT 35.3 SECONDS (25.2-36.5)
[2022-03-25 13:04] LABS: CALCIUM 8.4 mg/dL (8.5-10.1)
[2022-03-25 13:05] LABS: ALBUMIN 2.6 g/dl (3.4-5.0); BLOOD UREA NITROGEN 13.9 mg/dL (7-18); MAGNESIUM 2.3 mg/dL (1.8-2.4)
[2022-03-25 13:08] LABS: CREATININE 0.8 mg/dL (0.55-1.3); LACTIC ACID 2.2 mmol/L (0.4-2.0); PHOSPHOROUS 3.1 mg/dL (2.5-4.9)
[2022-03-25 13:09] LABS: BILIRUBIN,TOTAL 0.9 mg/dL (0.2-1)
[2022-03-25 13:10] LABS: TOT PROT 5.9 g/dl (6.4-8.2)
[2022-03-25] MEDS ORDERED: CEFTRIAXONE 1 GM in DEXTROSE 5%-WATER - 100 ML IVPB ONE (13:15)
[2022-03-25] MEDS ORDERED: AZITHROMYCIN IVPB 500 MG in DEXTROSE 5%-WATER - 250 ML IVPB ONE (13:15)
[2022-03-25 13:23] LABS: ANISOCYTOSIS 0; MACROCYTOSIS 0; TARGET CELLS 0
[2022-03-25] MEDS ORDERED: AZITHROMYCIN IVPB 500 MG/250 ML BAG IVPB ONE (13:27)
[2022-03-25] MEDS ORDERED: CEFTRIAXONE 1 GM/50 ML BAG ONE (13:27)
[2022-03-25] MEDS: ATORVASTATIN CA 40 MG TABLET (FP) PO SCH (21:57)
[2022-03-25] MEDS: CARBIDOPA/LEVODOPA 25/100 TABLET (FP) PO SCH (21:57)
[2022-03-25 22:53] LABS: EPI CELLS 4 /uL (0-25.1); HYALINE CASTS 0 /uL (0-3.1); PH,URINE 6.5 (5.0-8.0); URINE APPEARANCE CLEAR; URINE BACTERIA 7 /uL (0-1359); URINE BILIRUBIN NEGATIVE (NEGATIVE); URINE COLOR YELLOW; URINE GLUCOSE (UA) NEGATIVE (NEGATIVE); URINE KETONE NEGATIVE (NEGATIVE); URINE LEUK ESTERASE NEGATIVE (NEGATIVE); URINE NITRITE NEGATIVE (NEGATIVE); URINE PROTEIN NEGATIVE (NEGATIVE); URINE RBC 122 /uL (0-23.9); URINE WBC 9 /uL (0-25.8)
[2022-03-26] MEDS: CARBIDOPA/LEVODOPA 25/100 TABLET (FP) PO SCH ×3 (06:09→22:39)
[2022-03-26] MEDS: LEVOTHYROXINE NA 25 MCG TABLET (FP) PO SCH (06:09)
[2022-03-26 08:40] LABS: HEMATOCRIT 30.4 % (35.4-49); HEMOGLOBIN 10.1 GM/dL (11.7-16.9); MCH 28.1 pg (25.7-33.7); MCHC 33.4 g/dl (32.0-35.9); MEAN CELL VOLUME 84.2 fl (80-96); MEAN PLT VOLUME 7.9 fl (7.5-11.1); PLATELET COUNT 220 10^3/uL (134-434); WHITE BLOOD COUNT 5.3 K/mm3 (4.0-10.0)
[2022-03-26 09:24] LABS: CHLORIDE 108 mmol/L (98-107); SODIUM 141 mmol/L (136-145)
[2022-03-26 09:33] LABS: ALBUMIN 2.3 g/dl (3.4-5.0); ANION GAP 7 MMOL/L (8-16); CO2 25 mmol/L (21-32); GLUCOSE,RANDOM 116 mg/dL (74-106)
[2022-03-26 09:35] LABS: CREATININE 0.6 mg/dL (0.55-1.3)
[2022-03-26 09:36] LABS: BILIRUBIN,TOTAL 0.8 mg/dL (0.2-1); SGOT/AST 11 U/L (15-37); TOT PROT 5.2 g/dl (6.4-8.2)
[2022-03-26 09:40] LABS: ALK PHOS 144 U/L (45-117); SGPT/ALT < 6 U/L (13-61)
[2022-03-26 09:43] LABS: ANISOCYTOSIS 3+; MACROCYTOSIS 0
[2022-03-26] MEDS ORDERED: DEXTROSE 5%-WATER 100 ML IVPB ONE ×2 (09:50→16:53)
[2022-03-26] MEDS ORDERED: MEROPENEM 1 GM VIAL (RESTRICTED TO ID) IVPB ONE ×2 (09:50→16:52)
[2022-03-26] MEDS ORDERED: AZITHROMYCIN IVPB 250 MG in DEXTROSE 5%-WATER - 250 ML IVPB SCH (10:00)
[2022-03-26] MEDS ORDERED: CEFTRIAXONE 1 GM in DEXTROSE 5%-WATER - 50 ML IVPB SCH (10:00)
[2022-03-26] MEDS ORDERED: PRAMIPEXOLE DIHYDROCHLORIDE 0.125 MG TABLET PO SCH (10:00)
[2022-03-26] MEDS: MEROPENEM 1 GM in DEXTROSE 5%-WATER 100 ML IVPB SCH ×2 (10:41→17:23)
[2022-03-26] MEDS: FUROSEMIDE 20 MG TABLET (FP) PO SCH (10:41)
[2022-03-26] MEDS: metoPROLOL SUCCINATE 25 MG TAB.SR.24H (FP) PO SCH (10:41)
[2022-03-26] MEDS: TAMSULOSIN HCL 0.4 MG CAP PO SCH (10:41)
[2022-03-26] MEDS: ASPIRIN 81 MG CHEWABLE TABLETS PO SCH (10:41)
[2022-03-26] MEDS: VANCOMYCIN PREMIX 1.5 GM 1,500 MG/300 ML BAG IVPB SCH (11:56)
[2022-03-26] MEDS: ATORVASTATIN CA 40 MG TABLET (FP) PO SCH (22:39)
[2022-03-27] MEDS ORDERED: MEROPENEM 1 GM VIAL (RESTRICTED TO ID) IVPB ONE ×3 (02:57→17:36)
[2022-03-27] MEDS ORDERED: DEXTROSE 5%-WATER 100 ML IVPB ONE ×3 (02:58→17:36)
[2022-03-27] MEDS: MEROPENEM 1 GM in DEXTROSE 5%-WATER 100 ML IVPB SCH ×3 (03:01→18:42)
[2022-03-27] MEDS: CARBIDOPA/LEVODOPA 25/100 TABLET (FP) PO SCH ×3 (05:52→21:53)
[2022-03-27] MEDS: LEVOTHYROXINE NA 25 MCG TABLET (FP) PO SCH (06:35)
[2022-03-27 09:31] LABS: HEMATOCRIT 32.4 % (35.4-49); HEMOGLOBIN 10.5 GM/dL (11.7-16.9); MCH 27.2 pg (25.7-33.7); MCHC 32.4 g/dl (32.0-35.9); MEAN CELL VOLUME 84.2 fl (80-96); MEAN PLT VOLUME 7.9 fl (7.5-11.1); PLATELET COUNT 260 10^3/uL (134-434); RBC 3.85 M/mm3 (4.00-5.60); WHITE BLOOD COUNT 5.5 K/mm3 (4.0-10.0)
[2022-03-27] MEDS: FUROSEMIDE 20 MG TABLET (FP) PO SCH (09:46)
[2022-03-27] MEDS: TAMSULOSIN HCL 0.4 MG CAP PO SCH (09:46)
[2022-03-27 09:58] LABS: ALBUMIN 2.4 g/dl (3.4-5.0); CALCIUM 8.1 mg/dL (8.5-10.1)
[2022-03-27 10:00] LABS: CREATININE 0.6 mg/dL (0.55-1.3)
[2022-03-27 10:01] LABS: BILIRUBIN,TOTAL 0.7 mg/dL (0.2-1)
[2022-03-27 10:02] LABS: TOT PROT 5.5 g/dl (6.4-8.2)
[2022-03-27 10:29] LABS: ANISOCYTOSIS 2+; MACROCYTOSIS 0
[2022-03-27] MEDS: VANCOMYCIN PREMIX 1.5 GM 1,500 MG/300 ML BAG IVPB SCH (11:42)
[2022-03-27 11:52] VITALS: BMI 19.6
[2022-03-27] MEDS: metoPROLOL SUCCINATE 25 MG TAB.SR.24H (FP) PO SCH (13:00)
[2022-03-27] MEDS: PRAMIPEXOLE DIHYDROCHLORIDE 0.125 MG TABLET PO SCH ×2 (15:25→21:53)
[2022-03-27] MEDS: ASPIRIN 81 MG CHEWABLE TABLETS PO SCH (15:29)
[2022-03-27] MEDS: ATORVASTATIN CA 40 MG TABLET (FP) PO SCH (21:53)
[2022-03-27] MEDS ORDERED: HEPARIN NA (PORCINE) 5,000 UNITS/ML 1ML VIAL SQ SCH (22:00)
[2022-03-28] MEDS ORDERED: MEROPENEM 1 GM VIAL (RESTRICTED TO ID) IVPB ONE ×3 (00:36→17:16)
[2022-03-28] MEDS ORDERED: DEXTROSE 5%-WATER 100 ML IVPB ONE ×3 (00:36→17:16)
[2022-03-28] MEDS: MEROPENEM 1 GM in DEXTROSE 5%-WATER 100 ML IVPB SCH ×3 (01:52→17:27)
[2022-03-28] MEDS: LEVOTHYROXINE NA 25 MCG TABLET (FP) PO SCH (06:17)
[2022-03-28] MEDS: CARBIDOPA/LEVODOPA 25/100 TABLET (FP) PO SCH ×3 (06:18→21:45)
[2022-03-28] MEDS: VANCOMYCIN PREMIX 1.5 GM 1,500 MG/300 ML BAG IVPB SCH (08:39)
[2022-03-28] MEDS: APIXABAN 5 MG TABLET PO SCH ×2 (09:09→21:39)
[2022-03-28] MEDS: ASPIRIN 81 MG CHEWABLE TABLETS PO SCH (09:09)
[2022-03-28] MEDS: metoPROLOL SUCCINATE 25 MG TAB.SR.24H (FP) PO SCH (09:57)
[2022-03-28] MEDS: FUROSEMIDE 20 MG TABLET (FP) PO SCH (09:57)
[2022-03-28] MEDS: TAMSULOSIN HCL 0.4 MG CAP PO SCH (09:57)
[2022-03-28] MEDS: PRAMIPEXOLE DIHYDROCHLORIDE 0.125 MG TABLET PO SCH ×2 (09:58→21:46)
[2022-03-28] MEDS: ATORVASTATIN CA 40 MG TABLET (FP) PO SCH (21:46)
[2022-03-29] MEDS ORDERED: DEXTROSE 5%-WATER 100 ML IVPB ONE ×3 (01:19→17:00)
[2022-03-29] MEDS ORDERED: MEROPENEM 1 GM VIAL (RESTRICTED TO ID) IVPB ONE ×3 (01:19→17:00)
[2022-03-29] MEDS: MEROPENEM 1 GM in DEXTROSE 5%-WATER 100 ML IVPB SCH ×3 (01:52→17:02)
[2022-03-29] MEDS: CARBIDOPA/LEVODOPA 25/100 TABLET (FP) PO SCH ×3 (06:32→21:23)
[2022-03-29] MEDS: LEVOTHYROXINE NA 25 MCG TABLET (FP) PO SCH (06:32)
[2022-03-29] MEDS: TAMSULOSIN HCL 0.4 MG CAP PO SCH (08:50)
[2022-03-29] MEDS: ASPIRIN 81 MG CHEWABLE TABLETS PO SCH (10:05)
[2022-03-29] MEDS: FUROSEMIDE 20 MG TABLET (FP) PO SCH (10:05)
[2022-03-29] MEDS: metoPROLOL SUCCINATE 25 MG TAB.SR.24H (FP) PO SCH (10:05)
[2022-03-29] MEDS: PRAMIPEXOLE DIHYDROCHLORIDE 0.125 MG TABLET PO SCH ×2 (10:05→21:23)
[2022-03-29] MEDS: APIXABAN 5 MG TABLET PO SCH ×2 (10:06→21:22)
[2022-03-29] MEDS: VANCOMYCIN PREMIX 1.5 GM 1,500 MG/300 ML BAG IVPB SCH (13:04)
[2022-03-29] MEDS: FINASTERIDE 5 MG TABLET (FP) PO SCH (13:22)
[2022-03-29] MEDS: ATORVASTATIN CA 40 MG TABLET (FP) PO SCH (21:23)
[2022-03-30] MEDS ORDERED: MEROPENEM 1 GM VIAL (RESTRICTED TO ID) IVPB ONE ×3 (01:52→17:56)
[2022-03-30] MEDS ORDERED: DEXTROSE 5%-WATER 100 ML IVPB ONE ×3 (01:52→17:56)
[2022-03-30] MEDS: MEROPENEM 1 GM in DEXTROSE 5%-WATER 100 ML IVPB SCH ×3 (01:55→18:11)
[2022-03-30] MEDS: CARBIDOPA/LEVODOPA 25/100 TABLET (FP) PO SCH ×3 (06:22→21:15)
[2022-03-30] MEDS: LEVOTHYROXINE NA 25 MCG TABLET (FP) PO SCH (06:22)
[2022-03-30] MEDS: VANCOMYCIN PREMIX 1.5 GM 1,500 MG/300 ML BAG IVPB SCH (08:47)
[2022-03-30] MEDS: PRAMIPEXOLE DIHYDROCHLORIDE 0.125 MG TABLET PO SCH ×2 (09:37→21:15)
[2022-03-30] MEDS: FUROSEMIDE 20 MG TABLET (FP) PO SCH (09:38)
[2022-03-30] MEDS: FINASTERIDE 5 MG TABLET (FP) PO SCH (09:38)
[2022-03-30] MEDS: VALSARTAN 40 MG TABLET PO SCH (09:38)
[2022-03-30] MEDS: metoPROLOL SUCCINATE 25 MG TAB.SR.24H (FP) PO SCH (09:38)
[2022-03-30] MEDS: APIXABAN 5 MG TABLET PO SCH ×2 (09:40→21:15)
[2022-03-30] MEDS: ATORVASTATIN CA 40 MG TABLET (FP) PO SCH (21:15)
[2022-03-31] MEDS ORDERED: MEROPENEM 1 GM VIAL (RESTRICTED TO ID) IVPB ONE ×3 (00:25→18:20)
[2022-03-31] MEDS ORDERED: DEXTROSE 5%-WATER 100 ML IVPB ONE ×3 (00:26→18:20)
[2022-03-31] MEDS: MEROPENEM 1 GM in DEXTROSE 5%-WATER 100 ML IVPB SCH ×3 (01:03→18:27)
[2022-03-31] MEDS: LEVOTHYROXINE NA 25 MCG TABLET (FP) PO SCH (06:16)
[2022-03-31] MEDS: CARBIDOPA/LEVODOPA 25/100 TABLET (FP) PO SCH ×3 (06:16→22:36)
[2022-03-31] MEDS: VALSARTAN 40 MG TABLET PO SCH (10:08)
[2022-03-31] MEDS: PRAMIPEXOLE DIHYDROCHLORIDE 0.125 MG TABLET PO SCH ×2 (10:08→22:37)
[2022-03-31] MEDS: FINASTERIDE 5 MG TABLET (FP) PO SCH (10:08)
[2022-03-31] MEDS: FUROSEMIDE 20 MG TABLET (FP) PO SCH (10:09)
[2022-03-31] MEDS: VANCOMYCIN PREMIX 1.5 GM 1,500 MG/300 ML BAG IVPB SCH (10:09)
[2022-03-31] MEDS: metoPROLOL SUCCINATE 25 MG TAB.SR.24H (FP) PO SCH (10:10)
[2022-03-31] MEDS: APIXABAN 5 MG TABLET PO SCH ×2 (11:04→22:36)
[2022-03-31] MEDS ORDERED: SODIUM CHLORIDE 250 ML IV ONE (14:00)
[2022-03-31] MEDS ORDERED: DEXTROSE 5%-NORMAL SALINE 1,000 ML IV SCH (15:45)
[2022-03-31] MEDS: ATORVASTATIN CA 40 MG TABLET (FP) PO SCH (22:36)
[2022-04-01] MEDS ORDERED: DEXTROSE 5%-WATER 100 ML IVPB ONE ×3 (00:58→17:22)
[2022-04-01] MEDS ORDERED: MEROPENEM 1 GM VIAL (RESTRICTED TO ID) IVPB ONE ×3 (00:58→17:22)
[2022-04-01] MEDS: MEROPENEM 1 GM in DEXTROSE 5%-WATER 100 ML IVPB SCH ×3 (02:08→17:28)
[2022-04-01] MEDS: LEVOTHYROXINE NA 25 MCG TABLET (FP) PO SCH (06:42)
[2022-04-01] MEDS: CARBIDOPA/LEVODOPA 25/100 TABLET (FP) PO SCH ×3 (06:42→22:13)
[2022-04-01 09:46] LABS: HEMATOCRIT 37.4 % (35.4-49); MEAN CELL VOLUME 84.3 fl (80-96); MEAN PLT VOLUME 7.9 fl (7.5-11.1); PLATELET COUNT 330 10^3/uL (134-434); RBC 4.43 M/mm3 (4.00-5.60); RDW 15.9 % (11.9-15.9); WHITE BLOOD COUNT 6.9 K/mm3 (4.0-10.0)
[2022-04-01] MEDS: VALSARTAN 40 MG TABLET PO SCH (09:47)
[2022-04-01] MEDS: metoPROLOL SUCCINATE 25 MG TAB.SR.24H (FP) PO SCH (09:47)
[2022-04-01] MEDS: PRAMIPEXOLE DIHYDROCHLORIDE 0.125 MG TABLET PO SCH ×2 (09:48→22:12)
[2022-04-01] MEDS: APIXABAN 5 MG TABLET PO SCH ×2 (09:50→22:13)
[2022-04-01] MEDS: FINASTERIDE 5 MG TABLET (FP) PO SCH (09:51)
[2022-04-01 10:07] LABS: BLOOD UREA NITROGEN 11.2 mg/dL (7-18); CALCIUM 8.4 mg/dL (8.5-10.1)
[2022-04-01 10:08] LABS: ALBUMIN 2.6 g/dl (3.4-5.0)
[2022-04-01 10:11] LABS: CREATININE 0.6 mg/dL (0.55-1.3)
[2022-04-01 10:13] LABS: BILIRUBIN,TOTAL 0.8 mg/dL (0.2-1); TOT PROT 6.2 g/dl (6.4-8.2)
[2022-04-01] MEDS: VANCOMYCIN PREMIX 1.5 GM 1,500 MG/300 ML BAG IVPB SCH (10:26)
[2022-04-01 10:31] LABS: ANISOCYTOSIS 0; HELMET CELLS 0; HOWELL-JOLLY BODIES 0; MACROCYTOSIS 0; OVALOCYTE 0; ROULEAU 0; SICKELED CELLS 0; TARGET CELLS 0; TEAR DROP CELLS 0; TOXIC GRANULATION 0
[2022-04-01] MEDS: ATORVASTATIN CA 40 MG TABLET (FP) PO SCH (22:12)
[2022-04-02] MEDS ORDERED: DEXTROSE 5%-WATER 100 ML IVPB ONE ×3 (01:03→13:59)
[2022-04-02] MEDS ORDERED: MEROPENEM 1 GM VIAL (RESTRICTED TO ID) IVPB ONE ×2 (01:03→09:53)
[2022-04-02] MEDS: MEROPENEM 1 GM in DEXTROSE 5%-WATER 100 ML IVPB SCH (01:32)
[2022-04-02] MEDS: LEVOTHYROXINE NA 25 MCG TABLET (FP) PO SCH (06:21)
[2022-04-02] MEDS: CARBIDOPA/LEVODOPA 25/100 TABLET (FP) PO SCH ×3 (06:21→21:36)
[2022-04-02] MEDS ORDERED: POLYETHYLENE GLYCOL (HEALTHYLAX) 3350 17 GM PACKET PO ONE (10:15)
[2022-04-02] MEDS: FINASTERIDE 5 MG TABLET (FP) PO SCH (10:32)
[2022-04-02] MEDS: PRAMIPEXOLE DIHYDROCHLORIDE 0.125 MG TABLET PO SCH ×2 (10:32→21:36)
[2022-04-02] MEDS: VALSARTAN 40 MG TABLET PO SCH (10:33)
[2022-04-02] MEDS: APIXABAN 5 MG TABLET PO SCH ×2 (10:33→21:36)
[2022-04-02] MEDS: metoPROLOL SUCCINATE 25 MG TAB.SR.24H (FP) PO SCH (10:34)
[2022-04-02] MEDS: metroNIDAZOLE 250 MG TABLET PO SCH ×2 (14:01→21:36)
[2022-04-02] MEDS: CEFTRIAXONE 2 GM in DEXTROSE 5%-WATER 2 GM/100 ML BAG IVPB SCH (14:02)
[2022-04-02] MEDS: ATORVASTATIN CA 40 MG TABLET (FP) PO SCH (21:36)
[2022-04-03] MEDS: CARBIDOPA/LEVODOPA 25/100 TABLET (FP) PO SCH ×2 (06:06→15:45)
[2022-04-03] MEDS: LEVOTHYROXINE NA 25 MCG TABLET (FP) PO SCH (06:06)
[2022-04-03] MEDS: metroNIDAZOLE 250 MG TABLET PO SCH ×2 (06:06→15:45)
[2022-04-03] MEDS ORDERED: DEXTROSE 5%-WATER 100 ML IVPB ONE (09:16)
[2022-04-03] MEDS: metoPROLOL SUCCINATE 25 MG TAB.SR.24H (FP) PO SCH (09:30)
[2022-04-03] MEDS: VALSARTAN 40 MG TABLET PO SCH (09:30)
[2022-04-03] MEDS: FINASTERIDE 5 MG TABLET (FP) PO SCH (09:31)
[2022-04-03] MEDS: CEFTRIAXONE 2 GM in DEXTROSE 5%-WATER 2 GM/100 ML BAG IVPB SCH (09:31)
[2022-04-03] MEDS: PRAMIPEXOLE DIHYDROCHLORIDE 0.125 MG TABLET PO SCH (09:31)
[2022-04-03] MEDS: APIXABAN 5 MG TABLET PO SCH (09:31)
[2022-04-03 18:33] VITALS: BP 118/72; PULSE 111; TEMP 98
== END 2022-04-03 19:42 | disposition home health service (06) | DRG 193 ==
LOC: JER 10:41 → JERBED 13:55 → J5S 16:46
PROVIDERS: ADMIT Internal Medicine; ATTEND Internal Medicine
PROC: 05HB33Z Insertion of Infusion Device into Right Basilic Vein, Percutaneous Approach (ICD-10-PCS; principal; 2022-04-03)
PROC: B51MZZA Fluoroscopy of Right Upper Extremity Veins, Guidance (ICD-10-PCS; 2022-04-03)
DX: J18.9 Pneumonia, unspecified organism (principal); E43 Unspecified severe protein-calorie malnutrition; J90 Pleural effusion, not elsewhere classified; I48.20 Chronic atrial fibrillation, unspecified; Z68.1 Body mass index [BMI] 19.9 or less, adult; G20 Parkinson's disease; E03.9 Hypothyroidism, unspecified; J44.9 Chronic obstructive pulmonary disease, unspecified; Z95.1 Presence of aortocoronary bypass graft; I25.119 Atherosclerotic heart disease of native coronary artery with unspecified angina pectoris; I11.9 Hypertensive heart disease without heart failure; N40.0 Benign prostatic hyperplasia without lower urinary tract symptoms; E78.5 Hyperlipidemia, unspecified
CPT/HCPCS: 36415; 36569; 71045-TC-FY; 71250-TC; 71260-TC; 74230-TC-FY; 77001-TC-FY; 80053; 80061; 81003; 83036; 83605; 83735; 83880; 84100; 84443; 84484; 85025; 85610; 85730; 87040; 87086; 92611-GN; 93005; 93010; 93306-TC; 97116-GP; 97162-GP; 99285-25; C1751; C9803-CS; G0480; J1644; Q9967; U0003; U0005

== ENCOUNTER 2022-06-12 10:10 | Inpatient (IN) | payer OTHER ==
[2022-06-12 10:49] LABS: HEMATOCRIT 35.8 % (35.4-49); HEMOGLOBIN 11.8 GM/dL (11.7-16.9); MCH 27.5 pg (25.7-33.7); MEAN CELL VOLUME 83.4 fl (80-96); MEAN PLT VOLUME 7.6 fl (7.5-11.1); PLATELET COUNT 209 10^3/uL (134-434); RBC 4.29 M/mm3 (4.00-5.60); RDW 18.9 % (11.9-15.9); VENOUS BASE EXCESS -3.7 mmol/L (-2-2); VENOUS O2 SATURATION 91.2 % (70-80); VENOUS PCO2 43.2 mmHg (38-52); VENOUS PH 7.328 (7.310-7.410); WHITE BLOOD COUNT 8.3 K/mm3 (4.0-10.0)
[2022-06-12 10:56] LABS: INR 1.58 (0.83-1.09); PROTHROMBIN TIME (PATIENT) 18.2 SEC (9.7-13.0)
[2022-06-12 10:58] LABS: ACTIVATED PTT 29.3 SECONDS (25.2-36.5)
[2022-06-12 11:15] LABS: CALCIUM 8.4 mg/dL (8.5-10.1)
[2022-06-12 11:16] LABS: ALBUMIN 2.9 g/dl (3.4-5.0); BLOOD UREA NITROGEN 28.4 mg/dL (7-18); MAGNESIUM 2.2 mg/dL (1.8-2.4)
[2022-06-12 11:19] LABS: CREATININE 1.2 mg/dL (0.55-1.3)
[2022-06-12 11:20] LABS: BILIRUBIN,TOTAL 0.6 mg/dL (0.2-1)
[2022-06-12] MEDS ORDERED: SODIUM CHLORIDE 0.9% 500 ML INFUS.BAG IV ONE (12:30)
[2022-06-12 13:06] LABS: ANISOCYTOSIS 2+; MACROCYTOSIS 0; OVALOCYTE 2+; TARGET CELLS 2+
[2022-06-12] MEDS ORDERED: ATORVASTATIN CA 40 MG TABLET (FP) ONE (21:22)
[2022-06-12] MEDS ORDERED: CARBIDOPA/LEVODOPA 25/100 TABLET (FP) ONE (21:22)
[2022-06-12] MEDS ORDERED: APIXABAN 5 MG TABLET ONE (21:22)
[2022-06-12] MEDS: PRAMIPEXOLE DIHYDROCHLORIDE 0.125 MG TABLET PO SCH (21:54)
[2022-06-12] MEDS: INSULIN SLIDING SCALE (NOVOLOG) 1 VIAL SQ SCH (21:54)
[2022-06-12] MEDS: APIXABAN 5 MG TABLET PO SCH (21:54)
[2022-06-12] MEDS: ATORVASTATIN CA 40 MG TABLET (FP) PO SCH (21:54)
[2022-06-12] MEDS: CARBIDOPA/LEVODOPA 25/100 TABLET (FP) PO SCH (23:47)
[2022-06-13 01:58] VITALS: BMI 20.5
[2022-06-13] MEDS: INSULIN SLIDING SCALE (NOVOLOG) 1 VIAL SQ SCH ×4 (06:12→21:59)
[2022-06-13] MEDS: CARBIDOPA/LEVODOPA 25/100 TABLET (FP) PO SCH ×4 (06:59→21:22)
[2022-06-13 07:21] LABS: HEMATOCRIT 35.6 % (35.4-49); HEMOGLOBIN 11.5 GM/dL (11.7-16.9); MCH 26.8 pg (25.7-33.7); MCHC 32.4 g/dl (32.0-35.9); MEAN CELL VOLUME 82.9 fl (80-96); MEAN PLT VOLUME 8.4 fl (7.5-11.1); PLATELET COUNT 205 10^3/uL (134-434); RDW 18.7 % (11.9-15.9); WHITE BLOOD COUNT 9.3 K/mm3 (4.0-10.0)
[2022-06-13 07:48] LABS: CALCIUM 8.7 mg/dL (8.5-10.1)
[2022-06-13 07:51] LABS: CREATININE 1.1 mg/dL (0.55-1.3)
[2022-06-13 07:53] LABS: BILIRUBIN,TOTAL 0.9 mg/dL (0.2-1); TOT PROT 6.1 g/dl (6.4-8.2)
[2022-06-13 08:46] LABS: ANISOCYTOSIS 0; MACROCYTOSIS 0
[2022-06-13] MEDS: VALSARTAN 40 MG TABLET PO SCH (09:59)
[2022-06-13] MEDS: APIXABAN 5 MG TABLET PO SCH ×2 (09:59→21:22)
[2022-06-13] MEDS: FINASTERIDE 5 MG TABLET (FP) PO SCH (09:59)
[2022-06-13] MEDS: PRAMIPEXOLE DIHYDROCHLORIDE 0.125 MG TABLET PO SCH ×2 (09:59→21:22)
[2022-06-13] MEDS: ASPIRIN 81 MG CHEWABLE TABLETS PO SCH (09:59)
[2022-06-13] MEDS: metoPROLOL SUCCINATE 25 MG TAB.SR.24H (FP) PO SCH (09:59)
[2022-06-13] MEDS: LEVOTHYROXINE NA 25 MCG TABLET (FP) PO SCH (10:13)
[2022-06-13] MEDS ORDERED: POTASSIUM CHLORIDE TABS 20 MEQ TABLET.ER (FP) PO ONE (17:05)
[2022-06-13 17:24] LABS: EPI CELLS 1 /uL (0-25.1); HYALINE CASTS 1 /uL (0-3.1); URINE APPEARANCE CLEAR; URINE BACTERIA 1110 /uL (0-1359); URINE BILIRUBIN NEGATIVE (NEGATIVE); URINE COLOR YELLOW; URINE GLUCOSE (UA) NEGATIVE (NEGATIVE); URINE KETONE NEGATIVE (NEGATIVE); URINE LEUK ESTERASE 1+ (NEGATIVE); URINE NITRITE NEGATIVE (NEGATIVE); URINE PROTEIN NEGATIVE (NEGATIVE); URINE RBC 11 /uL (0-23.9); URINE UROBILINOGEN 0.2 mg/dL (0.2-1.0); URINE WBC 127 /uL (0-25.8)
[2022-06-13] MEDS: ATORVASTATIN CA 40 MG TABLET (FP) PO SCH (21:22)
[2022-06-14] MEDS: INSULIN SLIDING SCALE (NOVOLOG) 1 VIAL SQ SCH ×4 (06:10→22:00)
[2022-06-14] MEDS: CARBIDOPA/LEVODOPA 25/100 TABLET (FP) PO SCH ×3 (06:10→21:47)
[2022-06-14] MEDS: LEVOTHYROXINE NA 25 MCG TABLET (FP) PO SCH (06:11)
[2022-06-14 09:05] LABS: HEMATOCRIT 34.6 % (35.4-49); HEMOGLOBIN 11.4 GM/dL (11.7-16.9); MCHC 32.9 g/dl (32.0-35.9); MEAN CELL VOLUME 82.2 fl (80-96); PLATELET COUNT 180 10^3/uL (134-434); RBC 4.21 M/mm3 (4.00-5.60); RDW 18.8 % (11.9-15.9); WHITE BLOOD COUNT 7.8 K/mm3 (4.0-10.0)
[2022-06-14] MEDS: PRAMIPEXOLE DIHYDROCHLORIDE 0.125 MG TABLET PO SCH ×2 (09:20→21:47)
[2022-06-14] MEDS: VALSARTAN 40 MG TABLET PO SCH (09:20)
[2022-06-14] MEDS: ASPIRIN 81 MG CHEWABLE TABLETS PO SCH (09:20)
[2022-06-14] MEDS: APIXABAN 5 MG TABLET PO SCH ×2 (09:20→21:46)
[2022-06-14] MEDS: metoPROLOL SUCCINATE 25 MG TAB.SR.24H (FP) PO SCH (09:20)
[2022-06-14] MEDS: FINASTERIDE 5 MG TABLET (FP) PO SCH (09:21)
[2022-06-14 09:30] LABS: ALBUMIN 2.7 g/dl (3.4-5.0); BLOOD UREA NITROGEN 26.1 mg/dL (7-18); CALCIUM 8.5 mg/dL (8.5-10.1)
[2022-06-14 09:33] LABS: CREATININE 0.9 mg/dL (0.55-1.3)
[2022-06-14 09:34] LABS: BILIRUBIN,TOTAL 0.9 mg/dL (0.2-1)
[2022-06-14 09:35] LABS: TOT PROT 5.9 g/dl (6.4-8.2)
[2022-06-14 10:45] LABS: ANISOCYTOSIS 1+; MACROCYTOSIS 0; TARGET CELLS 1+
[2022-06-14] MEDS: ATORVASTATIN CA 40 MG TABLET (FP) PO SCH (21:46)
[2022-06-15] MEDS: INSULIN SLIDING SCALE (NOVOLOG) 1 VIAL SQ SCH ×4 (06:25→21:32)
[2022-06-15] MEDS: CARBIDOPA/LEVODOPA 25/100 TABLET (FP) PO SCH ×3 (06:25→21:27)
[2022-06-15] MEDS: LEVOTHYROXINE NA 25 MCG TABLET (FP) PO SCH (06:25)
[2022-06-15 08:17] LABS: HEMATOCRIT 37.2 % (35.4-49); HEMOGLOBIN 12.6 GM/dL (11.7-16.9); MCH 27.5 pg (25.7-33.7); MCHC 33.8 g/dl (32.0-35.9); MEAN CELL VOLUME 81.3 fl (80-96); MEAN PLT VOLUME 8.3 fl (7.5-11.1); PLATELET COUNT 194 10^3/uL (134-434); RBC 4.58 M/mm3 (4.00-5.60); RDW 18.7 % (11.9-15.9); WHITE BLOOD COUNT 7.6 K/mm3 (4.0-10.0)
[2022-06-15 08:27] LABS: CALCIUM 8.5 mg/dL (8.5-10.1)
[2022-06-15 08:28] LABS: BLOOD UREA NITROGEN 21.5 mg/dL (7-18)
[2022-06-15 08:30] LABS: CREATININE 0.8 mg/dL (0.55-1.3)
[2022-06-15 08:32] LABS: TOT PROT 6.4 g/dl (6.4-8.2)
[2022-06-15] MEDS: FINASTERIDE 5 MG TABLET (FP) PO SCH (09:42)
[2022-06-15] MEDS: APIXABAN 5 MG TABLET PO SCH ×2 (09:42→21:26)
[2022-06-15] MEDS: VALSARTAN 40 MG TABLET PO SCH (09:42)
[2022-06-15] MEDS: PRAMIPEXOLE DIHYDROCHLORIDE 0.125 MG TABLET PO SCH ×2 (09:42→21:26)
[2022-06-15] MEDS: metoPROLOL SUCCINATE 25 MG TAB.SR.24H (FP) PO SCH (09:42)
[2022-06-15 11:29] LABS: ANISOCYTOSIS 1+; MACROCYTOSIS 0; PLATELET ESTIMATE NORMAL
[2022-06-15] MEDS: ATORVASTATIN CA 40 MG TABLET (FP) PO SCH (21:26)
[2022-06-16] MEDS: CARBIDOPA/LEVODOPA 25/100 TABLET (FP) PO SCH ×2 (06:32→13:52)
[2022-06-16] MEDS: INSULIN SLIDING SCALE (NOVOLOG) 1 VIAL SQ SCH ×2 (06:32→11:32)
[2022-06-16] MEDS: LEVOTHYROXINE NA 25 MCG TABLET (FP) PO SCH (06:33)
[2022-06-16] MEDS: APIXABAN 5 MG TABLET PO SCH (09:18)
[2022-06-16] MEDS: FINASTERIDE 5 MG TABLET (FP) PO SCH (09:18)
[2022-06-16] MEDS: PRAMIPEXOLE DIHYDROCHLORIDE 0.125 MG TABLET PO SCH (09:18)
[2022-06-16] MEDS: metoPROLOL SUCCINATE 25 MG TAB.SR.24H (FP) PO SCH (09:18)
[2022-06-16] MEDS: VALSARTAN 40 MG TABLET PO SCH (09:18)
[2022-06-16 09:23] VITALS: RESP 18
[2022-06-16 13:57] VITALS: BP 103/53; PULSE 90; TEMP 98.4
== END 2022-06-16 17:14 | disposition home or self-care (01) | DRG 641 ==
LOC: JER 10:10 → JERBED 12:54 → OBSVTOIN 21:13 → J4W 22:28
PROVIDERS: ADMIT Internal Medicine; ATTEND Internal Medicine
DX: E86.0 Dehydration (principal); I48.20 Chronic atrial fibrillation, unspecified; R55 Syncope and collapse; I27.20 Pulmonary hypertension, unspecified; E11.9 Type 2 diabetes mellitus without complications; I11.0 Hypertensive heart disease with heart failure; I50.9 Heart failure, unspecified; E03.9 Hypothyroidism, unspecified; J44.9 Chronic obstructive pulmonary disease, unspecified; I34.0 Nonrheumatic mitral (valve) insufficiency; R63.4 Abnormal weight loss; E78.5 Hyperlipidemia, unspecified; I25.10 Atherosclerotic heart disease of native coronary artery without angina pectoris; E78.00 Pure hypercholesterolemia, unspecified; N40.0 Benign prostatic hyperplasia without lower urinary tract symptoms; G20 Parkinson's disease; Z95.1 Presence of aortocoronary bypass graft
CPT/HCPCS: 36415; 70450-TC; 71045-TC-FY; 80053; 81003; 82803; 82962; 83036; 83735; 84443; 84484; 85025; 85610; 85730; 93005; 93010; 93306-TC; 93880-TC; 97116-GP; 97161-GP; 99285-25; C9803-CS; G0378; U0003; U0005